=== PATIENT | female | born 1950 | race African-American/Black ===

== ENCOUNTER 2016-12-17 09:46 | Inpatient (IN) | payer OTHER ==
[2016-12-17 09:53] VITALS: BMI 44.9
--- NOTE | 2016-12-17 09:57 | PDOC ---
History of Present Illness - General Chief Complaint: Cold Symptoms Stated Complaint: COUGH Time Seen by Provider: 12/17/16 09:56 - History of Present Illness Initial Comments: 64y hx of DM (non-insulin dependent) and Hypothyroidism presenting with multiple complaints but most prominently a dry cough for the past 1-2 months. She has had a dry cough for the past 1-2 months and she has seen her primary care physician but she claims his treatments haven't been helpful. She also admits to more consistent lower extremity edema with some orthopnea and increased PARTIDA. Admits to occasional nausea and non-bloody, non bilious vomiting that are not related to medication ingestion or cough. Denies fevers, chills, chest pain, palpitations, sick contacts, or other sick symptoms. 12/17/16 10:03 Past History - Past Medical History Allergies/Adverse Reactions: Allergies Allergy/AdvReac Type Severity Reaction Status Date / Time No Known Allergies Allergy Verified 12/17/16 09:53 Home Medications: Ambulatory Orders Levothyroxine [Synthroid -] 100 mcg PO DAILY #30 tablet 12/23/14 Sitagliptin Phos/Metformin HCl [Janumet 50-500 mg Tablet] 1 each PO DAILY #30 tablet 12/23/14 Diabetes: Yes Thyroid Disease: Yes - Surgical History Abdominal Surgery: Yes (D&C) - Psycho/Social/Smoking Cessation Hx Anxiety: No Suicidal Ideation: No Smoking History: Former smoker Have you smoked in the past 12 months: No Information on smoking cessation initiated: No Hx Alcohol Use: No Drug/Substance Use Hx: No Substance Use Type: None Hx Substance Use Treatment: No Review of Systems - Review of Systems Constitutional: No: Chills, Diaphoresis, Fever, Loss of Appetite HEENTM: No: Blurred Vision, Recent change in vision Respiratory: Yes: Cough, Orthopnea, Shortness of Breath, SOB with Exertion. No : Wheezing, Productive cough, Hemoptysis Cardiac (ROS): Yes: Edema. No: Chest Pain, Irregular Heart Rate, Lightheadedness ABD/GI: Yes: Nausea, Vomiting. No: Abdominal Distended, Diarrhea : No: Burning, Dysuria, Discharge Musculoskeletal: Yes: Joint Pain. No: Back Pain Integumentary: No: Bruising Neurological: No: Headache, Numbness *Physical Exam - Vital Signs Last Vital Signs Temp Pulse Resp BP Pulse Ox 98.8 F 87 20 130/91 98 12/17/16 09:47 12/17/16 09:47 12/17/16 09:47 12/17/16 09:47 12/17/16 09:47 - Physical Exam General Appearance: Yes: Nourished, Appropriately Dressed, Obese. No: Apparent Distress HEENT: positive: EOMI, VALENTINE, Normal ENT Inspection, Pharynx Normal Neck: positive: Trachea midline, Other (THyroidectomy scar well healed). negative: Tender, Normal Thyroid Respiratory/Chest: positive: Crackles. negative: Chest Tender, Lungs Clear ( Mild crackles in bilateral lower lung bases.), Respiratory Distress, Accessory Muscle Use Cardiovascular: positive: Regular Rhythm, Regular Rate, Edema (Bilateral lower extremity 1+ pitting edema), JVD, Murmur, Systolic Murmur Gastrointestinal/Abdominal: positive: Normal Bowel Sounds, Flat, Soft. negative : Tender, Organomegaly, Pulsatile Mass Extremity: positive: Normal Range of Motion. negative: Normal Inspection ( stiffness of knees bilaterally) Neurologic: positive: Fully Oriented, Alert, Normal Mood/Affect ED Treatment Course - LABORATORY CBC & Chemistry Diagram: 12/17/16 09:40 12/17/16 10:56 Medical Decision Making - Medical Decision Making 66 year old with hypothyroidism and non-insulin dependent diabetes presenting with SOB, PARTIDA, orthopnea, and bilateral lower extremity edema with a heart murmur. This is most concerning for new CHF with risk factors included previous history of HTN and obesity. The CHF is most likely due to a heart valve abnormality (likely / AR) given cardio-auscultation findings. Less likely infectious in etiology given dry cough and chronicity plus lack of fever. Will follow up CXR, labs, and cardiac enzymes. 12/17/16 11:20 12/17/16 11:37 CBC significant for HgB of 5.5 with other lines WNL. Will transfuse 1 pack RBCs and admit for microcytic (most likely mechanical hemolysis from valvular abnormality although no schistocytes on the differential) anemic workup. 12/17/16 11:38 12/17/16 13:38 *DC/Admit/Observation/Transfer Diagnosis at time of Disposition: Microcytic anemia - Discharge Dispostion Condition at time of disposition: Improved Admit: Yes Decision to Admit order Date/Time: 12/17/16 13:39 - Attestations Physician Attestion: 12/17/16 13:41 I, Dr. Keesha Lozano, attest that this document has been prepared under my direction and personally reviewed by me in its entirety. I further attest, that it accurately reflects all work, treatment, procedures and medical decision -making performed by me.
[2016-12-17 11:09] LABS: BASOPHIL 2.3 % (0-2.0); EOSINOPHIL 1.7 % (0-4.5); MCHC 26.5 g/dl (32.0-36.0); MEAN CELL VOLUME 56.4 fl (80-96); MEAN PLT VOLUME 8.5 fl (7.5-11.1); NEUTROPHILS 58.8 % (42.8-82.8); PLATELET COUNT 405 K/MM3 (134-434); RDW 24.2 % (11.6-15.6)
[2016-12-17 11:11] LABS: MCH 14.9 pg (25.7-33.7)
--- NOTE | 2016-12-17 11:25 | PDOC ---
Attending Attestation - Resident Resident Name: BlakeKeesha - ED Attending Attestation I have performed the following: I have examined & evaluated the patient, The case was reviewed & discussed with the resident, I agree w/resident's findings & plan, Exceptions are as noted - HPI HPI: 12/17/16 11:17 66-year-old female presents with persistent and worsening cough/sob over 1 month. no cp/f/c, + orthopnea. Baseline minimal exertion 2/2 morbid obesity and knee problems, but states dyspnea on minimal exertion. - Physicial Exam PE: 12/17/16 11:19 VS as noted tachypneic but alert, speaking 6-7 words slight bibasilar crackles, otherwise clear without wheeze or focally decreased BS abd soft no pitting edema - Medical Decision Making 12/17/16 11:20 Patient seen and evaluated with the resident. I agree with the overall evaluation, assessment, and management with the following summary of visit: 66-year-old female with history of hypothyroidism and diabetes presents with one month of progressive shortness of breath and orthopnea. Presentation seems most consistent with volume overload or CHF, question secondary to ACS versus valvular disease versus thyroid disease versus other metabolic abnormality. Check labs including troponin EKG, chest x-ray Reassess, likely admission for cardiac workup 12/17/16 11:25 CBC notes marked anemia. Will need PRBC and admission.
[2016-12-17 11:28] LABS: ANION GAP 7 (8-16); CALCIUM 9.9 mg/dL (8.5-10.1); CO2 29 mmol/L (21-32); CREATININE 0.6 mg/dL (0.55-1.02); GLUCOSE,RANDOM 85 mg/dL (74-106)
[2016-12-17 11:30] LABS: TROPONIN I < 0.02 ng/ml (0.00-0.05)
[2016-12-17 12:03] LABS: FREE T4 0.94 ng/dl (0.76-1.46); THYROID STIMULATING HORMONE 6.35 uIU/ml (0.358-3.74)
--- NOTE | 2016-12-17 12:35 | EKG ---
Test Reason : Blood Pressure : / mmHG Vent. Rate : 086 BPM Atrial Rate : 086 BPM P-R Int : 162 ms QRS Dur : 082 ms QT Int : 366 ms P-R-T Axes : 000 164 151 degrees QTc Int : 437 ms SINUS RHYTHM NOTE: LEAD REVERSAL.IN LIMB LEADS REPEAT TRACING. Confirmed by SHE TODD MD ([id number]) on 12/17/2016 12:34:57 PM Referred By: Confirmed By:SHE TODD MD
[2016-12-17 13:54] LABS: ANISOCYTOSIS 4+; HYPOCHROMIA 4+; MICROCYTOSIS 4+; POLYCHROMASIA 1+
[2016-12-17 13:55] LABS: TARGET CELLS 2+; TEAR DROP CELLS 2+
[2016-12-18] MEDS: LEVOTHYROXINE NA 100 MCG TABLET (FP) PO SCH (06:33)
[2016-12-18] MEDS: sitaGLIPtin PHOSPHATE 50 MG TABLET PO SCH (06:33)
[2016-12-18 09:25] LABS: BASOPHIL 0.5 % (0-2.0); EOSINOPHIL 2.4 % (0-4.5); MCHC 27.5 g/dl (32.0-36.0); MEAN PLT VOLUME 8.4 fl (7.5-11.1); NEUTROPHILS 65.5 % (42.8-82.8); PLATELET COUNT 354 K/MM3 (134-434); RDW 28.4 % (11.6-15.6); WHITE BLOOD COUNT 10.9 K/mm3 (4.0-10.0)
[2016-12-18 09:32] LABS: MCH 16.8 pg (25.7-33.7)
[2016-12-18] MEDS ORDERED: ACETAMINOPHEN 325 MG TABLET (FP) PO PRN (11:17)
--- NOTE | 2016-12-18 11:59 | HP ---
Admitting History and Physical - Admission History of Present Illness: 64y hx of DM (non-insulin dependent) and Hypothyroidism presenting with multiple complaints but most prominently a dry cough for the past 1-2 months. She has had a dry cough for the past 1-2 months. She also admits to more consistent lower extremity edema with some orthopnea and increased PARTIDA. Admits to occasional nausea and non-bloody, non bilious vomiting. Pt continues with sob on minimal exertion no cp - Past Medical History Cardiovascular: Yes: Hyperlipdemia Pulmonary: Yes: COPD Endocrine: Yes: Diabetes Mellitus, Hypothyroidism - Smoking History Smoking history: Former smoker Have you smoked in the past 12 months: No - Alcohol/Substance Use Hx Alcohol Use: No Home Medications - Allergies Allergies/Adverse Reactions: Allergies Allergy/AdvReac Type Severity Reaction Status Date / Time No Known Allergies Allergy Verified 12/17/16 09:53 - Home Medications Home Medications: Ambulatory Orders Levothyroxine [Synthroid -] 100 mcg PO DAILY #30 tablet 12/23/14 Sitagliptin Phos/Metformin HCl [Janumet 50-500 mg Tablet] 1 each PO DAILY #30 tablet 12/23/14 Review of Systems - Review of Systems Cardiovascular: reports: Shortness of Breath Respiratory: reports: SOB, SOB on Exertion Gastrointestinal: reports: Bloating, Nausea, Vomiting Genitourinary: reports: No Symptoms Physical Examination Vital Signs: Vital Signs Temperature 98.9 F 12/18/16 06:00 Pulse Rate 77 12/18/16 06:00 Respiratory Rate 20 12/18/16 06:00 Blood Pressure 129/63 12/18/16 06:00 O2 Sat by Pulse Oximetry (%) 96 12/18/16 00:13 Neck: Yes: Supple Cardiovascular: Yes: Murmur, S1, S2 Respiratory: Yes: Diminished, On Nasal O2 Gastrointestinal: Yes: Normal Bowel Sounds, Soft Labs: CBC, BMP 12/18/16 09:00 Imaging - Results X-ray: Report Reviewed Problem List - Problems (1) Anemia Assessment/Plan: R/O GI LOSS TRANSFUSE MONITOR LABS PPI GI CONSULT Code(s): D64.9 - ANEMIA, UNSPECIFIED (2) GI (gastrointestinal bleed) Assessment/Plan: R/O GI LOSS TRANSFUSE W/U ORDERED MONITOR LABS PPI GI CONSULT Code(s): K92.2 - GASTROINTESTINAL HEMORRHAGE, UNSPECIFIED (3) Dyspnea Assessment/Plan: MAYBE DUE TO ANEMIA ECHO CARDIO Code(s): R06.00 - DYSPNEA, UNSPECIFIED (4) Diabetes Assessment/Plan: [facility] END[facility] Code(s): E11.9 - TYPE 2 DIABETES MELLITUS WITHOUT COMPLICATIONS
[2016-12-18 12:14] LABS: ALBUMIN 2.9 g/dl (3.4-5.0); ANION GAP 6 (8-16); CO2 31 mmol/L (21-32); GLUCOSE,RANDOM 112 mg/dL (74-106); SGPT/ALT 18 U/L (12-78)
[2016-12-18 12:19] LABS: ALK PHOS 70 U/L (45-117); BILIRUBIN,TOTAL 0.6 mg/dL (0.2-1.0); CREATININE 0.5 mg/dL (0.55-1.02); SGOT/AST 21 U/L (15-37); TOT PROT 6.4 g/dl (6.4-8.2); TROPONIN I < 0.02 ng/ml (0.00-0.05)
[2016-12-18] MEDS: ALBUTEROL SO4 2.5/IPRATROPIUM 0.5 INH SOL 3 ML VIAL.NEB. NEB SCH ×2 (13:15→18:03)
--- NOTE | 2016-12-18 14:12 | PN ---
Progress Note (short form) - Note Progress Note: PULMONARY CONSULTATION DICTATED 12/18/16 IMP DYSPNEA LIKELY SECONDARY TO SEVERE ANEMIA,? CARDIAC COUGH ? OBSTRUCTIVE AIRWAY DISEASE,? GERD LIKELY OSAS MORBID OBESITY HYPOTHYROIDISM PLAN TRANSFUSE MONITOR H+H INHALED BRONCHODILATORS PRN ECHO CHEST CT PFTS OUTPATIENT GI EVALUATION SLEEP STUDIES OUTPATIENT INPATIENT SLEEP SCREEN DR EM Problem List - Problems (1) Anemia Code(s): D64.9 - ANEMIA, UNSPECIFIED (2) Diabetes Code(s): E11.9 - TYPE 2 DIABETES MELLITUS WITHOUT COMPLICATIONS (3) Dyspnea Code(s): R06.00 - DYSPNEA, UNSPECIFIED (4) GI (gastrointestinal bleed) Code(s): K92.2 - GASTROINTESTINAL HEMORRHAGE, UNSPECIFIED (5) Cough Code(s): R05 - COUGH
--- NOTE | 2016-12-18 14:17 | CON.CARD ---
Consult Consult Specialty:: Cardiology Referred by:: Dr Shah Reason for Consultation:: SOB - History of Present Illness Chief Complaint: soboe History of Present Illness: 64y hx of NIDDM, surgical hypothyroidism, morbid obesity, colon polyps admitted with worsening PARTIDA and cough over the past few weeks without chest pain, orthopnea, pnd or edema. No palpitations dizziness or syncope. Found with severe anemia. - History Source History Provided By: Patient, Medical Record - Past Medical History Cardio/Vascular: Yes: Hyperlipdemia Pulmonary: Yes: COPD Endocrine: Yes: Diabetes Mellitus, Hypothyroidism - Alcohol/Substance Use Hx Alcohol Use: No - Smoking History Smoking history: Former smoker Have you smoked in the past 12 months: No Home Medications - Allergies Allergies/Adverse Reactions: Allergies Allergy/AdvReac Type Severity Reaction Status Date / Time No Known Allergies Allergy Verified 12/17/16 09:53 - Home Medications Home Medications: Ambulatory Orders Levothyroxine [Synthroid -] 100 mcg PO DAILY #30 tablet 12/23/14 Sitagliptin Phos/Metformin HCl [Janumet 50-500 mg Tablet] 1 each PO DAILY #30 tablet 12/23/14 Review of Systems - Review of Systems Constitutional: reports: Lethargy, Weakness Eyes: reports: No Symptoms HENT: reports: No Symptoms Neck: reports: No Symptoms Cardiovascular: reports: Shortness of Breath Respiratory: reports: Cough Musculoskeletal: reports: No Symptoms Integumentary: reports: No Symptoms Neurological: reports: No Symptoms - Risk Factors Known Risk Factors: Yes: Diabetes Mellitus Vital Signs: Vital Signs Temperature 98.9 F 12/18/16 06:00 Pulse Rate 88 12/18/16 13:10 Respiratory Rate 20 12/18/16 06:00 Blood Pressure 129/63 12/18/16 06:00 O2 Sat by Pulse Oximetry (%) 96 12/18/16 13:10 Constitutional: Yes: No Distress, Calm Eyes: Yes: Conjunctiva Clear, EOM Intact HENT: Yes: Atraumatic, Normocephalic Neck: Yes: Supple, Trachea Midline Respiratory: Yes: CTA Bilaterally Gastrointestinal: Yes: Normal Bowel Sounds, Abdomen, Obese Cardiovascular: Yes: Regular Rate and Rhythm JVD: No Carotid Bruit: No PMI: Non-Displaced Heart Sounds: Yes: S1, S2 Edema: No Peripheral Pulses WNL: Yes - Other Data Labs, Other Data: CBC, BMP 12/18/16 09:00 12/18/16 11:30 Troponin, BNP 12/18/16 12/18/16 11:30 11:30 Troponin I < 0.02 Cancelled B-Natriuretic Peptide 55.44 Troponin, BNP 12/18/16 12/18/16 11:30 11:30 Troponin I < 0.02 Cancelled B-Natriuretic Peptide 55.44 limb lead reversal, no acute st changes. Echo: Pending Imaging - Results Chest X-ray: Report Reviewed (henry tds cannot ro lll infilt.) EKG: Report Reviewed Assessment/Plan The symptoms are most likely due to her severe anemia. --transfuse as needed, GI evaluation. --No evidence of active/symptomatic CAD or CHF --Echo pending --would defer ischemia work up until she is a stable outpatient.
[2016-12-18] MEDS ORDERED: INSULIN (NOVOLOG) ASPART 100 UNITS/ML 10ML VIAL SQ SCH (16:30)
--- NOTE | 2016-12-18 17:00 | CONS ---
DATE OF CONSULTATION: 12/18/2016 PULMONARY CONSULTATION REFERRING PHYSICIAN: Justin Laboy M.D. HISTORY OF PRESENT ILLNESS: The patient is a 66-year-old black female, past medical history of hypothyroidism, morbid obesity, non-insulin dependent diabetes mellitus, history of tobacco use about half pack to three-quarters pack per day for many years, quit 14 years ago. Admitted to [facility] with complaint of increasing shortness of breath, dyspnea on exertion, nonproductive cough. Patient states the past month or two she was diagnosed with progressive increasing shortness of breath and dyspnea on exertion. She also complained of increasing orthopnea. She states she walks moderate to short distances and gets dyspnea. She also states she has had a cough which is nonproductive. Denies any chest pain or palpitations. Unsure whether or not she has wheezes. She presented to the emergency room above. In the emergency room, she is felt to have possible volume overload. She is also noted to be markedly anemic with hemoglobin of 5 g, which was transfused. She denies any GI bleed, she denies any hematemesis . She does complain of some abdominal discomfort. She denies any weight loss or night sweats, denies any hemoptysis. Denies any history of pneumonia, COPD or asthma in the past. Denies any history of cardiac disease. PAST MEDICAL HISTORY: Again includes non-insulin dependent diabetes mellitus, morbid obesity. No thyroid problems as per patient. diabetes mellitus. REVIEW OF SYSTEMS: Positive orthopnea. Positive dyspnea. No chest pain. No palpitations. Positive cough, no wheezing, no hemoptysis. Mild abdominal discomfort, nausea. No lower extremity edema. CURRENT MEDICATIONS: Include Tylenol, DuoNeb, Januvia, Novolog, pantoprazole, and Synthroid. PHYSICAL EXAMINATION: General: The patient is a morbidly obese black female, well-developed, well-nourished, awake, alert, appears in no acute respiratory distress. She is sitting up in bed. She is currently afebrile. Heart rate is 88, blood pressure is 129/63, respiratory rate is 20, and O2 saturation is 96% on 2 L. HEENT: Head is normocephalic, atraumatic. Neck: Supple. Heart: Regular. S1, S2. Chest: Diminished breath sounds bilaterally. Bibasilar crackles. Abdomen: Soft. Bowel sounds positive. Extremities: No cyanosis, edema. LABORATORY: WBC is 12.0, hemoglobin 5.5, hematocrit 20.7, and platelet count of 405,000. Repeat after transfusion 10.9. WBC: hemoglobin 6.7, hematocrit 24.4, platelet count of . Electrolytes: BUN is 8, creatinine is 0.5. BNP is 55. TSH is 6.88. Chest x-ray: poor inspiratory effort but no acute infiltration or effusions. IMPRESSION: 1. Dyspnea, etiology to be determined. Likely multiple factors. One, possible secondary to mild cardiac, possibly secondary to severe anemia, three less likely obstructive airway disease. 2 . Cough, etiology undetermined, rule out possible secondary to mild obstructive airway disease, or possible secondary to gastroesophageal reflux disease, hyperactive airway syndrome with nasal drip, possible congestive heart failure. 3. Likely obstructive sleep apnea syndrome. PLAN: Monitor H&H. Transfuse inhaled bronchodilators p.r.n., schedule for obtain echocardiogram, will schedule for PFTs as outpatient, and so patient also consider sleep studies as outpatient. GAMAL EM M.D. SABINE/[id number]
--- NOTE | 2016-12-18 18:29 | CON.GI ---
Consult Consult Specialty:: gastroenterology Referred by:: Dr Shah - History of Present Illness History of Present Illness: 66y/ female hx of NIDDM, surgical hypothyroidism, morbid obesity, colon polyps admitted with worsening PARTIDA and cough over the past few weeks without chest pain , orthopnea, pnd or edema. No palpitations dizziness or syncope.On routine labs he was noted to have severe anemia. She has 1 year history of rectal bleeding which she claims to be secondary to bleeding hemorrhoids. She denies abdominal pain, and change in bowel habits. - Past Medical History Cardio/Vascular: Yes: Hyperlipdemia Pulmonary: Yes: COPD Endocrine: Yes: Diabetes Mellitus, Hypothyroidism - Alcohol/Substance Use Hx Alcohol Use: No - Smoking History Smoking history: Former smoker Have you smoked in the past 12 months: No Home Medications - Allergies Allergies/Adverse Reactions: Allergies Allergy/AdvReac Type Severity Reaction Status Date / Time No Known Allergies Allergy Verified 12/17/16 09:53 - Home Medications Home Medications: Ambulatory Orders Levothyroxine [Synthroid -] 100 mcg PO DAILY #30 tablet 12/23/14 Sitagliptin Phos/Metformin HCl [Janumet 50-500 mg Tablet] 1 each PO DAILY #30 tablet 12/23/14 Review of Systems - Review of Systems Constitutional: denies: Fever Eyes: denies: Blind Spots HENT: denies: Difficult Swallowing Neck: denies: Decreased ROM, Tenderness Respiratory: denies: Cough Gastrointestinal: reports: Rectal Bleeding. denies: Abdominal Pain, Constipation Physical Exam-GI Vital Signs: Vital Signs Temperature 98.9 F 12/18/16 14:00 Pulse Rate 86 12/18/16 14:00 Respiratory Rate 20 12/18/16 14:00 Blood Pressure 114/48 12/18/16 14:00 O2 Sat by Pulse Oximetry (%) 96 12/18/16 13:10 Constitutional: Yes: Well Nourished Eyes: Yes: Conjunctiva Clear HENT: Yes: Atraumatic Neck: Yes: Supple Cardiovascular: Yes: Regular Rate and Rhythm Respiratory: Yes: CTA Bilaterally ...Palpate: Yes: Soft. No: Firm/Rigid, Guarding, Hepatomegaly, Mass, Pulsatile Mass, Splenomegaly, Tenderness Labs: CBC, BMP 12/18/16 09:00 12/18/16 11:30 Problem List - Problems (1) Anemia Code(s): D64.9 - ANEMIA, UNSPECIFIED (2) Rectal bleeding Assessment/Plan: R> for colonoscopy once medicall ycleared Transfuse to hemoglobin greater than 8 Code(s): K62.5 - HEMORRHAGE OF ANUS AND RECTUM
[2016-12-18] MEDS ORDERED: SODIUM CHLORIDE 100 ML IVPB ONE (20:21)
[2016-12-18] MEDS ORDERED: PANTOPRAZOLE SODIUM 40 MG VIAL ONE (20:21)
[2016-12-18] MEDS ORDERED: FUROSEMIDE 40 MG/4 ML INJECTABLE VIAL IVPUSH ONE (20:30)
[2016-12-18 21:17] LABS: URINE APPEARANCE CLEAR; URINE BILIRUBIN NEGATIVE (NEGATIVE); URINE BLOOD NEGATIVE (NEGATIVE); URINE COLOR STRAW; URINE GLUCOSE (UA) NEGATIVE (NEGATIVE); URINE KETONE NEGATIVE (NEGATIVE); URINE LEUK ESTERASE NEGATIVE (NEGATIVE); URINE NITRITE NEGATIVE (NEGATIVE); URINE PROTEIN NEGATIVE (NEGATIVE); URINE UROBILINOGEN NEGATIVE mg/dL (0.2-1.0)
[2016-12-18] MEDS: INSULIN SLIDING SCALE (NOVOLOG) 1 VIAL SQ SCH (21:52)
[2016-12-18] MEDS ORDERED: ALPRAZolam 0.25 MG TABLET PO ONE (22:00)
--- NOTE | 2016-12-19 00:22 | CONSULT ---
Consult Consult Specialty:: endocrine Reason for Consultation:: hypothyroidism - History of Present Illness Chief Complaint: weakness History of Present Illness: 64y hx of DM (non-insulin dependent) and Hypothyroidism presenting with multiple complaints but most prominently a dry cough for the past 1-2 months. She has had a dry cough for the past 1-2 months. She also admits to more consistent lower extremity edema with some orthopnea and increased PARTIDA. Admits to occasional nausea,weakness and difficulty catching her breath,with slight walking - History Source History Provided By: Patient - Past Medical History Cardio/Vascular: Yes: Hyperlipdemia Pulmonary: Yes: COPD Endocrine: Yes: Diabetes Mellitus, Hypothyroidism - Alcohol/Substance Use Hx Alcohol Use: No - Smoking History Smoking history: Former smoker Have you smoked in the past 12 months: No Home Medications - Allergies Allergies/Adverse Reactions: Allergies Allergy/AdvReac Type Severity Reaction Status Date / Time No Known Allergies Allergy Verified 12/17/16 09:53 - Home Medications Home Medications: Ambulatory Orders Levothyroxine [Synthroid -] 100 mcg PO DAILY #30 tablet 12/23/14 Sitagliptin Phos/Metformin HCl [Janumet 50-500 mg Tablet] 1 each PO DAILY #30 tablet 12/23/14 Review of Systems - Review of Systems Constitutional: reports: Loss of Appetite, Weakness Eyes: reports: No Symptoms HENT: reports: No Symptoms Neck: reports: No Symptoms Cardiovascular: reports: Shortness of Breath Respiratory: reports: Cough, Exercise Intolerance, SOB, SOB on Exertion Gastrointestinal: reports: Bloating, Constipation Genitourinary: reports: No Symptoms Breasts: reports: No Symptoms Reported Musculoskeletal: reports: Back Pain, Extremity Pain, Joint Swelling, Muscle Pain , Muscle Cramps Integumentary: reports: No Symptoms Neurological: reports: Unsteady Gait, Weakness Endocrine: reports: Intolerance to Cold Psychiatric: reports: Anxiety Physical Exam Vital Signs: Vital Signs Temperature 98.9 F 12/18/16 21:47 Pulse Rate 88 12/18/16 21:47 Respiratory Rate 20 12/18/16 21:47 Blood Pressure 137/84 12/18/16 21:47 O2 Sat by Pulse Oximetry (%) 97 12/18/16 21:00 Constitutional: Yes: Anxious Eyes: Yes: EOM Intact HENT: Yes: Normocephalic Neck: Yes: Thyromegaly Cardiovascular: Yes: Regular Rate and Rhythm Respiratory: Yes: CTA Bilaterally Gastrointestinal: Yes: Normal Bowel Sounds ...Rectal Exam: Yes: Deferred Renal/: Yes: WNL Breast(s): Yes: WNL Musculoskeletal: Yes: Muscle Weakness Extremities: Yes: WNL Edema: Yes Edema: LLE: Trace, RLE: Trace Peripheral Pulses WNL: Yes Labs: CBC, BMP 12/18/16 09:00 12/18/16 11:30 Problem List - Problems (1) Anemia Code(s): D64.9 - ANEMIA, UNSPECIFIED (2) Cough Code(s): R05 - COUGH (3) Diabetes Code(s): E11.9 - TYPE 2 DIABETES MELLITUS WITHOUT COMPLICATIONS (4) Dyspnea Code(s): R06.00 - DYSPNEA, UNSPECIFIED (5) Rectal bleeding Code(s): K62.5 - HEMORRHAGE OF ANUS AND RECTUM Assessment/Plan Current Active Problems Anemia (Acute) Cough (Acute) Diabetes (Acute) Dyspnea (Acute) GI (gastrointestinal bleed) (Acute) Microcytic anemia (Acute) Rectal bleeding (Acute) Abnormal Lab Results 12/17/16 12/17/16 12/18/16 11:34 12:08 09:00 WBC 10.9 H Hgb 6.7 L* D Hct 24.4 L D MCV 61.0 L MCH 16.8 L MCHC 27.5 L RDW 28.4 H Anion Gap Creatinine Random Glucose Ferritin Albumin TSH Crossmatch See Detail See Detail 12/18/16 12/18/16 12/18/16 11:30 12:25 12:30 WBC Hgb Hct MCV MCH MCHC RDW Anion Gap 6 L Creatinine 0.5 L Random Glucose 112 H D Ferritin 6.5 L Albumin 2.9 L TSH 6.88 H D Crossmatch Laboratory Results - last 24 hr 12/17/16 12/17/16 12/18/16 11:34 12:08 05:35 WBC RBC Hgb Hct MCV MCH MCHC RDW Plt Count MPV Neutrophils % Lymphocytes % Monocytes % Eosinophils % Basophils % Sodium Potassium Chloride Carbon Dioxide Anion Gap BUN Creatinine Creat Clearance w eGFR POC Glucometer Random Glucose Hemoglobin A1c % Cancelled Calcium Ferritin Total Bilirubin AST ALT Alkaline Phosphatase Creatine Kinase Troponin I B-Natriuretic Peptide Total Protein Albumin TSH Urine Color Urine Appearance Urine pH Ur Specific [place] Urine Protein Urine Glucose (UA) Urine Ketones Urine Blood Urine Nitrite Urine Bilirubin Urine Urobilinogen Ur Leukocyte Esterase Blood Type AB NEGATIVE AB NEGATIVE Antibody Screen Negative Crossmatch See Detail See Detail 12/18/16 12/18/16 12/18/16 09:00 11:30 11:30 WBC 10.9 H RBC 3.99 Hgb 6.7 L* D Hct 24.4 L D MCV 61.0 L MCH 16.8 L MCHC 27.5 L RDW 28.4 H Plt Count 354 MPV 8.4 Neutrophils % 65.5 Lymphocytes % 25.0 Monocytes % 6.6 Eosinophils % 2.4 Basophils % 0.5 Sodium 143 Potassium 4.1 Chloride 106 Carbon Dioxide 31 Anion Gap 6 L BUN 8 D Creatinine 0.5 L Creat Clearance w eGFR > 60 POC Glucometer Random Glucose 112 H D Hemoglobin A1c % Calcium 9.0 Ferritin Total Bilirubin 0.6 D AST 21 D ALT 18 Alkaline Phosphatase 70 Creatine Kinase 82 Cancelled Troponin I < 0.02 Cancelled B-Natriuretic Peptide 55.44 Total Protein 6.4 Albumin 2.9 L TSH Urine Color Urine Appearance Urine pH Ur Specific [place] Urine Protein Urine Glucose (UA) Urine Ketones Urine Blood Urine Nitrite Urine Bilirubin Urine Urobilinogen Ur Leukocyte Esterase Blood Type Antibody Screen Crossmatch 12/18/16 12/18/16 12/18/16 12:15 12:25 12:30 WBC RBC Hgb Hct MCV MCH MCHC RDW Plt Count MPV Neutrophils % Lymphocytes % Monocytes % Eosinophils % Basophils % Sodium Potassium Chloride Carbon Dioxide Anion Gap BUN Creatinine Creat Clearance w eGFR POC Glucometer Random Glucose Hemoglobin A1c % 5.3 Calcium Ferritin 6.5 L Total Bilirubin AST ALT Alkaline Phosphatase Creatine Kinase Troponin I B-Natriuretic Peptide Total Protein Albumin TSH 6.88 H D Urine Color Urine Appearance Urine pH Ur Specific [place] Urine Protein Urine Glucose (UA) Urine Ketones Urine Blood Urine Nitrite Urine Bilirubin Urine Urobilinogen Ur Leukocyte Esterase Blood Type Antibody Screen Crossmatch 12/18/16 12/18/16 12/18/16 16:13 20:00 21:46 WBC RBC Hgb Hct MCV MCH MCHC RDW Plt Count MPV Neutrophils % Lymphocytes % Monocytes % Eosinophils % Basophils % Sodium Potassium Chloride Carbon Dioxide Anion Gap BUN Creatinine Creat Clearance w eGFR POC Glucometer 107 137 Random Glucose Hemoglobin A1c % Calcium Ferritin Total Bilirubin AST ALT Alkaline Phosphatase Creatine Kinase Troponin I B-Natriuretic Peptide Total Protein Albumin TSH Urine Color Straw Urine Appearance Clear Urine pH 6.0 Ur Specific [place] 1.015 Urine Protein Negative Urine Glucose (UA) Negative Urine Ketones Negative Urine Blood Negative Urine Nitrite Negative Urine Bilirubin Negative Urine Urobilinogen Negative Ur Leukocyte Esterase Negative Blood Type Antibody Screen Crossmatch Laboratory Tests 12/18/16 12/18/16 12/18/16 11:30 12:25 16:13 POC Glucometer 107 Random Glucose 112 H D TSH 6.88 H D 12/18/16 21:46 POC Glucometer 137 Random Glucose TSH plan: bgm acmeal hs novolog scale with coverage synthroid 100mcg daily ck [id number]
[2016-12-19] MEDS: ALBUTEROL SO4 2.5/IPRATROPIUM 0.5 INH SOL 3 ML VIAL.NEB. NEB SCH ×4 (00:26→18:52)
[2016-12-19] MEDS: PANTOPRAZOLE SODIUM 40 MG in SODIUM CHLORIDE 100 ML IVPB SCH ×3 (00:30→21:57)
[2016-12-19 06:06] LABS: SERUM IRON 16 ug/dL (27-139); TOTAL IRON BINDING CAPACITY 424 ug/dL (250-450); UIBC 408 ug/dL (118-369)
[2016-12-19] MEDS: LEVOTHYROXINE NA 100 MCG TABLET (FP) PO SCH (06:23)
[2016-12-19] MEDS: sitaGLIPtin PHOSPHATE 50 MG TABLET PO SCH (06:23)
[2016-12-19] MEDS: INSULIN SLIDING SCALE (NOVOLOG) 1 VIAL SQ SCH ×4 (06:23→21:56)
[2016-12-19 07:32] LABS: BASOPHIL 0.3 % (0-2.0); EOSINOPHIL 3.2 % (0-4.5); MCHC 28.8 g/dl (32.0-36.0); MEAN CELL VOLUME 64.1 fl (80-96); MEAN PLT VOLUME 8.4 fl (7.5-11.1); NEUTROPHILS 67.4 % (42.8-82.8); PLATELET COUNT 353 K/MM3 (134-434); RDW 31.7 % (11.6-15.6); WHITE BLOOD COUNT 11.2 K/mm3 (4.0-10.0)
[2016-12-19 07:35] LABS: MCH 18.5 pg (25.7-33.7)
[2016-12-19 07:52] LABS: ALBUMIN 3.1 g/dl (3.4-5.0); ALK PHOS 77 U/L (45-117); ANION GAP 8 (8-16); BILIRUBIN,TOTAL 0.8 mg/dL (0.2-1.0); CALCIUM 9.2 mg/dL (8.5-10.1); CO2 34 mmol/L (21-32); CREATININE 0.6 mg/dL (0.55-1.02); GLUCOSE,RANDOM 118 mg/dL (74-106); SGOT/AST 23 U/L (15-37); SGPT/ALT 21 U/L (12-78); TOT PROT 6.8 g/dl (6.4-8.2)
--- NOTE | 2016-12-19 08:40 | PN ---
Progress Note, Physician History of Present Illness: SOME IMPROVEMENT - Current Medication List Current Medications: Active Medications Acetaminophen (Tylenol -) 650 mg PO Q4H PRN PRN Reason: FEVER OR PAIN Albuterol/Ipratropium (Duoneb -) 1 amp NEB QIDR [facility] Last Admin: 12/19/16 07:21 Dose: 1 amp Pantoprazole Sodium 40 mg/ (Sodium Chloride) 100 mls @ 200 mls/hr IVPB BID [facility] Last Admin: 12/19/16 00:30 Dose: 200 mls/hr Insulin Aspart (Novolog Vial Sliding Scale -) 1 vial SQ ACHS [facility] PRN Reason: Protocol Last Admin: 12/19/16 06:23 Dose: Not Given Levothyroxine Sodium (Synthroid -) 100 mcg PO DAILY@07 [facility] Last Admin: 12/19/16 06:23 Dose: 100 mcg Sitagliptin Phosphate (Januvia -) 50 mg PO DAILY@0700 [facility] Last Admin: 12/19/16 06:23 Dose: 50 mg - Objective Vital Signs: Vital Signs Temperature 98.7 F 12/19/16 05:56 Pulse Rate 88 12/19/16 05:56 Respiratory Rate 20 12/19/16 05:56 Blood Pressure 125/68 12/19/16 05:56 O2 Sat by Pulse Oximetry (%) 97 12/18/16 21:00 Cardiovascular: Yes: Regular Rate and Rhythm Respiratory: Yes: Regular, CTA Bilaterally Gastrointestinal: Yes: Normal Bowel Sounds, Soft. No: Tenderness Labs: CBC, BMP 12/19/16 06:00 12/19/16 06:00 Problem List - Problems (1) Anemia Assessment/Plan: - GI LOSS---AWAIT W/U TRANSFUSE MONITOR LABS PPI GI CONSULT Code(s): D64.9 - ANEMIA, UNSPECIFIED (2) GI (gastrointestinal bleed) Assessment/Plan: GI LOSS---W/U PENDING TRANSFUSE W/U ORDERED MONITOR LABS PPI GI CONSULT Code(s): K92.2 - GASTROINTESTINAL HEMORRHAGE, UNSPECIFIED (3) Dyspnea Assessment/Plan: MAYBE DUE TO ANEMIA ECHO CARDIO Code(s): R06.00 - DYSPNEA, UNSPECIFIED (4) Diabetes Assessment/Plan: BGM ENDO Code(s): E11.9 - TYPE 2 DIABETES MELLITUS WITHOUT COMPLICATIONS
[2016-12-19] MEDS ORDERED: PANTOPRAZOLE SODIUM 40 MG VIAL ONE ×2 (09:49→19:59)
[2016-12-19] MEDS ORDERED: SODIUM CHLORIDE 100 ML IVPB ONE ×2 (09:50→19:59)
--- NOTE | 2016-12-19 10:09 | PN ---
Progress Note (short form) - Note Progress Note: Awake and alert. Reports that her breathing is slightly better. Some dry cough and throat clearing. No hemoptysis. CT pending. Intake & Output 12/16/16 12/17/16 12/18/16 12/19/16 23:59 23:59 23:59 23:59 Intake Total 200 940 650 Output Total 2000 1200 Balance 200 -1060 -550 Weight 230 lb 219 lb 8 oz Last Vital Signs Temp Pulse Resp BP Pulse Ox 98.7 F 88 20 125/68 97 12/19/16 05:56 12/19/16 05:56 12/19/16 05:56 12/19/16 05:56 12/18/16 21:00 Active Medications Generic Name Dose Route Start Last Admin Trade Name Freq PRN Reason Stop Dose Admin Acetaminophen 650 mg 12/18/16 11:17 Tylenol - PO Q4H PRN FEVER OR PAIN Albuterol/Ipratropium 1 amp 12/18/16 12:00 12/19/16 07:21 Duoneb - NEB 1 amp QIDR YOSELYN Administration Pantoprazole Sodium 40 mg/ 100 mls @ 200 mls/hr 12/18/16 22:00 12/19/16 09:52 Sodium Chloride IVPB 200 mls/hr BID YOSELYN Administration Insulin Aspart 1 vial 12/18/16 22:00 12/19/16 06:23 Novolog Vial Sliding Scale - SQ Not Given ACHS [facility] Protocol Levothyroxine Sodium 100 mcg 12/18/16 07:00 12/19/16 06:23 Synthroid - PO 100 mcg DAILY@0700 YOSELYN Administration Sitagliptin Phosphate 50 mg 12/18/16 07:00 12/19/16 06:23 Januvia - PO 50 mg DAILY@0700 YOSELYN Administration General: Awake and alert, NAD Cardiovascular: Yes: Regular Rate and Rhythm Respiratory: Yes: Diminished at the bases, Clear Gastrointestinal: Yes: Normal Bowel Sounds, Soft. No: Tenderness Neuro: Non-focal Labs: Laboratory Results - last 24 hr 12/17/16 12/17/16 12/18/16 11:34 12:08 05:35 WBC RBC Hgb Hct MCV MCH MCHC RDW Plt Count MPV Neutrophils % Lymphocytes % Monocytes % Eosinophils % Basophils % Sodium Potassium Chloride Carbon Dioxide Anion Gap BUN Creatinine Creat Clearance w eGFR POC Glucometer Random Glucose Hemoglobin A1c % Cancelled Calcium Iron TIBC Iron Saturation Ferritin Total Bilirubin AST ALT Alkaline Phosphatase Creatine Kinase Troponin I B-Natriuretic Peptide Total Protein Albumin TSH Urine Color Urine Appearance Urine pH Ur Specific [place] Urine Protein Urine Glucose (UA) Urine Ketones Urine Blood Urine Nitrite Urine Bilirubin Urine Urobilinogen Ur Leukocyte Esterase Blood Type AB NEGATIVE AB NEGATIVE Antibody Screen Negative Crossmatch See Detail See Detail 12/18/16 12/18/16 12/18/16 11:30 11:30 12:15 WBC RBC Hgb Hct MCV MCH MCHC RDW Plt Count MPV Neutrophils % Lymphocytes % Monocytes % Eosinophils % Basophils % Sodium 143 Potassium 4.1 Chloride 106 Carbon Dioxide 31 Anion Gap 6 L BUN 8 D Creatinine 0.5 L Creat Clearance w eGFR > 60 POC Glucometer Random Glucose 112 H D Hemoglobin A1c % 5.3 Calcium 9.0 Iron TIBC Iron Saturation Ferritin Total Bilirubin 0.6 D AST 21 D ALT 18 Alkaline Phosphatase 70 Creatine Kinase 82 Cancelled Troponin I < 0.02 Cancelled B-Natriuretic Peptide 55.44 Total Protein 6.4 Albumin 2.9 L TSH Urine Color Urine Appearance Urine pH Ur Specific [place] Urine Protein Urine Glucose (UA) Urine Ketones Urine Blood Urine Nitrite Urine Bilirubin Urine Urobilinogen Ur Leukocyte Esterase Blood Type Antibody Screen Crossmatch 12/18/16 12/18/16 12/18/16 12:25 12:25 12:30 WBC RBC Hgb Hct MCV MCH MCHC RDW Plt Count MPV Neutrophils % Lymphocytes % Monocytes % Eosinophils % Basophils % Sodium Potassium Chloride Carbon Dioxide Anion Gap BUN Creatinine Creat Clearance w eGFR POC Glucometer Random Glucose Hemoglobin A1c % Calcium Iron 16 L TIBC 424 Iron Saturation 4 L Ferritin 6.5 L Total Bilirubin AST ALT Alkaline Phosphatase Creatine Kinase Troponin I B-Natriuretic Peptide Total Protein Albumin TSH 6.88 H D Urine Color Urine Appearance Urine pH Ur Specific [place] Urine Protein Urine Glucose (UA) Urine Ketones Urine Blood Urine Nitrite Urine Bilirubin Urine Urobilinogen Ur Leukocyte Esterase Blood Type Antibody Screen Crossmatch 12/18/16 12/18/16 12/18/16 16:13 20:00 21:46 WBC RBC Hgb Hct MCV MCH MCHC RDW Plt Count MPV Neutrophils % Lymphocytes % Monocytes % Eosinophils % Basophils % Sodium Potassium Chloride Carbon Dioxide Anion Gap BUN Creatinine Creat Clearance w eGFR POC Glucometer 107 137 Random Glucose Hemoglobin A1c % Calcium Iron TIBC Iron Saturation Ferritin Total Bilirubin AST ALT Alkaline Phosphatase Creatine Kinase Troponin I B-Natriuretic Peptide Total Protein Albumin TSH Urine Color Straw Urine Appearance Clear Urine pH 6.0 Ur Specific [place] 1.015 Urine Protein Negative Urine Glucose (UA) Negative Urine Ketones Negative Urine Blood Negative Urine Nitrite Negative Urine Bilirubin Negative Urine Urobilinogen Negative Ur Leukocyte Esterase Negative Blood Type Antibody Screen Crossmatch 12/19/16 12/19/16 06:00 06:00 WBC 11.2 H RBC 4.52 Hgb 8.3 L D Hct 29.0 L D MCV 64.1 L MCH 18.5 L MCHC 28.8 L RDW 31.7 H Plt Count 353 MPV 8.4 Neutrophils % 67.4 Lymphocytes % 21.4 Monocytes % 7.7 Eosinophils % 3.2 Basophils % 0.3 Sodium 142 Potassium 3.8 Chloride 100 Carbon Dioxide 34 H Anion Gap 8 BUN 10 D Creatinine 0.6 Creat Clearance w eGFR > 60 POC Glucometer Random Glucose 118 H Hemoglobin A1c % Calcium 9.2 Iron TIBC Iron Saturation Ferritin Total Bilirubin 0.8 D AST 23 ALT 21 Alkaline Phosphatase 77 Creatine Kinase Troponin I B-Natriuretic Peptide Total Protein 6.8 Albumin 3.1 L TSH Urine Color Urine Appearance Urine pH Ur Specific [place] Urine Protein Urine Glucose (UA) Urine Ketones Urine Blood Urine Nitrite Urine Bilirubin Urine Urobilinogen Ur Leukocyte Esterase Blood Type Antibody Screen Crossmatch Problem List - Problems (1) Anemia Assessment/Plan: Code(s): D64.9 - ANEMIA, UNSPECIFIED (2) GI (gastrointestinal bleed) Assessment/Plan: Code(s): K92.2 - GASTROINTESTINAL HEMORRHAGE, UNSPECIFIED (3) Dyspnea Assessment/Plan: Code(s): R06.00 - DYSPNEA, UNSPECIFIED (4) Diabetes Assessment/Plan: Code(s): E11.9 - TYPE 2 DIABETES MELLITUS WITHOUT COMPLICATIONS DYSPNEA LIKELY SECONDARY TO SEVERE ANEMIA,? CARDIAC COUGH ? OBSTRUCTIVE AIRWAY DISEASE,? GERD LIKELY OSAS MORBID OBESITY HYPOTHYROIDISM PLAN: CT Chest ordered O2 as needed BD TX PRN PFTs outpatient Need Sleep workup after discharge ECHO GI workup ongoing Dr Sheets
--- NOTE | 2016-12-19 11:57 | EKG ---
Test Reason : Blood Pressure : / mmHG Vent. Rate : 079 BPM Atrial Rate : 079 BPM P-R Int : 150 ms QRS Dur : 090 ms QT Int : 382 ms P-R-T Axes : 042 010 035 degrees QTc Int : 438 ms NORMAL SINUS RHYTHM WITH SINUS ARRHYTHMIA NORMAL ECG WHEN COMPARED WITH ECG OF 17-DEC-2016 10:44, LEFT POSTERIOR FASCICULAR BLOCK IS NO LONGER PRESENT T WAVE INVERSION NO LONGER EVIDENT IN LATERAL LEADS Confirmed by ALEJANDRO MCKEON, TREVOR ([id number]) on 12/19/2016 11:56:37 AM Referred By: Pavel HERNANDEZ Confirmed By:TREVOR ALLEN MD
--- NOTE | 2016-12-19 15:33 | PN ---
Progress Note, Physician Chief Complaint: no new complaints History of Present Illness: 64y hx of NIDDM, surgical hypothyroidism, morbid obesity, colon polyps admitted with worsening PARTIDA and cough over the past few weeks without chest pain, orthopnea, pnd or edema. No palpitations dizziness or syncope. Found with severe anemia. Seen by GI and pulmonary. Awaiting colonoscopy. Echo 12/19/16 normal EF. - Current Medication List Current Medications: Active Medications Acetaminophen (Tylenol -) 650 mg PO Q4H PRN PRN Reason: FEVER OR PAIN Albuterol/Ipratropium (Duoneb -) 1 amp NEB QIDR [facility] Last Admin: 12/19/16 11:11 Dose: 1 amp Pantoprazole Sodium 40 mg/ (Sodium Chloride) 100 mls @ 200 mls/hr IVPB BID [facility] Last Admin: 12/19/16 09:52 Dose: 200 mls/hr Insulin Aspart (Novolog Vial Sliding Scale -) 1 vial SQ ACHS [facility] PRN Reason: Protocol Last Admin: 12/19/16 11:56 Dose: Not Given Levothyroxine Sodium (Synthroid -) 100 mcg PO DAILY@0700 [facility] Last Admin: 12/19/16 06:23 Dose: 100 mcg Sitagliptin Phosphate (Januvia -) 50 mg PO DAILY@0700 [facility] Last Admin: 12/19/16 06:23 Dose: 50 mg - Objective Vital Signs: Vital Signs Temperature 98.8 F 12/19/16 14:12 Pulse Rate 85 12/19/16 14:12 Respiratory Rate 22 12/19/16 14:12 Blood Pressure 104/61 12/19/16 14:12 O2 Sat by Pulse Oximetry (%) 95 12/19/16 11:11 Constitutional: Yes: No Distress Eyes: Yes: Conjunctiva Clear, EOM Intact HENT: Yes: Atraumatic, Normocephalic Neck: Yes: Supple, Trachea Midline Cardiovascular: Yes: Regular Rate and Rhythm Respiratory: Yes: CTA Bilaterally Gastrointestinal: Yes: Normal Bowel Sounds, Soft, Abdomen, Obese Edema: No Peripheral Pulses WNL: Yes Labs: CBC, BMP 12/19/16 06:00 12/19/16 06:00 Assessment/Plan The symptoms are most likely due to her severe anemia. --transfuse as needed, GI evaluation. --No evidence of active/symptomatic CAD or CHF --Echo is normal. --would defer ischemia work up until she is a stable outpatient. --There are no cardiac contraindications to GI workup. Cardiac status is stable.
[2016-12-19] MEDS ORDERED: POLYETHYLENE GLYCOL 3350 255 GM BTL PO ONE (17:03)
[2016-12-19] MEDS ORDERED: ALPRAZolam 0.25 MG TABLET PO ONE (21:00)
[2016-12-20] MEDS: ALBUTEROL SO4 2.5/IPRATROPIUM 0.5 INH SOL 3 ML VIAL.NEB. NEB SCH ×3 (00:03→17:24)
[2016-12-20] MEDS ORDERED: BISACODYL 5 MG TABLET.DR (FP) PO ONE (04:04)
[2016-12-20] MEDS: INSULIN SLIDING SCALE (NOVOLOG) 1 VIAL SQ SCH ×4 (06:11→21:59)
[2016-12-20] MEDS: sitaGLIPtin PHOSPHATE 50 MG TABLET PO SCH (06:30)
[2016-12-20] MEDS: LEVOTHYROXINE NA 100 MCG TABLET (FP) PO SCH (06:30)
[2016-12-20 07:23] LABS: BASOPHIL 0.4 % (0-2.0); EOSINOPHIL 4.6 % (0-4.5); MCHC 29.2 g/dl (32.0-36.0); MEAN CELL VOLUME 65.5 fl (80-96); MEAN PLT VOLUME 8.5 fl (7.5-11.1); NEUTROPHILS 66.4 % (42.8-82.8); PLATELET COUNT 338 K/MM3 (134-434); RDW 31.6 % (11.6-15.6); WHITE BLOOD COUNT 12.6 K/mm3 (4.0-10.0)
[2016-12-20 07:26] LABS: MCH 19.1 pg (25.7-33.7)
--- NOTE | 2016-12-20 07:51 | PN ---
Progress Note, Physician History of Present Illness: REFUSED COLOOSCOPY D/W PT--STILL REFUSES - Current Medication List Current Medications: Active Medications Acetaminophen (Tylenol -) 650 mg PO Q4H PRN PRN Reason: FEVER OR PAIN Albuterol/Ipratropium (Duoneb -) 1 amp NEB QIDR [facility] Last Admin: 12/20/16 00:03 Dose: Not Given Pantoprazole Sodium 40 mg/ (Sodium Chloride) 100 mls @ 200 mls/hr IVPB BID [facility] Last Admin: 12/19/16 21:57 Dose: 200 mls/hr Insulin Aspart (Novolog Vial Sliding Scale -) 1 vial SQ ACHS [facility] PRN Reason: Protocol Last Admin: 12/20/16 06:11 Dose: Not Given Levothyroxine Sodium (Synthroid -) 100 mcg PO DAILY@0700 [facility] Last Admin: 12/20/16 06:30 Dose: 100 mcg Sitagliptin Phosphate (Januvia -) 50 mg PO DAILY@0700 [facility] Last Admin: 12/20/16 06:30 Dose: 50 mg Sodium Phosphate (Fleet Adult Rectal Enema -) 133 ml SC ONCE ONE Stop: 12/20/16 13:01 - Objective Vital Signs: Vital Signs Temperature 98.7 F 12/20/16 05:00 Pulse Rate 80 12/20/16 05:00 Respiratory Rate 20 12/20/16 05:00 Blood Pressure 121/64 12/20/16 05:00 O2 Sat by Pulse Oximetry (%) 98 12/19/16 20:40 Cardiovascular: Yes: Regular Rate and Rhythm Respiratory: Yes: Diminished, SOB on Exertion Gastrointestinal: Yes: Normal Bowel Sounds, Soft Labs: CBC, BMP 12/20/16 06:00 12/19/16 06:00 Problem List - Problems (1) Anemia Assessment/Plan: - GI LOSS---AWAIT W/U TRANSFUSE MONITOR LABS PPI GI CONSULT--REFUSES COLON HEM CONSULT Code(s): D64.9 - ANEMIA, UNSPECIFIED (2) GI (gastrointestinal bleed) Assessment/Plan: GI LOSS---W/U PENDING--REFUSES COLON TRANSFUSE W/U ORDERED MONITOR LABS PPI GI CONSULT Code(s): K92.2 - GASTROINTESTINAL HEMORRHAGE, UNSPECIFIED (3) Dyspnea Assessment/Plan: MAYBE DUE TO ANEMIA ECHO CARDIO Code(s): R06.00 - DYSPNEA, UNSPECIFIED (4) Diabetes Assessment/Plan: [facility] ENDO Code(s): E11.9 - TYPE 2 DIABETES MELLITUS WITHOUT COMPLICATIONS
[2016-12-20] MEDS ORDERED: SODIUM CHLORIDE 100 ML IVPB ONE ×2 (09:46→20:52)
[2016-12-20] MEDS ORDERED: PANTOPRAZOLE SODIUM 40 MG VIAL ONE ×2 (09:46→20:51)
[2016-12-20] MEDS: PANTOPRAZOLE SODIUM 40 MG in SODIUM CHLORIDE 100 ML IVPB SCH ×2 (09:50→22:02)
--- NOTE | 2016-12-20 12:41 | PN ---
Progress Note (short form) - Note Progress Note: PULMONARY SUBJECTIVE IMPROVEMENT POST PRBC'S VSS/AFEBRILE ANICTERIC DISTANT BUT CLEAR S1S2 BS+ OBESE LESS EDEMA B/L LOWER EXT LABS/MEDS/NOTES/IMAGING/MICRO/ECHO REVIEWED s (1) Anemia Assessment/Plan: Code(s): D64.9 - ANEMIA, UNSPECIFIED (2) GI (gastrointestinal bleed) Assessment/Plan: Code(s): K92.2 - GASTROINTESTINAL HEMORRHAGE, UNSPECIFIED (3) Dyspnea Assessment/Plan: Code(s): R06.00 - DYSPNEA, UNSPECIFIED (4) Diabetes Assessment/Plan: Code(s): E11.9 - TYPE 2 DIABETES MELLITUS WITHOUT COMPLICATIONS DYSPNEA LIKELY SECONDARY TO SEVERE ANEMIA,? CARDIAC COUGH ? OBSTRUCTIVE AIRWAY DISEASE,? GERD LIKELY OSAS MORBID OBESITY HYPOTHYROIDISM PLAN: O2 as needed BD TX PRN PFTs outpatient Need Sleep workup after discharge GI workup ongoing awaiting official read on CT chest cea ordered Deven BADILLO MD
[2016-12-20] MEDS ORDERED: SODIUM PHOSPHATE/NA BIPHOS 133 ML ENEMA PR ONE (13:00)
--- NOTE | 2016-12-20 13:33 | CONSULT ---
Consult Consult Specialty:: hematology/oncology Referred by:: Reason for Consultation:: anemia - History of Present Illness History of Present Illness: Ms. Salazar is a 66 year old AA female hx of NIDDM, surgical hypothyroidism, morbid obesity, colon polyps admitted with cough and is being followed by hematology. On routine labs he was noted to have severe anemia. She does has a history of rectal bleeding which she claims to be secondary to bleeding hemorrhoids. She denies abdominal pain, and change in bowel habits.She mentioned that her living situation is "messed" up.She does not want to do the colonoscopy. - History Source History Provided By: Patient Limitations to Obtaining History: Other (poor historian) - Past Medical History Cardio/Vascular: Yes: Hyperlipdemia Pulmonary: Yes: COPD Endocrine: Yes: Diabetes Mellitus, Hypothyroidism - Alcohol/Substance Use Hx Alcohol Use: No - Smoking History Smoking history: Former smoker Have you smoked in the past 12 months: No Home Medications - Allergies Allergies/Adverse Reactions: Allergies Allergy/AdvReac Type Severity Reaction Status Date / Time No Known Allergies Allergy Verified 12/17/16 09:53 - Home Medications Home Medications: Ambulatory Orders Levothyroxine [Synthroid -] 100 mcg PO DAILY #30 tablet 12/23/14 Sitagliptin Phos/Metformin HCl [Janumet 50-500 mg Tablet] 1 each PO DAILY #30 tablet 12/23/14 Family Disease History - Family Disease History Family History: Denies Review of Systems - Review of Systems Constitutional: denies: Fever, Lethargy, Loss of Appetite, Unintentional Wgt. Loss Gastrointestinal: reports: Rectal Bleeding Breasts: reports: No Symptoms Reported Physical Exam Vital Signs: Vital Signs Temperature 98.4 F 12/20/16 09:00 Pulse Rate 87 12/20/16 09:00 Respiratory Rate 20 12/20/16 09:00 Blood Pressure 123/61 12/20/16 09:00 O2 Sat by Pulse Oximetry (%) 95 12/20/16 09:00 Constitutional: Yes: Obese Eyes: Yes: Conjunctiva Clear HENT: Yes: Atraumatic, Normocephalic Neck: Yes: Supple Cardiovascular: Yes: Regular Rate and Rhythm Respiratory: Yes: Cough, Poor Air Entry Gastrointestinal: Yes: Abdomen, Obese Labs: CBC, BMP 12/20/16 06:00 07/27/17 06:00 Imaging - Results Chest X-ray: Report Reviewed Cat Scan: Report Reviewed Problem List - Problems (1) Anemia Code(s): D64.9 - ANEMIA, UNSPECIFIED Qualifiers: Iron deficiency anemia type: other iron deficiency (2) GI (gastrointestinal bleed) Code(s): K92.2 - GASTROINTESTINAL HEMORRHAGE, UNSPECIFIED (3) Cough Code(s): R05 - COUGH (4) Diabetes Code(s): E11.9 - TYPE 2 DIABETES MELLITUS WITHOUT COMPLICATIONS (5) Obesity Code(s): E66.9 - OBESITY, UNSPECIFIED Qualifiers: Body mass index: BMI 40.0-44.9 (6) Leukocytosis Code(s): D72.829 - ELEVATED WHITE BLOOD CELL COUNT, UNSPECIFIED Assessment/Plan Severe microcytic anemia: -s.p PRBC transfusion -ordered anemia w/u -pending stool occult pending -GI consult noted -refusing colonoscopy -will order a CT a/p with contrast to r/o any mass (pelvis/colon/rectal?),if positive for any suspicious findings may persuade her for further w/u. She agree for a CT scan -for now, will follow the screening labs and CT scan. Leukocytosis: -present in 11/2014 -Likely obesity related than a clonal disorder Misc: -seems like a difficult ?living situation -Psych consult might help?
[2016-12-20] MEDS ORDERED: ALPRAZolam 0.25 MG TABLET PO PRN (16:46)
[2016-12-20] MEDS ORDERED: PANTOPRAZOLE 40 MG TABLET (FP) PO ONE (22:30)
[2016-12-20] MEDS ORDERED: ALPRAZolam 0.25 MG TABLET PO ONE (22:30)
[2016-12-21] MEDS: ALBUTEROL SO4 2.5/IPRATROPIUM 0.5 INH SOL 3 ML VIAL.NEB. NEB SCH ×4 (00:10→18:20)
[2016-12-21] MEDS: INSULIN SLIDING SCALE (NOVOLOG) 1 VIAL SQ SCH ×4 (06:14→22:00)
[2016-12-21] MEDS: sitaGLIPtin PHOSPHATE 50 MG TABLET PO SCH (06:15)
[2016-12-21] MEDS: LEVOTHYROXINE NA 100 MCG TABLET (FP) PO SCH (06:15)
--- NOTE | 2016-12-21 10:38 | PN ---
Progress Note, Physician - Current Medication List Current Medications: Active Medications Acetaminophen (Tylenol -) 650 mg PO Q4H PRN PRN Reason: FEVER OR PAIN Albuterol/Ipratropium (Duoneb -) 1 amp NEB QIDR [facility] Last Admin: 12/21/16 07:23 Dose: Not Given Alprazolam (Xanax -) 0.5 mg PO Q8H PRN Last Admin: 12/20/16 22:03 Dose: 0.5 mg Insulin Aspart (Novolog Vial Sliding Scale -) 1 vial SQ [facility] PRN Reason: Protocol Last Admin: 12/21/16 06:14 Dose: Not Given Levothyroxine Sodium (Synthroid -) 100 mcg PO DAILY@0700 [facility] Last Admin: 12/21/16 06:15 Dose: 100 mcg Sitagliptin Phosphate (Januvia -) 50 mg PO DAILY@0700 [facility] Last Admin: 12/21/16 06:15 Dose: 50 mg - Objective Vital Signs: Vital Signs Temperature 98.1 F 12/21/16 05:48 Pulse Rate 86 12/21/16 05:48 Respiratory Rate 20 12/21/16 05:48 Blood Pressure 148/60 12/21/16 05:48 O2 Sat by Pulse Oximetry (%) 95 12/20/16 21:00 Labs: CBC, BMP 12/20/16 06:00 12/19/16 06:00
--- NOTE | 2016-12-21 14:33 | PN ---
Progress Note, Physician Chief Complaint: THIS IS MY FIRST ENCOUNTER WITH THIS PATIENT EVENTS AND NOTES REVIEWED PATIENT AWAKE STATES SHE FEELS BETTER NAD - Current Medication List Current Medications: Active Medications Acetaminophen (Tylenol -) 650 mg PO Q4H PRN PRN Reason: FEVER OR PAIN Albuterol/Ipratropium (Duoneb -) 1 amp NEB QIDR [facility] Last Admin: 12/21/16 11:19 Dose: 1 amp Alprazolam (Xanax -) 0.5 mg PO Q8H PRN Last Admin: 12/20/16 22:03 Dose: 0.5 mg Insulin Aspart (Novolog Vial Sliding Scale -) 1 vial SQ ACHS [facility] PRN Reason: Protocol Last Admin: 12/21/16 12:26 Dose: Not Given Levothyroxine Sodium (Synthroid -) 100 mcg PO DAILY@0700 [facility] Last Admin: 12/21/16 06:15 Dose: 100 mcg Sitagliptin Phosphate (Januvia -) 50 mg PO DAILY@0700 [facility] Last Admin: 12/21/16 06:15 Dose: 50 mg - Objective Vital Signs: Vital Signs Temperature 99.1 F 12/21/16 14:26 Pulse Rate 99 H 12/21/16 14:26 Respiratory Rate 20 12/21/16 14:26 Blood Pressure 146/77 12/21/16 14:26 O2 Sat by Pulse Oximetry (%) 95 12/20/16 21:00 Constitutional: Yes: No Distress Eyes: Yes: WNL HENT: Yes: WNL Neck: Yes: WNL Cardiovascular: Yes: WNL Respiratory: Yes: WNL Gastrointestinal: Yes: WNL Genitourinary: Yes: WNL Musculoskeletal: Yes: WNL Extremities: Yes: WNL Peripheral Pulses WNL: Yes Integumentary: Yes: WNL Wound/Incision: Yes: Clean/Dry Neurological: Yes: WNL ...Motor Strength: WNL Psychiatric: Yes: Other Labs: CBC, BMP 12/20/16 06:00 12/19/16 06:00 Problem List - Problems (1) Anemia Code(s): D64.9 - ANEMIA, UNSPECIFIED Qualifiers: Iron deficiency anemia type: other iron deficiency (2) Diabetes Code(s): E11.9 - TYPE 2 DIABETES MELLITUS WITHOUT COMPLICATIONS (3) GI (gastrointestinal bleed) Code(s): K92.2 - GASTROINTESTINAL HEMORRHAGE, UNSPECIFIED (4) Microcytic anemia Code(s): D50.9 - IRON DEFICIENCY ANEMIA, UNSPECIFIED (5) Obesity Code(s): E66.9 - OBESITY, UNSPECIFIED Qualifiers: Body mass index: BMI 40.0-44.9 Assessment/Plan TRANSFUSE PRBC NEEDED LABS REVIEWED ONCOLOGY/GI WORKUP PATIENT REFUSING COLONOSCOPY MONITOR LEVELS
[2016-12-22] MEDS: ALBUTEROL SO4 2.5/IPRATROPIUM 0.5 INH SOL 3 ML VIAL.NEB. NEB SCH ×2 (00:06→07:30)
--- NOTE | 2016-12-22 00:12 | PN ---
Progress Note, Physician Chief Complaint: denies dyspnea or chest pain/eating well History of Present Illness: 64y hx of DM (non-insulin dependent) and Hypothyroidism presenting with multiple complaints but most prominently a dry cough for the past 1-2 months. She has had a dry cough for the past 1-2 months. She also admits to more consistent lower extremity edema with some orthopnea and increased PARTIDA. Admits to occasional nausea,weakness and difficulty catching her breath,with slight walking - Current Medication List Current Medications: Active Medications Acetaminophen (Tylenol -) 650 mg PO Q4H PRN PRN Reason: FEVER OR PAIN Albuterol/Ipratropium (Duoneb -) 1 amp NEB QIDR [facility] Last Admin: 12/22/16 00:06 Dose: Not Given Alprazolam (Xanax -) 0.5 mg PO Q8H PRN Last Admin: 12/20/16 22:03 Dose: 0.5 mg Insulin Aspart (Novolog Vial Sliding Scale -) 1 vial SQ ACHS [facility] PRN Reason: Protocol Last Admin: 12/21/16 17:39 Dose: Not Given Levothyroxine Sodium (Synthroid -) 100 mcg PO DAILY@0700 [facility] Last Admin: 12/21/16 06:15 Dose: 100 mcg Sitagliptin Phosphate (Januvia -) 50 mg PO DAILY@0700 [facility] Last Admin: 12/21/16 06:15 Dose: 50 mg - Objective Vital Signs: Vital Signs Temperature 99.3 F 12/21/16 17:30 Pulse Rate 87 12/21/16 17:30 Respiratory Rate 18 12/21/16 17:30 Blood Pressure 132/64 12/21/16 17:30 O2 Sat by Pulse Oximetry (%) 95 12/20/16 21:00 Constitutional: Yes: Calm Eyes: Yes: EOM Intact HENT: Yes: Normocephalic Neck: Yes: Trachea Midline Cardiovascular: Yes: Regular Rate and Rhythm Respiratory: Yes: CTA Bilaterally Gastrointestinal: Yes: Normal Bowel Sounds ...Rectal Exam: Yes: Deferred Genitourinary: Yes: WNL Breast(s): Yes: WNL Musculoskeletal: Yes: WNL Extremities: Yes: WNL Edema: No Peripheral Pulses WNL: Yes Integumentary: Yes: WNL Neurological: Yes: Alert, Oriented Labs: CBC, BMP 12/20/16 06:00 12/19/16 06:00 Problem List - Problems (1) Anemia Code(s): D64.9 - ANEMIA, UNSPECIFIED Qualifiers: Iron deficiency anemia type: other iron deficiency (2) Cough Code(s): R05 - COUGH (3) Diabetes Code(s): E11.9 - TYPE 2 DIABETES MELLITUS WITHOUT COMPLICATIONS (4) Dyspnea Code(s): R06.00 - DYSPNEA, UNSPECIFIED (5) Rectal bleeding Code(s): K62.5 - HEMORRHAGE OF ANUS AND RECTUM Assessment/Plan Current Active Problems Anemia (Acute) Cough (Acute) Diabetes (Acute) Dyspnea (Acute) GI (gastrointestinal bleed) (Acute) Microcytic anemia (Acute) Obesity (Acute) Rectal bleeding (Acute) Abnormal Lab Results 12/17/16 12/17/16 11:34 12:08 Crossmatch See Detail See Detail Laboratory Results - last 24 hr 12/17/16 12/17/16 12/20/16 11:34 12:08 08:30 POC Glucometer Carcinoembryonic Ag 1.0 Blood Type AB NEGATIVE AB NEGATIVE Antibody Screen Negative Crossmatch See Detail See Detail 12/21/16 06:13 POC Glucometer 150 Carcinoembryonic Ag Blood Type Antibody Screen Crossmatch Laboratory Tests 12/20/16 12/20/16 12/20/16 06:00 06:11 12:32 WBC 12.6 H RBC 4.71 Hgb 9.0 L Hct 30.8 L MCV 65.5 L MCH 19.1 L MCHC 29.2 L RDW 31.6 H POC Glucometer 123 98 12/20/16 12/20/16 12/21/16 17:14 21:56 06:13 WBC RBC Hgb Hct MCV MCH MCHC RDW POC Glucometer 109 141 150 plan: continue bgm qid awaiting ct abdomen januvia 50mg daily synthroid 100mcg daily
--- NOTE | 2016-12-22 09:31 | DS ---
Physical Examination Vital Signs: Vital Signs Temperature 99.3 F 12/21/16 17:30 Pulse Rate 87 12/21/16 17:30 Respiratory Rate 18 12/21/16 21:00 Blood Pressure 132/64 12/21/16 17:30 O2 Sat by Pulse Oximetry (%) 95 12/20/16 21:00 Findings/Remarks: PATIENT REFUSING LABS/COLONOSCOPY OR ANY WORKUP Constitutional: Yes: No Distress Eyes: Yes: WNL HENT: Yes: WNL Neck: Yes: WNL Cardiovascular: Yes: WNL Respiratory: Yes: WNL Gastrointestinal: Yes: WNL Musculoskeletal: Yes: WNL Extremities: Yes: WNL Edema: No Peripheral Pulses WNL: Yes Integumentary: Yes: WNL Wound/Incision: Yes: Clean/Dry Neurological: Yes: WNL ...Motor Strength: WNL Psychiatric: Yes: Agitated Labs: CBC, BMP 12/20/16 06:00 12/19/16 06:00 Discharge Summary Reason For Visit: MICROCYTIC ANEMIA Current Active Problems Anemia (Acute) Cough (Acute) Diabetes (Acute) Dyspnea (Acute) GI (gastrointestinal bleed) (Acute) Microcytic anemia (Acute) Obesity (Acute) Rectal bleeding (Acute) Procedures: Principal: LABS Other Procedures: CT SCANS/XRAYS Hospital Course: PATIENT FOUND TO BE ANEMIC REQUIRING WORKUP AND TRANSFUSION, PATIENT HAS DECLINED COLONOSCOPY AND LABS OULD LIKE TO CONTINUE WORKUP OUTPATIENT. I HAVE MADE HER AN APPOINTMENT TO SEE HER PMD TOMORROW MORNING AND TO CONTACT ME IF SHE HAS ANY QUESTIONS AT [phone], I ALSO EXPLAINED IF SHE FEELS ANY DISTRESS/PAIN/SX TO CALL 911 AND RETURN TO HOSPITAL. Condition: Fair - Instructions Diet, Activity, Other Instructions: SEE YOUR DOCTOR TOMORROW MORNING AT 930AM TOLERATED SOFT DIABETIC Referrals: Justin Laboy MD [Primary Care Provider] - Disposition: VNS/HOME HEALTH CARE - Home Medications Comprehensive Discharge Medication List: Ambulatory Orders Levothyroxine [Synthroid -] 100 mcg PO DAILY #30 tablet 12/23/14 Sitagliptin Phos/Metformin HCl [Janumet 50-500 mg Tablet] 1 each PO DAILY #30 tablet 12/23/14
[2016-12-22] MEDS: LEVOTHYROXINE NA 100 MCG TABLET (FP) PO SCH (09:58)
--- NOTE | 2016-12-22 10:52 | PN ---
Progress Note (short form) - Note Progress Note: PULMONARY VSS/ ANICTERIC DISTANT BUT CLEAR S1S2 BS+ OBESE LESS EDEMA B/L LOWER EXT LABS/MEDS/NOTES/IMAGING/MICRO/ECHO REVIEWED CT CHEST REVIEWED (1) Anemia Assessment/Plan: Code(s): D64.9 - ANEMIA, UNSPECIFIED (2) GI (gastrointestinal bleed) Assessment/Plan: Code(s): K92.2 - GASTROINTESTINAL HEMORRHAGE, UNSPECIFIED (3) Dyspnea Assessment/Plan: Code(s): R06.00 - DYSPNEA, UNSPECIFIED (4) Diabetes Assessment/Plan: Code(s): E11.9 - TYPE 2 DIABETES MELLITUS WITHOUT COMPLICATIONS DYSPNEA LIKELY SECONDARY TO SEVERE ANEMIA NOW RESOLVED COUGH ? OBSTRUCTIVE AIRWAY DISEASE,? GERD LIKELY OSAS MORBID OBESITY HYPOTHYROIDISM PLAN: O2 as needed BD TX PRN PFTs outpatient Need Sleep workup after discharge Deven BADILLO MD
[2016-12-22] MEDS: INSULIN SLIDING SCALE (NOVOLOG) 1 VIAL SQ SCH (12:59)
[2016-12-22] MEDS: sitaGLIPtin PHOSPHATE 50 MG TABLET PO SCH (13:02)
[2016-12-22 13:57] VITALS: BP 134/88; PULSE 85; TEMP 98.4
== END 2016-12-22 15:50 | disposition home health service (06) | DRG 812 ==
LOC: JER 09:46 → JERBED 13:03 → J7W 16:18
PROVIDERS: ADMIT Family Medicine; ATTEND Family Medicine
PROC: 30233N1 Transfusion of Nonautologous Red Blood Cells into Peripheral Vein, Percutaneous Approach (ICD-10-PCS; principal; 2016-12-19)
DX: D50.9 Iron deficiency anemia, unspecified (principal); Z68.41 Body mass index [BMI] 40.0-44.9, adult; K92.2 Gastrointestinal hemorrhage, unspecified; E11.9 Type 2 diabetes mellitus without complications; E03.9 Hypothyroidism, unspecified; Z79.84 Long term (current) use of oral hypoglycemic drugs; Z87.891 Personal history of nicotine dependence; E66.01 Morbid (severe) obesity due to excess calories; G47.33 Obstructive sleep apnea (adult) (pediatric); R05 Cough; D72.829 Elevated white blood cell count, unspecified; K21.9 Gastro-esophageal reflux disease without esophagitis
CPT/HCPCS: 36415; 36430; 71010-TC; 71250-TC; 80048; 80053; 81003; 82272; 82378; 82550; 82728; 83036; 83540; 83550; 83880; 84439; 84443; 84484; 85025; 86850; 86900; 86901; 86922; 93005; 93010; 93306-TC; 94640; 97116-GP; 97161-GP; 99284-25; P9038; P9058

== ENCOUNTER 2017-05-15 12:18 | Emergency (ER) | payer OTHER ==
[2017-05-15 12:44] VITALS: BP 131/69; PULSE 92; TEMP 97.8; BMI 43.0
--- NOTE | 2017-05-15 13:13 | PDOC ---
History of Present Illness - General Chief Complaint: Urinary Problem Stated Complaint: URINARY PROBLEM Time Seen by Provider: 05/15/17 12:54 History Source: Patient Exam Limitations: No Limitations - History of Present Illness Initial Comments: 05/15/17 13:10 c/o frequent urination for 2 weeks. Denies burning sensation, denies abd pain, back pain fever or vomiting. Pt states history of UTI in the past. Past History - Past Medical History Allergies/Adverse Reactions: Allergies Allergy/AdvReac Type Severity Reaction Status Date / Time No Known Allergies Allergy Verified 05/15/17 12:40 Home Medications: Ambulatory Orders Levothyroxine [Synthroid -] 100 mcg PO DAILY #30 tablet 12/23/14 Sitagliptin Phos/Metformin HCl [Janumet 50-500 mg Tablet] 1 each PO DAILY #30 tablet 12/23/14 Acetaminophen [Tylenol .Regular Strength -] 650 mg PO Q4H PRN #0 tablet Levothyroxine [Synthroid -] 100 mcg PO DAILY@0700 tablet 12/22/16 Cephalexin [Keflex] 500 mg PO BID #14 capsule 05/15/17 CVA: No COPD: No DVT: No Diabetes: Yes Thyroid Disease: Yes - Surgical History Abdominal Surgery: Yes (D&C) - Immunization History Immunization Up to Date: Yes - Suicide/Smoking/Psychosocial Hx Smoking History: Never smoked Have you smoked in the past 12 months: No Information on smoking cessation initiated: No Hx Alcohol Use: No Drug/Substance Use Hx: No Substance Use Type: None Hx Substance Use Treatment: No Review of Systems - Review of Systems Able to Perform ROS?: Yes Is the patient limited Yi proficient: No Constitutional: No: Symptoms Reported HEENTM: No: Symptoms Reported Respiratory: No: Symptoms reported Cardiac (ROS): No: Symptoms Reported ABD/GI: No: Symptoms Reported : Yes: Symptoms Reported *Physical Exam - Vital Signs Last Vital Signs Temp Pulse Resp BP Pulse Ox 97.8 F 92 H 16 131/69 97 05/15/17 12:40 05/15/17 12:40 05/15/17 12:40 05/15/17 12:40 05/15/17 12:40 - Physical Exam General Appearance: Yes: Nourished, Appropriately Dressed HEENT: positive: EOMI, VALENTINE, Normal ENT Inspection, TMs Normal, Pharynx Normal Neck: positive: Supple. negative: Tender Respiratory/Chest: positive: Lungs Clear, Normal Breath Sounds. negative: Chest Tender Cardiovascular: positive: Regular Rhythm, Regular Rate Gastrointestinal/Abdominal: positive: Normal Bowel Sounds, Soft Musculoskeletal: positive: Normal Inspection Extremity: positive: Normal Capillary Refill, Normal Inspection, Normal Range of Motion Integumentary: positive: Normal Color, Dry, Warm Neurologic: positive: general internist and physician leader II-XII NML intact, Fully Oriented, Alert, Normal Mood/ Affect Medical Decision Making - Medical Decision Making 05/15/17 13:11 cc: frequent urination denies fever no abd pain or back pain will check UA pt refused blood draw to check kidney functions case discussed with the [employer] CAPTAIN in 's office who is covering for Pt's PMD. she will see pt tomorrow at 115pm to follow up and go over the urine test. pt agrees with the plan of care, the address ad phone number has been given. pt understands to follow up with the provider tomorrow. pt understands that the hematuria in her urine may be infectious or it may be a symptoms of other etiologies. 05/15/17 19:55 05/15/17 20:01 *DC/Admit/Observation/Transfer Diagnosis at time of Disposition: Increased urinary frequency Hematuria Qualifiers: Hematuria type: unspecified type Qualified Code(s): R31.9 - Hematuria, unspecified - Discharge Dispostion Disposition: HOME Condition at time of disposition: Good - Prescriptions Prescriptions: Cephalexin [Keflex] 500 mg PO BID #14 capsule - Referrals Referrals: Justin Laboy MD [Primary Care Provider] - - Patient Instructions Additional Instructions: please follow with your primary care doctor tomorrow or next week for follow up you have blood in the urine this can be infection , however it must be followed up because it can be a symptom of other disease take the antibiotics as directed for 7 days [address] [facility] [address] at 1:15pm you have an appointment with the nurse practitioner covering for your doctor. 's office to see the nurse practitioner - Post Discharge Activity
[2017-05-15 14:08] LABS: URINE APPEARANCE SLCLOUDY; URINE BILIRUBIN NEGATIVE (NEGATIVE); URINE BLOOD 1+ (NEGATIVE); URINE COLOR YELLOW; URINE GLUCOSE (UA) NEGATIVE (NEGATIVE); URINE KETONE NEGATIVE (NEGATIVE); URINE LEUK ESTERASE NEGATIVE (NEGATIVE); URINE NITRITE NEGATIVE (NEGATIVE); URINE PROTEIN NEGATIVE (NEGATIVE); URINE UROBILINOGEN NEGATIVE mg/dL (0.2-1.0)
[2017-05-15 14:53] LABS: URINE BACTERIA RARE /hpf (NONE SEEN); URINE MUCUS FEW; URINE WBC 7 /hpf (3-5)
[2017-05-15 18:39] LABS: URINE LEUK ESTERASE Negative (NEGATIVE)
== END 2017-05-15 15:03 | disposition home or self-care (01) ==
LOC: JERFT 12:18
DX: R35.0 Frequency of micturition (principal)
CPT/HCPCS: 81003; 81015; 99281-25

== ENCOUNTER 2019-07-22 16:35 | Inpatient (IN) | payer OTHER ==
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
[2019-07-22 18:06] LABS: BASO % 0.6 % (0-2.0); EOS % 2.2 % (0-4.5); HEMATOCRIT 39.8 % (32.4-45.2); HEMOGLOBIN 12.3 GM/dL (10.7-15.3); LYMPH % 19.9 % (8-40); MCH 22.6 pg (25.7-33.7); MCHC 30.9 g/dl (32.0-36.0); MEAN PLT VOLUME 8.8 fl (7.5-11.1); MONO % 9.6 % (3.8-10.2); NEUT % 67.7 % (42.8-82.8); PLATELET COUNT 266 K/MM3 (134-434); RBC 5.45 M/mm3 (3.60-5.2); RDW 22.5 % (11.6-15.6); WHITE BLOOD COUNT 12.1 K/mm3 (4.0-10.0)
[2019-07-22 18:16] LABS: INR 1.08 (0.83-1.09); PROTHROMBIN TIME (PATIENT) 12.7 SEC (9.7-13.0)
[2019-07-22 18:22] LABS: ALBUMIN 3.4 g/dl (3.4-5.0); ALK PHOS 75 U/L (45-117); ANION GAP 4 MMOL/L (8-16); BILIRUBIN,TOTAL 0.2 mg/dL (0.2-1); CALCIUM 9.5 mg/dL (8.5-10.1); CHLORIDE 106 mmol/L (98-107); CO2 30 mmol/L (21-32); CREATININE 0.8 mg/dL (0.55-1.3); GLUCOSE,RANDOM 91 mg/dL (74-106); MAGNESIUM 2.4 mg/dL (1.8-2.4); PHOSPHOROUS 3.5 mg/dL (2.5-4.9); POTASSIUM 3.6 mmol/L (3.5-5.1); SGOT/AST 15 U/L (15-37); SGPT/ALT 18 U/L (13-61); SODIUM 140 mmol/L (136-145); TOT PROT 7.1 g/dl (6.4-8.2)
[2019-07-22 18:29] LABS: EPI CELLS 23.7 /HPF (0-5/HPF); HYALINE CASTS 4 /lpf (0-8); PH,URINE 5.5 (5.0-8.0); URINE APPEARANCE CLOUDY; URINE BACTERIA 298.2 /hpf (NEGATIVE); URINE BILIRUBIN NEGATIVE (NEGATIVE); URINE COLOR YELLOW; URINE GLUCOSE (UA) NEGATIVE (NEGATIVE); URINE KETONE NEGATIVE (NEGATIVE); URINE LEUK ESTERASE NEGATIVE (NEGATIVE); URINE NITRITE NEGATIVE (NEGATIVE); URINE PROTEIN NEGATIVE (NEGATIVE); URINE UROBILINOGEN 0.2 mg/dL (0.2-1.0); URINE WBC 6 /hpf (0-5)
[2019-07-22 19:58] LABS: URINE RBC 6.1 /hpf (0-4)
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
[2019-07-22 20:54] LABS: ANISOCYTOSIS 2+; PLATELET ESTIMATE ADEQUATE
[2019-07-23] MEDS ORDERED: ACETAMINOPHEN 1000 MG/100 ML VIAL (NON FORMULARY) IVPB ONE (02:23)
[2019-07-23] MEDS ORDERED: ACETAMINOPHEN INJECTION 100 ML IVPB ONE (02:38)
[2019-07-23 05:44] LABS: URINE APPEARANCE Clear; URINE BILIRUBIN Negative (NEGATIVE); URINE COLOR Yellow; URINE GLUCOSE (UA) Negative (NEGATIVE); URINE KETONE Negative (NEGATIVE); URINE LEUK ESTERASE Negative (NEGATIVE); URINE NITRITE Negative (NEGATIVE); URINE PROTEIN Negative (NEGATIVE); URINE UROBILINOGEN 0.2 mg/dL (0.2-1.0)
[2019-07-23] MEDS ORDERED: LEVOTHYROXINE NA 25 MCG TABLET (FP) ONE (06:32)
[2019-07-23] MEDS: INSULIN SLIDING SCALE (NOVOLOG) 1 VIAL SQ SCH ×2 (06:32→17:44)
[2019-07-23] MEDS: LEVOTHYROXINE NA 100 MCG TABLET (FP) PO SCH (06:36)
[2019-07-23 06:40] LABS: HEMATOCRIT 38.3 % (32.4-45.2); MCH 22.7 pg (25.7-33.7); MCHC 31.2 g/dl (32.0-36.0); MEAN CELL VOLUME 72.8 fl (80-96); MEAN PLT VOLUME 8.5 fl (7.5-11.1); PLATELET COUNT 256 K/MM3 (134-434); RBC 5.27 M/mm3 (3.60-5.2); RDW 23.2 % (11.6-15.6); WHITE BLOOD COUNT 11.6 K/mm3 (4.0-10.0)
[2019-07-23 06:45] LABS: BLOOD UREA NITROGEN 16.5 mg/dL (7-18); CALCIUM 9.4 mg/dL (8.5-10.1); CREATININE 0.7 mg/dL (0.55-1.3); POTASSIUM 4.5 mmol/L (3.5-5.1)
--- NOTE | 2019-07-23 08:56 | PN ---
Progress Note, Physician History of Present Illness: 69 year old female with past medical history of NIDDM (on meds) and hypothyroidism who presented with stuttered speech (unclear of duration as patient is a poor historian) and blurry vision for 2 months. - Current Medication List Current Medications: Active Medications Enoxaparin Sodium (Lovenox -) 40 mg SQ DAILY YOSELYN Insulin Aspart (Novolog Vial Sliding Scale -) 1 vial SQ BIDAC [facility]; Protocol Last Admin: 07/23/19 06:32 Dose: Not Given Levothyroxine Sodium (Synthroid -) 100 mcg PO DAILY@0700 [facility] Last Admin: 07/23/19 06:36 Dose: 100 mcg - Objective Vital Signs: Vital Signs Temperature 97.9 F 07/23/19 08:52 Pulse Rate 72 07/23/19 08:52 Respiratory Rate 18 07/23/19 08:52 Blood Pressure 128/62 07/23/19 08:52 O2 Sat by Pulse Oximetry (%) 97 07/23/19 08:49 Cardiovascular: Yes: S1, S2 Respiratory: Yes: Regular, CTA Bilaterally Gastrointestinal: Yes: Normal Bowel Sounds, Soft Neurological: Yes: Alert, Oriented, Weakness. No: Confusion, Facial Droop Labs: CBC, BMP 07/23/19 05:45 07/23/19 05:45 INR, PTT INR 1.08 (0.83-1.09) 07/22/19 17:35 Problem List - Problems (1) Blurry vision Assessment/Plan: CT scan of head with no acute findings MRI head Neuro check q4hr Neurology- Dr. Shelton consulted Code(s): H53.8 - OTHER VISUAL DISTURBANCES (2) Diabetes Assessment/Plan: hgba1c 5.7 BGM before meals and at bedtime Novolog insulin as per sliding scale Code(s): E11.9 - TYPE 2 DIABETES MELLITUS WITHOUT COMPLICATIONS (3) Leukocytosis Assessment/Plan: afebrile, UA cloudy w/ epithelial cells, trace blood, ?contaminant, urine culture pending Repeat UA with straight cath ID consulted - Dr. Zamudio Code(s): D72.829 - ELEVATED WHITE BLOOD CELL COUNT, UNSPECIFIED
[2019-07-23] MEDS: ENOXAPARIN NA (PORCINE) 40 MG/0.4 ML DISP.SYRIN SQ SCH (10:40)
--- NOTE | 2019-07-23 12:46 | EKG ---
Test Reason : Blood Pressure : / mmHG Vent. Rate : 075 BPM Atrial Rate : 075 BPM P-R Int : 198 ms QRS Dur : 060 ms QT Int : 376 ms P-R-T Axes : 043 -14 044 degrees QTc Int : 419 ms NORMAL SINUS RHYTHM INFERIOR INFARCT (CITED ON OR BEFORE 22-JUL-2019) POSSIBLE ANTERIOR INFARCT (CITED ON OR BEFORE 22-JUL-2019) ABNORMAL ECG Confirmed by ARASH ARCOS MD ([id number]) on 07/23/2019 12:46:15 PM Referred By: Confirmed By:ARASH ARCOS MD
--- NOTE | 2019-07-23 12:47 | EKG ---
Test Reason : Blood Pressure : / mmHG Vent. Rate : 076 BPM Atrial Rate : 076 BPM P-R Int : 168 ms QRS Dur : 084 ms QT Int : 380 ms P-R-T Axes : 043 -29 031 degrees QTc Int : 427 ms NORMAL SINUS RHYTHM INFERIOR INFARCT , AGE UNDETERMINED CANNOT RULE OUT ANTERIOR INFARCT , AGE UNDETERMINED ABNORMAL ECG Confirmed by ARASH ARCOS MD ([id number]) on 07/23/2019 12:47:04 PM Referred By: Confirmed By:ARASH ARCOS MD
--- NOTE | 2019-07-23 13:40 | CONS ---
PHYSICAL MEDICINE REHABILITATION CONSULTATION DATE OF CONSULTATION: 07/23/2019 REFERRING PHYSICIAN: Omar Shah MD HISTORY OF PRESENT ILLNESS: The patient is a 69-year-old woman with past medical history of thyroid disorder as well as [id number] diabetes who developed blurry vision. She states she had thyroid surgery several years ago but developed blurry vision over the last 2 months. She may have suffered some head trauma recently. She did undergo an MRI of the brain, which showed a recent infarct in the right middle frontal gyrus subcortical matter with increased signal intensity. CT of her head showed no acute intracranial pathology. Chest x-ray showed no active chest pathology. On admitting blood work, her WBCs were elevated at 12.1, hemoglobin 12.3, platelet count 266. Sodium 140, potassium 3.6, chloride 106, CO2 was 30, BUN 16, creatinine 0.8. TSH normal 0.76. Albumin at 3.4. Troponin less than 0.02. Patient herself is not a very good historian. She is somewhat confused and is seen lying on a stretcher. PAST MEDICAL HISTORY: As above. Patient also notes chronic knee pain from underlying bilateral knee osteoarthritis. PAST SURGICAL HISTORY: As above. SOCIAL HISTORY: Uncertain. She denies any tobacco but states that she is semi-homeless at this point. Premorbidly, she had difficulty with her mobility ambulating with an assistive device due to underlying knee osteoarthritis. Review of current function unknown but she states she was able to drive herself to the emergency room. Again, it is uncertain if this is accurate. REVIEW OF SYSTEMS: She denies any current lightheadedness. She may have been lightheaded when she came in. No dizziness currently. She does get some blurry vision at times. No double vision. No nausea, vomiting, difficulty swallowing, difficulty chewing. No chest pain, shortness of breath, dyspnea on exertion, cough, or abdominal discomfort. No bowel or bladder incontinence or retention. She does state she has frequent urination. She has bilateral knee pain and possibly some paresthesias with tingling in the distal lower extremities. No other noted joint arthralgias. No weight loss or weight gain. No fever or chills. PHYSICAL EXAMINATION: General: An overweight woman seen lying on a stretcher. Again, she is not a great historian. Is somewhat confused, but she is awake, alert, and oriented x3. She knows the exact date and is oriented to place. HEENT: She is normocephalic and atraumatic. Her extraocular muscles appear intact. She has no obvious facial weakness. No oral ulcers. Neck: Supple. Extremities: Without any pitting edema or calf tenderness. Neuromuscular: She is awake, alert, oriented x3. Cranial nerves 2-12 appear grossly intact. Her speech is fluent. She has fairly good strength in her upper extremities, at least 4/5 proximal and 5/5 distal strength with normal sensation to pinprick and symmetric reflexes in the lower extremities. Patient has medial joint line tenderness and crepitus in both knees. No large joint effusion. Antigravity hip girdle and knee extensor strength. Better dorsiflexion, plantar flexion strength but slightly diminished sensation distally to pinprick and absent ankle jerk reflex. Toes are neither upgoing nor downgoing. OVERALL IMPRESSION: 1. Deficits in mobility, activities of daily living, multifactorial. 2. Possible subacute cerebrovascular accident involving her right, middle, frontal gyrus subcortical matter without any obvious deficit. 3. Bilateral knee osteoarthritis by history. 4. History of type 2 diabetes with probable underlying diabetic polyneuropathy. 5. Mild confusion. 6. History of thyroid surgery and hypothyroidism, currently euthyroid. 7. Increased body mass index. 8. Status post leukocytosis. 9. Borderline albumin. 10. Elevated risk for deep vein thrombosis due to immobility. PLAN AND SUGGESTION: 1. When stabilized, physical therapy to include mobilization, bed mobility, transfers, gait training, strengthening, reconditioning. 2. When appropriate and cleared medically, out of bed to chair. 3. Neurologic assessment. 4. Skin precautions. 5. Patient is on Lovenox. Would continue for DVT prophylaxis. 6. Disposition may depend on her ability to ambulate, possible home, if she has a home, with home care versus short-term rehabilitation in a intermediate facility. Thank you for this referral. KYLAH JUAREZ M.D. [id number]
[2019-07-23 13:50] VITALS: BMI 40.4
--- NOTE | 2019-07-23 14:36 | PN ---
Progress Note (short form) - Note Progress Note: ID consult dictated imp/reccd chronic dizziness, chronic blurry vision- last several months poor memory follwed by dr bravo no fevers or chills no weight loss MRI- ?small infarct leukocytosis no signs active infection, no need for further evaluation possible cva management per neurology please call back if needed Problem List - Problems (1) Leukocytosis Code(s): D72.829 - ELEVATED WHITE BLOOD CELL COUNT, UNSPECIFIED (2) Blurry vision Code(s): H53.8 - OTHER VISUAL DISTURBANCES (3) Dizziness Code(s): R42 - DIZZINESS AND GIDDINESS
--- NOTE | 2019-07-23 15:42 | CONS ---
INFECTIOUS DISEASE CONSULTATION DATE OF CONSULTATION: DATE OF DICTATION: 07/23/2019 REQUESTED BY: Omar Shah MD HISTORY OF PRESENT ILLNESS: This is a 69-year-old woman who was admitted from the community. It is unclear exactly where she is living. She apparently presents with chronic dizziness and blurry eyes, which she has had for the last several months. She is a poor historian. She reports she has a very poor memory. She denies any fevers or chills. She is followed by Dr. Laboy in the community. She has had no nausea, vomiting, no dysuria or cough. She is resting comfortably in bed. PAST MEDICAL HISTORY: Notable for diabetes and hypothyroidism. SURGICAL HISTORY: [facility] SOCIAL HISTORY: She is a former smoker. She stopped when the colón of cigarettes became too much. No alcohol or substance use. ALLERGIES: She has no known allergies. MEDICATIONS: She takes Synthroid and Januvia. REVIEW OF SYSTEMS: There has been no weight loss. She has had no nausea, vomiting or diarrhea. Her symptoms are primarily dizziness and blurry eyes. PHYSICAL EXAMINATION: General: She is lying in bed. She has a chronic stutter. Vital Signs: Her temperature is 98, pulse of 66, blood pressure 112/55, respiratory rate is 20. She weighs 93 kg. HEENT: She is normocephalic. Her eyes are anicteric. She has no thrush. Neck: Supple. Lungs: Clear to auscultation. Heart: Regular rate and rhythm. Abdomen: Soft. Nontender. Extremities: Without edema. LABORATORY DATA: White count on admission was 12, today it is 11.6, hemoglobin is 12, platelets are 256. Her INR is normal. Hemoglobin A1c is 5.7 with a glucose of 113 today. Normal LFTs. Normal TSH. Negative urinalysis with negative leukocytes. Chest x-ray is notable for no acute chest pathology, clear lungs. Brain MRI raises a question of a very small infarct. In summary, this is a 69-year-old woman admitted with chronic dizziness and blurry vision who has maybe had a recent small infarct. Awaiting evaluation by Neurology. She has no signs of infection, so would not treat her at this time with any antibiotics. Please call back if needed. SERA CROWE M.D. [id number]
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
[2019-07-23] MEDS: TOPIRAMATE 25 MG TABLET (FP) PO SCH (22:17)
[2019-07-24] MEDS: INSULIN SLIDING SCALE (NOVOLOG) 1 VIAL SQ SCH ×2 (06:25→16:55)
[2019-07-24] MEDS: LEVOTHYROXINE NA 100 MCG TABLET (FP) PO SCH (06:27)
[2019-07-24] MEDS ORDERED: PT OWN MED DRAWER 7, Y5N ONE ×2 (09:24→22:25)
[2019-07-24] MEDS: TOPIRAMATE 25 MG TABLET (FP) PO SCH ×2 (09:33→22:27)
[2019-07-24] MEDS: ENOXAPARIN NA (PORCINE) 40 MG/0.4 ML DISP.SYRIN SQ SCH (11:04)
--- NOTE | 2019-07-24 12:23 | PN ---
Progress Note, Physician Chief Complaint: AWAKE ALERT INBED EVENTS REVIEWED - Current Medication List Current Medications: Active Medications Enoxaparin Sodium (Lovenox -) 40 mg SQ DAILY [facility] [place] Last Admin: 07/24/19 11:04 Dose: 40 mg Insulin Aspart ([facility]ial Sliding Scale -[facility]; Protocol Last Admin: 07/24/19 06:25 Dose: Not Given Levothyroxine Sodium (Synthroid -) 100 mcg PO DAILY@0700 [facility] Last Admin: 07/24/19 06:27 Dose: 100 mcg Topiramate (Topamax -) 25 mg PO BID [facility] [place] Last Admin: 07/24/19 09:33 Dose: 25 mg - Objective Vital Signs: Vital Signs Temperature 98.3 F 07/24/19 10:00 Pulse Rate 74 07/24/19 10:00 Respiratory Rate 07/24/19 10:00 Blood Pressure 124/72 07/24/19 10:00 O2 Sat by Pulse Oximetry (%) 100 07/23/19 13:30 Constitutional: Yes: Mild Distress Cardiovascular: Yes: Regular Rate and Rhythm Respiratory: Yes: WNL Gastrointestinal: Yes: Soft, Abdomen, Obese Genitourinary: Yes: WNL Musculoskeletal: Yes: Muscle Weakness Edema: Yes Wound/Incision: Yes: Clean/Dry Neurological: Yes: Other ...Motor Strength: WNL Psychiatric: Yes: WNL Labs: CBC, BMP 07/23/19 05:45 07/23/19 05:45 INR, PTT INR 1.08 (0.83-1.09) 07/22/19 17:35 Problem List - Problems (1) Blurry vision Code(s): H53.8 - OTHER VISUAL DISTURBANCES (2) Confusion Code(s): R41.0 - DISORIENTATION, UNSPECIFIED (3) Dizziness Code(s): R42 - DIZZINESS AND GIDDINESS (4) Other specified hypothyroidism Code(s): E03.8 - OTHER SPECIFIED HYPOTHYROIDISM (5) Pre-syncope Code(s): R55 - SYNCOPE AND COLLAPSE (6) Diabetes Code(s): E11.9 - TYPE 2 DIABETES MELLITUS WITHOUT COMPLICATIONS (7) Obesity Code(s): E66.9 - OBESITY, UNSPECIFIED Qualifiers: Body mass index: BMI 40.0-44.9 Assessment/Plan NEUROLOGY WORKUP IN PROGRESS TIA/SYNCOPE/VERTIGO PT EVAL SNF PLACEMENT KEEP LDL LESS THAN 70 ON STATIN BP AND DM CONTROL DIETARY CONSULT MENU FOR ADA/LOW FAT/LOW NA+ DIET LIFESTYLE CHANGES STRESSED
--- NOTE | 2019-07-24 13:33 | PN ---
Progress Note, Physician Chief Complaint: no complaint - Current Medication List Current Medications: Active Medications Enoxaparin Sodium (Lovenox -) 40 mg SQ DAILY [facility] Last Admin: 07/24/19 11:04 Dose: 40 mg Insulin Aspart ([facility] -) [facility]; Protocol Last Admin: 07/24/19 06:25 Dose: Not Given Levothyroxine Sodium (Synthroid -) 100 mcg PO DAILY@0700 [facility] Last Admin: 07/24/19 06:27 Dose: 100 mcg Topiramate (Topamax -) 25 mg PO BID [facility] Last Admin: 07/24/19 09:33 Dose: 25 mg - Objective Vital Signs: Vital Signs Temperature 98.3 F 07/24/19 10:00 Pulse Rate 74 07/24/19 10:00 Respiratory Rate 20 07/24/19 10:00 Blood Pressure 124/72 07/24/19 10:00 O2 Sat by Pulse Oximetry (%) 97 07/24/19 09:00 Constitutional: Yes: Calm Eyes: Yes: EOM Intact HENT: Yes: Normocephalic Neck: Yes: Trachea Midline Respiratory: Yes: CTA Bilaterally Gastrointestinal: Yes: Normal Bowel Sounds ...Rectal Exam: Yes: Deferred Genitourinary: Yes: WNL Musculoskeletal: Yes: WNL Extremities: Yes: WNL Neurological: Yes: Alert, Oriented Labs: CBC, BMP 07/23/19 05:45 07/23/19 05:45 INR, PTT INR 1.08 (0.83-1.09) 07/22/19 17:35 Problem List - Problems (1) Other specified hypothyroidism Code(s): E03.8 - OTHER SPECIFIED HYPOTHYROIDISM (2) Blurry vision Code(s): H53.8 - OTHER VISUAL DISTURBANCES (3) Confusion Code(s): R41.0 - DISORIENTATION, UNSPECIFIED (4) Dizziness Code(s): R42 - DIZZINESS AND GIDDINESS (5) Pre-syncope Code(s): R55 - SYNCOPE AND COLLAPSE (6) Anemia Code(s): D64.9 - ANEMIA, UNSPECIFIED Qualifiers: Iron deficiency anemia type: other iron deficiency (7) Diabetes Code(s): E11.9 - TYPE 2 DIABETES MELLITUS WITHOUT COMPLICATIONS Assessment/Plan Current Active Problems diabetes mellitus type 2 hypothyroidism Blurry vision (Acute) Confusion (Acute) Dizziness (Acute) Other specified hypothyroidism (Acute) Pre-syncope (Acute) Laboratory Results - last 24 hr 07/23/19 07/24/19 07/24/19 17:22 05:35 05:35 ESR 16 POC Glucometer 90 C-Reactive Protein 0.6 H Vitamin B12 457 TSH 1.68 plan: diet controlled yet ho dm insulin resistant using januvia at home restart januvia 50mg daily synthroid 100mcg daily
[2019-07-24] MEDS ORDERED: ACETAMINOPHEN 500 MG TABLET (FP) PO PRN (19:04)
[2019-07-25] MEDS: sitaGLIPtin PHOSPHATE 50 MG TABLET PO SCH ×3 (07:01→08:11)
[2019-07-25] MEDS: LEVOTHYROXINE NA 100 MCG TABLET (FP) PO SCH (07:01)
[2019-07-25] MEDS: INSULIN SLIDING SCALE (NOVOLOG) 1 VIAL SQ SCH ×2 (07:01→16:57)
[2019-07-25] MEDS ORDERED: PT OWN MED DRAWER 7, Y5N ONE ×2 (08:52→21:22)
[2019-07-25] MEDS: TOPIRAMATE 25 MG TABLET (FP) PO SCH ×2 (09:15→21:58)
[2019-07-25] MEDS: ENOXAPARIN NA (PORCINE) 40 MG/0.4 ML DISP.SYRIN SQ SCH (09:15)
--- NOTE | 2019-07-25 10:31 | PN ---
Progress Note, Physician Chief Complaint: AWAKE ALERT SOME DIFFICULTY WITH SPEECH HOWEVER THIS IS CHRONIC C/O BLURRED VISION NO DIZZINESS OR HEADACHE - Current Medication List Current Medications: Active Medications Acetaminophen (Tylenol -) 1,000 mg PO Q8H PRN PRN Reason: PAIN LEVEL 4 - 6 Last Admin: 07/24/19 22:27 Dose: 1,000 mg Enoxaparin Sodium (Lovenox -) 40 mg SQ DAILY [facility] Last Admin: 07/25/19 09:15 Dose: 40 mg Insulin Aspart ([facility]) [facility] Last Admin: 07/25/19 07:01 Dose: Not Given Levothyroxine Sodium (Synthroid -) 100 mcg PO DAILY@0700 [facility] Last Admin: 07/25/19 07:01 Dose: 100 mcg Sitagliptin Phosphate (Januvia -) 50 mg PO DAILY@0700 [facility] Last Admin: 07/25/19 08:11 Dose: 50 mg Topiramate (Topamax -) 25 mg PO BID [facility] Last Admin: 07/25/19 09:15 Dose: 25 mg - Objective Vital Signs: Vital Signs Temperature 98.3 F 07/25/19 09:07 Pulse Rate 82 07/25/19 09:07 Respiratory Rate 18 07/25/19 09:07 Blood Pressure 126/66 07/25/19 09:07 O2 Sat by Pulse Oximetry (%) 97 07/24/19 09:00 Constitutional: Yes: Mild Distress Cardiovascular: Yes: Regular Rate and Rhythm Respiratory: Yes: WNL Gastrointestinal: Yes: Soft, Abdomen, Obese Genitourinary: Yes: WNL Musculoskeletal: Yes: Muscle Weakness Edema: Yes Neurological: Yes: Pre-Existing Deficit Psychiatric: Yes: Other Labs: CBC, BMP 07/23/19 05:45 07/23/19 05:45 INR, PTT INR 1.08 (0.83-1.09) 07/22/19 17:35 Problem List - Problems (1) Blurry vision Code(s): H53.8 - OTHER VISUAL DISTURBANCES (2) Confusion Code(s): R41.0 - DISORIENTATION, UNSPECIFIED (3) Dizziness Code(s): R42 - DIZZINESS AND GIDDINESS (4) Other specified hypothyroidism Code(s): E03.8 - OTHER SPECIFIED HYPOTHYROIDISM (5) Pre-syncope Code(s): R55 - SYNCOPE AND COLLAPSE (6) Diabetes Code(s): E11.9 - TYPE 2 DIABETES MELLITUS WITHOUT COMPLICATIONS (7) Obesity Code(s): E66.9 - OBESITY, UNSPECIFIED Qualifiers: Body mass index: BMI 40.0-44.9 Assessment/Plan NEUROLOGY WORKUP IN PROGRESS TIA/SYNCOPE/VERTIGO PT EVAL SNF PLACEMENT KEEP LDL LESS THAN 70 ON STATIN BP AND DM CONTROL DIETARY CONSULT MENU FOR ADA/LOW FAT/LOW NA+ DIET LIFESTYLE CHANGES STRESSED WILL NEED OPTHOMOLOGY EVAL OUTPATIENT LIPID PANEL ORDERED FOR AM STATIN STARTED WITH BABY ASA NEURO F/U
[2019-07-25] MEDS ORDERED: ATORVASTATIN CA 40 MG TABLET (FP) PO SCH (22:00)
[2019-07-26] MEDS: INSULIN SLIDING SCALE (NOVOLOG) 1 VIAL SQ SCH (06:00)
[2019-07-26] MEDS: sitaGLIPtin PHOSPHATE 50 MG TABLET PO SCH (06:00)
[2019-07-26] MEDS: LEVOTHYROXINE NA 100 MCG TABLET (FP) PO SCH (06:01)
[2019-07-26 06:57] LABS: HEMATOCRIT 39.5 % (32.4-45.2); HEMOGLOBIN 12.2 GM/dL (10.7-15.3); MCH 22.3 pg (25.7-33.7); MCHC 30.9 g/dl (32.0-36.0); MEAN CELL VOLUME 72.1 fl (80-96); MEAN PLT VOLUME 8.5 fl (7.5-11.1); PLATELET COUNT 279 K/MM3 (134-434); RBC 5.48 M/mm3 (3.60-5.2); RDW 22.7 % (11.6-15.6); WHITE BLOOD COUNT 11.1 K/mm3 (4.0-10.0)
[2019-07-26 07:26] LABS: ALBUMIN 3.4 g/dl (3.4-5.0); BILIRUBIN,TOTAL 0.7 mg/dL (0.2-1); BLOOD UREA NITROGEN 17.8 mg/dL (7-18); CALCIUM 9.6 mg/dL (8.5-10.1); CREATININE 0.7 mg/dL (0.55-1.3); POTASSIUM 4.3 mmol/L (3.5-5.1); TOT PROT 7.3 g/dl (6.4-8.2)
--- NOTE | 2019-07-26 08:14 | DS ---
Physical Examination Vital Signs: Vital Signs Temperature 97.9 F 07/26/19 01:43 Pulse Rate 70 07/26/19 05:23 Respiratory Rate 20 07/26/19 05:23 Blood Pressure 103/46 L 07/26/19 05:23 O2 Sat by Pulse Oximetry (%) 94 L 07/25/19 21:00 Constitutional: Yes: Mild Distress Cardiovascular: Yes: Regular Rate and Rhythm Respiratory: Yes: WNL Gastrointestinal: Yes: Soft, Abdomen, Obese Renal/: Yes: WNL Musculoskeletal: Yes: Muscle Weakness Edema: Yes Edema: LLE: Trace, RLE: Trace Wound/Incision: Yes: Clean/Dry Neurological: Yes: Confusion, Pre-Existing Deficit, Weakness ...Motor Strength: LLE, RLE Labs: CBC, BMP 07/26/19 06:35 07/26/19 06:35 Discharge Summary Problems reviewed: Yes Reason For Visit: DIZZINESS Current Active Problems Blurry vision (Acute) Confusion (Acute) Dizziness (Acute) Other specified hypothyroidism (Acute) Pre-syncope (Acute) Procedures: Principal: MRI/MRA Hospital Course: ADMITTED R/O CVA, PATIENT WENT THROUGH NEUROLOGY WORKUP NO ACUTE CVA, POSSIBLE TIA WITH SYNCOPE. WILL NEED SNF PLACEMENT FOR PT/REHAB. Plan of Treatment: TRANSFER TO SNF Condition: Improved - Instructions Diet, Activity, Other Instructions: SNF PLACEMENT FOLLOW UP WITH OPTHOMOLOGY CONSULT BLURRED VISION CHECK WEEKLY LABS NEUROLOGY CONSULT F/U DR MADERA Referrals: Justin Laboy MD [Primary Care Provider] - Disposition: LONG TERM FACILITY - Home Medications Comprehensive Discharge Medication List: Ambulatory Orders Levothyroxine [Synthroid -] 100 mcg PO DAILY@0700 tablet 12/22/16 Sitagliptin Phosphate [Januvia] 100 mg PO DAILY 07/22/19 Acetaminophen [Tylenol .Extra-Strength -] 1,000 mg PO Q8H PRN tablet 07/26/19 Aspirin [ASA -] 81 mg PO DAILY tab.chew 07/26/19 Atorvastatin Ca [Lipitor] 40 mg PO HS tablet 07/26/19 Enoxaparin [Lovenox -] 40 mg SQ DAILY disp.syrin 07/26/19 Insulin Sliding Scale [Novolog Vial Sliding Scale -] 1 vial SQ [facility]IDAC units 07/15 Sitagliptin Phosphate [Januvia -] 50 mg PO DAILY@0700 tablet 07/26/19 Topiramate [Topamax -] 25 mg PO BID tablet 07/26/19
[2019-07-26] MEDS ORDERED: PT OWN MED DRAWER 7, Y5N ONE (08:57)
[2019-07-26] MEDS: ENOXAPARIN NA (PORCINE) 40 MG/0.4 ML DISP.SYRIN SQ SCH (09:48)
[2019-07-26] MEDS ORDERED: ASPIRIN 81 MG CHEWABLE TABLETS PO SCH (10:00)
[2019-07-26 10:19] VITALS: BP 109/58; PULSE 68; TEMP 98.4
[2019-07-26] MEDS: TOPIRAMATE 25 MG TABLET (FP) PO SCH (11:11)
== END 2019-07-26 11:55 | DRG 69 ==
LOC: JER 16:35 → JERBED 17:55 → J4W 07-23 13:08
PROVIDERS: ADMIT Family Medicine; ATTEND Family Medicine
DX: G45.8 Other transient cerebral ischemic attacks and related syndromes (principal); Z68.41 Body mass index [BMI] 40.0-44.9, adult; E11.9 Type 2 diabetes mellitus without complications; E03.9 Hypothyroidism, unspecified; D64.9 Anemia, unspecified; D72.829 Elevated white blood cell count, unspecified; H53.8 Other visual disturbances; R47.81 Slurred speech; E78.5 Hyperlipidemia, unspecified; G43.809 Other migraine, not intractable, without status migrainosus; E66.01 Morbid (severe) obesity due to excess calories; R55 Syncope and collapse
CPT/HCPCS: 36415; 70450-TC; 70551-TC; 71045-TC-FY; 80048; 80053; 80061; 81003; 82550; 82607; 82962; 83036; 83721; 83735; 84100; 84443; 84484; 85025; 85027; 85610; 85651; 86140; 87086; 93005; 93010; 93880-TC; 97116-GP; 97162-GP; 99285-25; J0131

== ENCOUNTER 2020-01-21 15:56 | Inpatient (IN) | payer OTHER ==
[2020-01-21 17:27] LABS: BASO % 0.9 % (0-2.0); EOS % 3.9 % (0-4.5); MCHC 25.9 g/dl (32.0-36.0); MEAN PLT VOLUME 8.5 fl (7.5-11.1); MONO % 8.6 % (3.8-10.2); NEUT % 71.6 % (42.8-82.8); PLATELET COUNT 404 K/MM3 (134-434); RBC 2.77 M/mm3 (3.60-5.2); RDW 23.2 % (11.6-15.6); WHITE BLOOD COUNT 13.4 K/mm3 (4.0-10.0)
--- NOTE | 2020-01-21 17:29 | PDOC ---
History of Present Illness - General Chief Complaint: Abnormal Lab Results (Outside) Stated Complaint: ABNORMAL LABS Time Seen by Provider: 01/21/20 17:04 History Source: Patient, Skilled Nursing Records Exam Limitations: No Limitations - History of Present Illness Initial Comments: Pt is a 69 yo F, with PMH of hypothyroidism (s/p thyroidectomy), DM, anemia, obesity, vertigo, CVA (R frontal), sz, and prior [place], who is presenting via [facility] for hemoglobin of 4. Pt has presented for a similar work-up in the past, and was transfused, but denied colonoscopy at that time. Pt has hx of hemorrhoids and believes her bleeding is coming from straining during bowel movements. Pt endorses vertigo but states that is at her baseline. Pt denies any fevers/chills, headache, vision changes, syncope, chest pain, palpitations, SOB, nausea/vomiting, abdominal pain, urinary symptoms, diarrhea/constipation, or leg swelling. Allergies: NKDA [facility] on vaccinations, normal history. Social: Pt denies any cigarette, alcohol, or drug use. Pt denies any recent travel or sick contacts. Surgical: thyroidectomy Family: no relevant history. 01/21/20 17:33 01/21/20 19:02 01/21/20 19:13 Past History - Travel History Traveled outside of the country in the last 30 days: No Close contact w/someone who was outside of country & ill: No - Medical History Allergies/Adverse Reactions: Allergies Allergy/AdvReac Type Severity Reaction Status Date / Time No Known Allergies Allergy Verified 01/21/20 16:12 Home Medications: Ambulatory Orders Sitagliptin Phosphate [Januvia] 100 mg PO DAILY 07/22/19 Aspirin [ASA -] 81 mg PO DAILY tab.chew 07/26/19 Atorvastatin Ca [Lipitor] 40 mg PO HS tablet 07/26/19 Enoxaparin [Lovenox -] 40 mg SQ DAILY disp.syrin 07/26/19 Sitagliptin Phosphate [Januvia -] 50 mg PO DAILY@0700 tablet 07/26/19 Acetaminophen [Tylenol .Extra-Strength -] 650 mg PO Q8H PRN 01/21/20 Insulin Lispro [Admelog Solostar] 100 unit SQ QID PRN 01/21/20 Levothyroxine [Synthroid -] 50 mcg PO DAILY@0700 01/21/20 Meclizine HCl [Antivert -] 12.5 mg PO TID PRN 01/21/20 Topiramate [Topamax -] 25 mg PO BID 01/21/20 Anemia: Yes Cardiac Disorders: Yes ([place] (ACS), arrythmias) CVA: Yes COPD: No DVT: No Diabetes: Yes Seizures: Yes Thyroid Disease: Yes (throidectomy) - Surgical History Abdominal Surgery: Yes (D&C) - Immunization History Immunization Up to Date: Yes - Psycho-Social/Smoking History Smoking History: Unknown if ever smoked Have you smoked in the past 12 months: No Review of Systems - Review of Systems Able to Perform ROS?: Yes Is the patient limited Uzbek proficient: No Constitutional: Yes: Weight Stable. No: Chills, Diaphoresis, Fever, Loss of Appetite, Malaise, Weakness HEENTM: No: Blurred Vision, Recent change in vision, Nose Congestion, Tinnitus, Throat Pain, Difficulty Swallowing Respiratory: No: Cough, Orthopnea, Shortness of Breath Cardiac (ROS): No: Chest Pain, Edema, Irregular Heart Rate, Lightheadedness, Palpitations, Syncope, Chest Tightness ABD/GI: No: Constipated, Diarrhea, Nausea, Poor Appetite, Poor Fluid Intake, Vomiting : No: Burning, Dysuria, Frequency, Flank Pain, Hematuria, Pain, Urgency Musculoskeletal: No: Back Pain, Muscle Pain Integumentary: No: Rash Neurological: Yes: Dizziness (baseline vertigo). No: Headache, Numbness, Weakness Psychiatric: No: Sleep Pattern Change, Change in Appetite Endocrine: No: Increased Urine, Change in Weight Hematologic/Lymphatic: Yes: Anemia. No: Blood Clots, Easy Bleeding, Easy Bruising All Other Systems: Reviewed and Negative *Physical Exam - Vital Signs Last Vital Signs Temp Pulse Resp BP Pulse Ox 98.4 F 92 H 18 96/56 L 98 01/21/20 16:10 01/21/20 16:10 01/21/20 16:10 01/21/20 16:10 01/21/20 16:10 - Physical Exam borderline hypotensive and tachycardic, pt afebrile. Pt in NAD, obese body habitus. Pt alert and oriented x3. production editor generally intact, muscular strength and sensation intact. Vertigo induced with positional changes. No midline spinal tenderness, step-offs, or crepitus. Head normocephalic, atraumatic. Eyes PERRLA, EOMI. Oropharynx without erythema or exudates, no LAD b/l. No nasal congestion. Hearing intact. Clear heart sounds, S1/S2, no JVD, b/l pedal edema, or heart murmur. Clear lung sounds, no respiratory distress, wheezes, crackles, or accessory muscle use. No abdominal or CVA tenderness to palpation, no rebound, no guarding. Abdomen soft, non-distended, and with normoactive bowel sounds. Skin without jaundice or rash. 01/23/20 08:34 ED Treatment Course - LABORATORY CBC & Chemistry Diagram: 01/23/20 06:39 01/23/20 06:39 Medical Decision Making - Medical Decision Making Pt was seen at bedside, also will be seen by attending Dr. Fernandes. Pt presenting with low Hgb, likely 2/2 to chronic GIB. Pt asymptomatic, other than chronic vertigo. VS with borderline hypoTN and tachycardia, started IVF and ordered pRBCs Pt consented for transfusion Pt admitted to Dr. Peters's team with Dr. Michael (GI) consulted. 01/23/20 18:49 Discharge - Discharge Information Problems reviewed: Yes Clinical Impression/Diagnosis: GIB (gastrointestinal bleeding) Qualifiers: GI bleed type/associated pathology: unspecified gastrointestinal hemorrhage ty pe Qualified Code(s): K92.2 - Gastrointestinal hemorrhage, unspecified Anemia Qualifiers: Anemia type: iron deficiency Iron deficiency anemia type: other iron deficiency Qualified Code(s): D50.8 - Other iron deficiency anemias Condition: Guarded - Admission Yes - Follow up/Referral - Patient Discharge Instructions - Post Discharge Activity
[2020-01-21 17:35] LABS: HEMOGLOBIN 4.1 GM/dL (10.7-15.3)
[2020-01-21 17:39] LABS: INR 1.09 (0.83-1.09); PROTHROMBIN TIME (PATIENT) 12.9 SEC (9.7-13.0)
[2020-01-21 17:42] LABS: ACTIVATED PTT 25.6 SECONDS (25.2-36.5)
[2020-01-21 18:15] LABS: ALBUMIN 3.2 g/dl (3.4-5.0); ALK PHOS 80 U/L (45-117); ANION GAP 7 MMOL/L (8-16); BILIRUBIN,TOTAL 0.4 mg/dL (0.2-1); BLOOD UREA NITROGEN 12.9 mg/dL (7-18); CALCIUM 9.6 mg/dL (8.5-10.1); CHLORIDE 108 mmol/L (98-107); CO2 26 mmol/L (21-32); CREATININE 0.7 mg/dL (0.55-1.3); GLUCOSE,RANDOM 92 mg/dL (74-106); POTASSIUM 3.9 mmol/L (3.5-5.1); SGOT/AST 23 U/L (15-37); SGPT/ALT 12 U/L (13-61); SODIUM 141 mmol/L (136-145); TOT PROT 7.2 g/dl (6.4-8.2)
[2020-01-21 18:17] LABS: ANISOCYTOSIS 2+; MACROCYTOSIS 0; OVALOCYTE 1+; PLATELET ESTIMATE NORMAL; TARGET CELLS 2+
--- NOTE | 2020-01-21 21:40 | HP ---
Admitting History and Physical - Primary Care Physician PCP: Omar Shah - Admission Chief Complaint: Abnormal Lab Value History of Present Illness: This is a 69 y/o woman from [facility] with a PMHx of Iron Deficiency Anemia, Hemorrhoids, Cerebral Infarction, Epilepsy, Seizures, COPD, Diabetes Mellitus, HTN, HLD, Hypothyroidism, Dysphagia (from Cerebral Infarction), OA, Pneumonia, +COVID-19. Who presents to the ED sent in for Hgb 3.9 per outpatient lab report. Patient has TBI unable to provide HPI. 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 Cardiovascular: Yes: HTN, Hyperlipdemia Pulmonary: Yes: COPD, Pneumonia Gastrointestinal: Yes: Hemorrhoids Heme/Onc: Yes: Anemia Infectious Disease: Yes: Other (COVID 19) Endocrine: Yes: Diabetes Mellitus, Hypothyroidism - Smoking History Smoking history: Unknown if ever smoked Have you smoked in the past 12 months: No - Alcohol/Substance Use Hx Alcohol Use: No History of Substance Use: reports: None - Social History Usual Living Arrangement: Yes: Jail ADL: Support Services History of Recent Travel: No Home Medications - Allergies Allergies/Adverse Reactions: Allergies Allergy/AdvReac Type Severity Reaction Status Date / Time No Known Allergies Allergy Verified 01/21/20 16:12 - Home Medications Home Medications: Ambulatory Orders Sitagliptin Phosphate [Januvia] 100 mg PO DAILY 07/22/19 Aspirin [ASA -] 81 mg PO DAILY tab.chew 07/26/19 Atorvastatin Ca [Lipitor] 40 mg PO HS tablet 07/26/19 Enoxaparin [Lovenox -] 40 mg SQ DAILY disp.syrin 07/26/19 Sitagliptin Phosphate [Januvia -] 50 mg PO DAILY@0700 tablet 07/26/19 Acetaminophen [Tylenol .Extra-Strength -] 650 mg PO Q8H PRN 01/21/20 Insulin Lispro [Admelog Solostar] 100 unit SQ QID PRN 01/21/20 Levothyroxine [Synthroid -] 50 mcg PO DAILY@0700 01/21/20 Meclizine HCl [Antivert -] 12.5 mg PO TID PRN 01/21/20 Topiramate [Topamax -] 25 mg PO BID 01/21/20 Family Medical History Family History: Unable to Obtain Review of Systems - Review of Systems Constitutional: reports: No Symptoms Eyes: reports: No Symptoms HENT: reports: No Symptoms Neck: reports: No Symptoms Cardiovascular: reports: No Symptoms Respiratory: reports: No Symptoms Gastrointestinal: reports: No Symptoms Genitourinary: reports: No Symptoms Breasts: reports: No Symptoms Reported Musculoskeletal: reports: No Symptoms Integumentary: reports: No Symptoms Neurological: reports: No Symptoms Endocrine: reports: No Symptoms Hematology/Lymphatic: reports: No Symptoms Psychiatric: reports: No Symptoms Physical Examination Vital Signs: Vital Signs Temperature 98 F 01/21/20 17:56 Pulse Rate 86 01/21/20 17:56 Respiratory Rate 16 01/21/20 17:56 Blood Pressure 100/54 L 01/21/20 17:56 O2 Sat by Pulse Oximetry (%) 100 01/21/20 17:56 Constitutional: Yes: No Distress, Anxious, Obese Eyes: Yes: WNL, Conjunctiva Clear, EOM Intact, PERRL HENT: Yes: WNL, Atraumatic, Normocephalic Neck: Yes: WNL, Supple, Trachea Midline Cardiovascular: Yes: WNL, Regular Rate and Rhythm, S1, S2 Respiratory: Yes: Regular, CTA Bilaterally Gastrointestinal: Yes: Soft, Abdomen, Obese, Hypoactive Bowel Sounds ...Rectal Exam: Yes: Guaiac Positive Renal/: Yes: Incontinence, Urethral Discharge Musculoskeletal: Yes: WNL Extremities: Yes: WNL Edema: No Peripheral Pulses WNL: Yes Neurological: Yes: Alert, Confusion ...Motor Strength: WNL Psychiatric: Yes: Alert Labs: CBC, BMP 01/21/20 17:00 01/21/20 17:00 Laboratory Results - last 24 hr 01/21/20 01/21/20 01/21/20 17:00 17:00 17:00 WBC 13.4 H RBC 2.77 L Hgb 4.1 L* Hct 16.0 L D MCV 58.0 L MCH 15.0 L D MCHC 25.9 L RDW 23.2 H Plt Count 404 MPV 8.5 Absolute Neuts (auto) 9.6 H Neutrophils % 71.6 Lymphocytes % 15.0 D Monocytes % 8.6 Eosinophils % 3.9 Basophils % 0.9 Nucleated RBC % 0 Hypochromia 3+ Platelet Estimate Normal Polychromasia 2+ Poikilocytosis 2+ Anisocytosis 2+ Microcytosis 2+ Macrocytosis 0 Target Cells 2+ Ovalocytes 1+ Stomatocytes 1+ PT with INR 12.90 INR 1.09 PTT (Actin FS) 25.6 Sodium 141 Potassium 3.9 Chloride 108 H Carbon Dioxide 26 Anion Gap 7 L BUN 12.9 Creatinine 0.7 Est GFR (CKD-EPI)AfAm 101.74 Est GFR (CKD-EPI)NonAf 87.78 Random Glucose 92 Calcium 9.6 Total Bilirubin 0.4 AST 23 ALT 12 L Alkaline Phosphatase 80 Troponin I < 0.02 Total Protein 7.2 Albumin 3.2 L Stool Occult Blood Blood Type Antibody Screen Crossmatch 01/21/20 01/21/20 01/21/20 17:00 17:13 17:13 WBC RBC Hgb Hct MCV MCH MCHC RDW Plt Count MPV Absolute Neuts (auto) Neutrophils % Lymphocytes % Monocytes % Eosinophils % Basophils % Nucleated RBC % Hypochromia Platelet Estimate Polychromasia Poikilocytosis Anisocytosis Microcytosis Macrocytosis Target Cells Ovalocytes Stomatocytes PT with INR INR PTT (Actin FS) Sodium Potassium Chloride Carbon Dioxide Anion Gap BUN Creatinine Est GFR (CKD-EPI)AfAm Est GFR (CKD-EPI)NonAf Random Glucose Calcium Total Bilirubin AST ALT Alkaline Phosphatase Troponin I Total Protein Albumin Stool Occult Blood Positive Blood Type Cancelled AB NEGATIVE Antibody Screen Cancelled Negative Crossmatch See Detail Intake & Output 01/18/20 01/19/20 01/20/20 01/21/20 23:59 23:59 23:59 23:59 Weight 82.327 kg Current Medications Generic Name Dose Route Start Last Admin Trade Name Freq PRN Reason Stop Dose Admin Atorvastatin Calcium 40 mg 01/21/20 22:00 Lipitor - PO HS YOSELYN Levothyroxine Sodium 50 mcg 01/22/20 07:00 Synthroid - PO DAILY@0700 YOSELYN Topiramate 50 mg 01/21/20 22:00 Topamax - PO BID YOSELYN Imaging - Results Chest X-ray: Image Reviewed EKG: Image Reviewed Problem List - Problems (1) Anemia Assessment/Plan: Hx SRIDEVI Outpatient Hgb 3.9, here today 4.1 PRBCs x2 ordered in ED Monitor CBC closely FE, TIBC, Ferritin added to recent labs Consider Hematology consult Continue cardiac monitoring O2 Code(s): D64.9 - ANEMIA, UNSPECIFIED Qualifiers: Iron deficiency anemia type: other iron deficiency (2) GI (gastrointestinal bleed) Assessment/Plan: Stool Occult + Hgb 4.1 Hx Hemorrhoids Appreciate GI consult NPO Gentle IVF PPI Monitor CBC, CMP Cardiac monitoring Code(s): K92.2 - GASTROINTESTINAL HEMORRHAGE, UNSPECIFIED (3) HTN (hypertension) Assessment/Plan: stable Monitor BP Hold home meds secondary to Anemia, ?GI Bleed, soft BP Monitor renal function Code(s): I10 - ESSENTIAL (PRIMARY) HYPERTENSION (4) HLD (hyperlipidemia) Assessment/Plan: stable Continue Lipitor Monitor LFTs Code(s): E78.5 - HYPERLIPIDEMIA, UNSPECIFIED (5) Hypothyroidism Assessment/Plan: stable Continue Levothyroxine Code(s): E03.9 - HYPOTHYROIDISM, UNSPECIFIED (6) Diabetes Assessment/Plan: stable BGMs ISS when diet resume Hold Januvia secondary to NPO Monitor CMP Code(s): E11.9 - TYPE 2 DIABETES MELLITUS WITHOUT COMPLICATIONS (7) Encounter for screening laboratory testing for COVID-19 virus Assessment/Plan: Low Risk COVID PCR-pending Isolation Precautions Code(s): Z11.59 - ENCOUNTER FOR SCREENING FOR OTHER VIRAL DISEASES Assessment/Plan This is a 69 y/o woman from [facility] with a PMHx of Iron Deficiency Anemia, Hemorrhoids, Cerebral Infarction, Epilepsy, Seizures, COPD, Diabetes Mellitus, HTN, HLD, Hypothyroidism, Dysphagia (from Cerebral Infarction), OA, Pneumonia, +COVID-19. Admitted to Telemetry for Anemia, GI Bleed for further evaluation of their emergent condition. Plan: See Problem List FEN D51/2NS@42ml/hr post transfusions Replete lytes prn NPO DVT ppx OOB SCDs Hold AC secondary to Anemia, GI Bleed Visit type - Medication Review Med list reviewed for High Risk Meds patients 65 and older: Yes - Emergency Visit Emergency Visit: Yes ED Registration Date: 01/21/20 Care time: The patient presented to the Emergency Department on the above date and was hospitalized for further evaluation of their emergent condition. - New Patient This patient is new to me today: Yes Date on this admission: 01/21/20 - Critical Care Critical Care patient: No
--- NOTE | 2020-01-21 23:26 | PDOC ---
Documentation entered by Samina Barone SCRIBE, acting as scribe for Robby Fernandes DO. Robby Fernandes DO: This documentation has been prepared by the Abisai cueto Brenda, SCRIBE, under my direction and personally reviewed by me in its entirety. I confirm that the documentation accurately reflects all work, treatment, procedures, and medical decision making performed by me. Attending Attestation - Resident Resident Name: BonnieBeatrice - ED Attending Attestation I have performed the following: I have examined & evaluated the patient, The case was reviewed & discussed with the resident, I agree w/resident's findings & plan, Exceptions are as noted - HPI HPI: 01/21/20 17:19 The patient is a 69 year old female with a significant past medical history of CVA (R frontal gyrus), thyroidectomy, DM2, HLD, seizures, anemia, MO, ACS, DM, OA bilateral knees who presents to the ED for evaluation of hemoglobin of 4.1 from nursing facility. Patient complains fo feeling lightheaded for the past few weeks. She is not on anticoagulants. She has had prior GI bleed but denies any abdominal pain, nausea, vomiting or fever. She does admit to bright red blood per rectum. History was somewhat limited, patient is a poor historian. Allergies: NKA PCP:Pavel Shah - Physicial Exam PE: 01/21/20 17:49 Abdomen is soft, non-distended, non-tender, in no apparent distress. - Critical Care Time Total Critical Care Time: 35 Critical Care Statement: The care of this patient involved high complexity decision making to prevent further life threatening deterioration of the patient's condition and/or to evaluate & treat vital organ system(s) failure or risk of failure. - Medical Decision Making 01/21/20 17:49 Assessment and plan: 69 year old female with symptomatic anemia. BP is borderline low. Plan for transfusion, stool guaiac and reassess, admission. Reassess BP after IV fluids and transfusion. VSS, Admitted in stable condition, given Prbcs 01/30/20 17:24 Discharge - Discharge Information Problems reviewed: Yes Clinical Impression/Diagnosis: GIB (gastrointestinal bleeding) Qualifiers: GI bleed type/associated pathology: unspecified gastrointestinal hemorrhage type Qualified Code(s): K92.2 - Gastrointestinal hemorrhage, unspecified Anemia Qualifiers: Anemia type: iron deficiency Iron deficiency anemia type: other iron deficiency Qualified Code(s): D50.8 - Other iron deficiency anemias Condition: Improved Disposition: [facility] - Follow up/Referral - Patient Discharge Instructions - Post Discharge Activity
[2020-01-21] MEDS ORDERED: ATORVASTATIN CA 40 MG TABLET (FP) ONE (23:33)
[2020-01-21] MEDS ORDERED: TOPIRAMATE 25 MG TABLET ONE (23:33)
[2020-01-21] MEDS: TOPIRAMATE 25 MG TABLET PO SCH (23:39)
[2020-01-21] MEDS: ATORVASTATIN CA 40 MG TABLET (FP) PO SCH (23:39)
[2020-01-22 03:15] LABS: BASO % 0.6 % (0-2.0); EOS % 2.7 % (0-4.5); HEMATOCRIT 22.7 % (32.4-45.2); LYMPH % 18.2 % (8-40); MCH 20.4 pg (25.7-33.7); MEAN CELL VOLUME 68.1 fl (80-96); MEAN PLT VOLUME 8.7 fl (7.5-11.1); MONO % 9.1 % (3.8-10.2); NEUT % 69.4 % (42.8-82.8); PLATELET COUNT 332 K/MM3 (134-434); RBC 3.34 M/mm3 (3.60-5.2); RDW 31.4 % (11.6-15.6); WHITE BLOOD COUNT 11.6 K/mm3 (4.0-10.0)
[2020-01-22 03:18] VITALS: BMI 35.2
[2020-01-22 03:20] LABS: HEMOGLOBIN 6.8 GM/dL (10.7-15.3)
[2020-01-22] MEDS: LEVOTHYROXINE NA 50 MCG TABLET (FP) PO SCH (06:34)
[2020-01-22 07:21] LABS: BASO % 0.4 % (0-2.0); EOS % 2.7 % (0-4.5); HEMATOCRIT 23.5 % (32.4-45.2); MCHC 29.8 g/dl (32.0-36.0); MEAN CELL VOLUME 67.1 fl (80-96); MEAN PLT VOLUME 8.5 fl (7.5-11.1); MONO % 7.8 % (3.8-10.2); NEUT % 71.1 % (42.8-82.8); PLATELET COUNT 342 K/MM3 (134-434); RDW 30.4 % (11.6-15.6); WHITE BLOOD COUNT 13.2 K/mm3 (4.0-10.0)
[2020-01-22 08:06] LABS: BILIRUBIN,TOTAL 1.3 mg/dL (0.2-1); BLOOD UREA NITROGEN 7.7 mg/dL (7-18); CALCIUM 9.1 mg/dL (8.5-10.1); CREATININE 0.6 mg/dL (0.55-1.3); POTASSIUM 3.8 mmol/L (3.5-5.1); TOT PROT 6.5 g/dl (6.4-8.2)
[2020-01-22] MEDS: FUROSEMIDE 40 MG/4 ML INJECTABLE VIAL IVPUSH SCH (09:20)
[2020-01-22] MEDS: TOPIRAMATE 25 MG TABLET PO SCH ×2 (09:20→23:21)
--- NOTE | 2020-01-22 10:20 | EKG ---
Test Reason : Blood Pressure : / mmHG Vent. Rate : 089 BPM Atrial Rate : 089 BPM P-R Int : 138 ms QRS Dur : 090 ms QT Int : 370 ms P-R-T Axes : 021 -09 027 degrees QTc Int : 450 ms POOR DATA QUALITY, INTERPRETATION MAY BE ADVERSELY AFFECTED NORMAL SINUS RHYTHM CANNOT RULE OUT ANTERIOR INFARCT (CITED ON OR BEFORE 22-JUL-2019) ABNORMAL ECG WHEN COMPARED WITH ECG OF 16-AUG-2019 23:18, NO SIGNIFICANT CHANGE WAS FOUND Confirmed by ARASH ARCOS MD ([id number]) on 01/22/2020 10:19:22 AM Referred By: Confirmed By:ARASH ARCOS MD
--- NOTE | 2020-01-22 13:15 | PN ---
Progress Note, Physician Chief Complaint: This is a 69 y/o woman from [facility] with a PMHx of Iron Deficiency Anemia, Hemorrhoids, Cerebral Infarction, Epilepsy, Seizures, COPD, Diabetes Mellitus, HTN, HLD, Hypothyroidism, Dysphagia (from Cerebral Infarction), OA, Pneumonia, +COVID-19. Who presents to the ED sent in for Hgb 3.9 per outpatient lab report. Patient has TBI unable to provide HPI. History Source: Transfer Record PATIENT IS IN BED RECEIVING TRANSFUSION PRBC - Current Medication List Current Medications: Active Medications Atorvastatin Calcium (Lipitor -) 40 mg PO HS [facility] Last Admin: 01/21/20 23:39 Dose: 40 mg Documented by: Furosemide (Lasix Injection -) 20 mg IVPUSH DAILY [facility] Last Admin: 01/22/20 09:20 Dose: 20 mg Documented by: Dextrose/Sodium Chloride (D5-Ns -) 1,000 mls @ 75 mls/hr IV ASDIR [facility] Levothyroxine Sodium (Synthroid -) 50 mcg PO DAILY@0700 [facility] Last Admin: 01/22/20 06:34 Dose: 50 mcg Documented by: Topiramate (Topamax -) 50 mg PO BID [facility] Last Admin: 01/22/20 09:20 Dose: 50 mg Documented by: - Objective Vital Signs: Vital Signs Temperature 98.9 F 01/22/20 02:30 Pulse Rate 72 01/22/20 05:00 Respiratory Rate 20 01/22/20 05:00 Blood Pressure 109/60 01/22/20 05:00 O2 Sat by Pulse Oximetry (%) 94 L 01/22/20 02:30 Constitutional: Yes: Mild Distress Cardiovascular: Yes: Pulse Irregular Respiratory: Yes: Diminished Genitourinary: Yes: Incontinence Musculoskeletal: Yes: Muscle Weakness Edema: Yes Neurological: Yes: Pre-Existing Deficit Psychiatric: Yes: Other Labs: CBC, BMP 01/22/20 06:41 01/22/20 06:41 INR, PTT INR 1.09 (0.83-1.09) 01/21/20 17:00 Problem List - Problems (1) Encounter for screening laboratory testing for COVID-19 virus Code(s): Z11.59 - ENCOUNTER FOR SCREENING FOR OTHER VIRAL DISEASES (2) HLD (hyperlipidemia) Code(s): E78.5 - HYPERLIPIDEMIA, UNSPECIFIED (3) HTN (hypertension) Code(s): I10 - ESSENTIAL (PRIMARY) HYPERTENSION (4) Hypothyroidism Code(s): E03.9 - HYPOTHYROIDISM, UNSPECIFIED (5) Anemia Code(s): D64.9 - ANEMIA, UNSPECIFIED Qualifiers: Iron deficiency anemia type: other iron deficiency (6) Confusion Code(s): R41.0 - DISORIENTATION, UNSPECIFIED (7) Diabetes Code(s): E11.9 - TYPE 2 DIABETES MELLITUS WITHOUT COMPLICATIONS (8) Dizziness Code(s): R42 - DIZZINESS AND GIDDINESS (9) GI (gastrointestinal bleed) Code(s): K92.2 - GASTROINTESTINAL HEMORRHAGE, UNSPECIFIED Assessment/Plan TRANSFUSE PRBC CHECK CBC TODAY 3PM, THEN NEXT TRANSFUSION WILL BE BASED ON THAT RESULT. GI EVAL IV FLUIDS PPI IV NPO MONITOR BGM FULL CODE
[2020-01-22 16:22] LABS: HEMATOCRIT 27.5 % (32.4-45.2); HEMOGLOBIN 8.6 GM/dL (10.7-15.3); MCHC 31.2 g/dl (32.0-36.0); MEAN CELL VOLUME 70.3 fl (80-96); MEAN PLT VOLUME 8.7 fl (7.5-11.1); PLATELET COUNT 355 K/MM3 (134-434); RBC 3.91 M/mm3 (3.60-5.2); RDW 31.1 % (11.6-15.6); WHITE BLOOD COUNT 12.8 K/mm3 (4.0-10.0)
[2020-01-22] MEDS: DEXTROSE 5%-NORMAL SALINE 1,000 ML IV SCH (19:11)
[2020-01-22] MEDS ORDERED: PT OWN MED DRAWER 7, Y5N ONE ×2 (20:56→22:23)
--- NOTE | 2020-01-22 22:02 | CON.GI ---
Consult Consult Specialty:: GI - History of Present Illness History of Present Illness: This is a 69 y/o woman from [facility] with a PMHx of Iron Deficiency Anemia, Hemorrhoids, Cerebral Infarction, Epilepsy, Seizures, COPD, Diabetes Mellitus, HTN, HLD, Hypothyroidism, Dysphagia (from Cerebral Infarction), OA, Pneumonia, +COVID-19. Who presents to the ED sent in for Hgb 3.9 per outpatient lab repor She claims to have rectal bleeding secondary to hemorrhoids. 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 Cardio/Vascular: Yes: HTN, Hyperlipdemia Pulmonary: Yes: COPD, Pneumonia Gastrointestinal: Yes: Hemorrhoids Infectious Disease: Yes: Other (COVID 19) Endocrine: Yes: Diabetes Mellitus, Hypothyroidism - Alcohol/Substance Use Hx Alcohol Use: No History of Substance Use: reports: None - Smoking History Smoking history: Unknown if ever smoked Have you smoked in the past 12 months: No - Social History ADL: Support Services History of Recent Travel: No Home Medications - Allergies Allergies/Adverse Reactions: Allergies Allergy/AdvReac Type Severity Reaction Status Date / Time No Known Allergies Allergy Verified 01/21/20 16:12 - Home Medications Home Medications: Ambulatory Orders Sitagliptin Phosphate [Januvia] 100 mg PO DAILY 07/22/19 Aspirin [ASA -] 81 mg PO DAILY tab.chew 07/26/19 Atorvastatin Ca [Lipitor] 40 mg PO HS tablet 07/26/19 Enoxaparin [Lovenox -] 40 mg SQ DAILY disp.syrin 07/26/19 Sitagliptin Phosphate [Januvia -] 50 mg PO DAILY@0700 tablet 07/26/19 Acetaminophen [Tylenol .Extra-Strength -] 650 mg PO Q8H PRN 01/21/20 Insulin Lispro [Admelog Solostar] 100 unit SQ QID PRN 01/21/20 Levothyroxine [Synthroid -] 50 mcg PO DAILY@0700 01/21/20 Meclizine HCl [Antivert -] 12.5 mg PO TID PRN 01/21/20 Topiramate [Topamax -] 25 mg PO BID 01/21/20 Physical Exam-GI Vital Signs: Vital Signs Temperature 98.9 F 01/22/20 09:00 Pulse Rate 74 01/22/20 09:00 Respiratory Rate 20 01/22/20 09:00 Blood Pressure 110/74 01/22/20 09:00 O2 Sat by Pulse Oximetry (%) 95 01/22/20 09:00 Constitutional: Yes: Obese Eyes: Yes: Conjunctiva Clear HENT: Yes: Atraumatic, Tonsillar Exudate Cardiovascular: Yes: Regular Rate and Rhythm Respiratory: Yes: CTA Bilaterally ...Palpate: Yes: Soft. No: Firm/Rigid, Guarding, Hepatomegaly, Mass, Pulsatile Mass, Splenomegaly, Tenderness ...Rectal Exam: Yes: Sphincter Tone Normal. No: Hemorrhoids/Internal, Mass Labs: CBC, BMP 01/22/20 16:00 01/22/20 06:41 INR, PTT INR 1.09 (0.83-1.09) 01/21/20 17:00 Problem List - Problems (1) Anemia Assessment/Plan: r/o GI bleeding, she is on Aspirin as an outpatient R> will need EGD and colonoscopy Pantoprazole 40mg daily Code(s): D64.9 - ANEMIA, UNSPECIFIED Qualifiers: Iron deficiency anemia type: other iron deficiency
[2020-01-22] MEDS: ATORVASTATIN CA 40 MG TABLET (FP) PO SCH (23:21)
[2020-01-23] MEDS: LEVOTHYROXINE NA 50 MCG TABLET (FP) PO SCH (06:01)
[2020-01-23 08:14] LABS: HEMOGLOBIN 9.2 GM/dL (10.7-15.3); MCHC 30.7 g/dl (32.0-36.0); MEAN CELL VOLUME 71.6 fl (80-96); MEAN PLT VOLUME 9.1 fl (7.5-11.1); PLATELET COUNT 370 K/MM3 (134-434); RBC 4.19 M/mm3 (3.60-5.2); RDW 30.8 % (11.6-15.6); WHITE BLOOD COUNT 12.9 K/mm3 (4.0-10.0)
[2020-01-23 08:45] LABS: ALBUMIN 3.2 g/dl (3.4-5.0); BLOOD UREA NITROGEN 5.7 mg/dL (7-18); CALCIUM 9.6 mg/dL (8.5-10.1); CREATININE 0.5 mg/dL (0.55-1.3); POTASSIUM 3.7 mmol/L (3.5-5.1); TOT PROT 7.2 g/dl (6.4-8.2)
--- NOTE | 2020-01-23 08:50 | PN ---
Progress Note, Physician Chief Complaint: AWAKE ALERT NAD - Current Medication List Current Medications: Active Medications Atorvastatin Calcium (Lipitor -) 40 mg PO HS [facility] Last Admin: 01/22/20 23:21 Dose: 40 mg Documented by: Furosemide (Lasix Injection -) 20 mg IVPUSH DAILY [facility] Last Admin: 01/22/20 09:20 Dose: 20 mg Documented by: Dextrose/Sodium Chloride (D5-Ns -) 1,000 mls @ 75 mls/hr IV ASDIR [facility] Last Admin: 01/22/20 19:11 Dose: 75 mls/hr Documented by: Levothyroxine Sodium (Synthroid -) 50 mcg PO DAILY@0700 [facility] Last Admin: 01/23/20 06:01 Dose: 50 mcg Documented by: Topiramate (Topamax -) 50 mg PO BID [facility] Last Admin: 01/22/20 23:21 Dose: 50 mg Documented by: - Objective Vital Signs: Vital Signs Temperature 98.5 F 01/23/20 00:59 Pulse Rate 83 01/23/20 05:00 Respiratory Rate 20 01/23/20 05:00 Blood Pressure 131/78 01/23/20 05:00 O2 Sat by Pulse Oximetry (%) 100 01/22/20 21:00 Constitutional: Yes: Mild Distress Cardiovascular: Yes: Regular Rate and Rhythm Respiratory: Yes: On Nasal O2 Gastrointestinal: Yes: Soft Genitourinary: Yes: Incontinence Musculoskeletal: Yes: Muscle Weakness Edema: No Integumentary: Yes: Other Wound/Incision: Yes: Clean/Dry Neurological: Yes: Pre-Existing Deficit ...Motor Strength: WNL Psychiatric: Yes: Other Labs: CBC, BMP 01/23/20 06:39 01/23/20 06:39 INR, PTT INR 1.09 (0.83-1.09) 01/21/20 17:00 Problem List - Problems (1) Encounter for screening laboratory testing for COVID-19 virus Code(s): Z11.59 - ENCOUNTER FOR SCREENING FOR OTHER VIRAL DISEASES (2) HLD (hyperlipidemia) Code(s): E78.5 - HYPERLIPIDEMIA, UNSPECIFIED (3) HTN (hypertension) Code(s): I10 - ESSENTIAL (PRIMARY) HYPERTENSION (4) Hypothyroidism Code(s): E03.9 - HYPOTHYROIDISM, UNSPECIFIED (5) Anemia Code(s): D64.9 - ANEMIA, UNSPECIFIED Qualifiers: Iron deficiency anemia type: other iron deficiency (6) Confusion Code(s): R41.0 - DISORIENTATION, UNSPECIFIED (7) Diabetes Code(s): E11.9 - TYPE 2 DIABETES MELLITUS WITHOUT COMPLICATIONS (8) Dizziness Code(s): R42 - DIZZINESS AND GIDDINESS (9) GI (gastrointestinal bleed) Code(s): K92.2 - GASTROINTESTINAL HEMORRHAGE, UNSPECIFIED Assessment/Plan TRANSFUSE PRBC CHECK CBC THEN NEXT TRANSFUSION WILL BE BASED ON THAT RESULT. GI EVAL IV FLUIDS PPI IV NPO MONITOR BGM FULL CODE
[2020-01-23] MEDS: FUROSEMIDE 40 MG/4 ML INJECTABLE VIAL IVPUSH SCH (09:18)
[2020-01-23] MEDS: TOPIRAMATE 25 MG TABLET PO SCH ×2 (09:19→22:23)
[2020-01-23 11:26] LABS: EPI CELLS 21 /uL (0-25.1); HYALINE CASTS 0 /uL (0-3.1); URINE APPEARANCE CLEAR; URINE BACTERIA >9,000 /uL (0-1359); URINE BILIRUBIN NEGATIVE (NEGATIVE); URINE COLOR YELLOW; URINE GLUCOSE (UA) NEGATIVE (NEGATIVE); URINE KETONE NEGATIVE (NEGATIVE); URINE LEUK ESTERASE 3+ (NEGATIVE); URINE NITRITE NEGATIVE (NEGATIVE); URINE PROTEIN NEGATIVE (NEGATIVE); URINE RBC 10 /uL (0-23.9); URINE UROBILINOGEN 0.2 mg/dL (0.2-1.0); URINE WBC 30 /uL (0-25.8)
[2020-01-23] MEDS ORDERED: POLYETHYLENE GLYCOL 3350 255 GM BTL PO ONE (13:00)
[2020-01-23] MEDS: DEXTROSE 5%-NORMAL SALINE 1,000 ML IV SCH (13:33)
[2020-01-23] MEDS: SODIUM PHOSPHATE/NA BIPHOS 133 ML ENEMA RC SCH (15:08)
[2020-01-23] MEDS ORDERED: BISACODYL 5 MG TABLET.DR (FP) PO ONE (16:00)
[2020-01-23] MEDS ORDERED: PT OWN MED DRAWER 7, Y5N ONE (21:10)
[2020-01-23] MEDS: ATORVASTATIN CA 40 MG TABLET (FP) PO SCH (22:23)
[2020-01-24] MEDS: LEVOTHYROXINE NA 50 MCG TABLET (FP) PO SCH (06:22)
[2020-01-24 07:40] LABS: HEMOGLOBIN 9.7 GM/dL (10.7-15.3); MCH 21.8 pg (25.7-33.7); MCHC 30.3 g/dl (32.0-36.0); MEAN CELL VOLUME 71.9 fl (80-96); MEAN PLT VOLUME 8.4 fl (7.5-11.1); PLATELET COUNT 389 K/MM3 (134-434); RBC 4.45 M/mm3 (3.60-5.2); RDW 32.6 % (11.6-15.6); WHITE BLOOD COUNT 14.2 K/mm3 (4.0-10.0)
[2020-01-24 08:08] LABS: ALBUMIN 3.2 g/dl (3.4-5.0); BILIRUBIN,TOTAL 0.8 mg/dL (0.2-1); CALCIUM 9.7 mg/dL (8.5-10.1); CREATININE 0.6 mg/dL (0.55-1.3); POTASSIUM 3.5 mmol/L (3.5-5.1); TOT PROT 7.2 g/dl (6.4-8.2)
--- NOTE | 2020-01-24 08:09 | PN ---
Progress Note, Physician - Current Medication List Current Medications: Active Medications Atorvastatin Calcium (Lipitor -) 40 mg PO HS [facility] Last Admin: 01/23/20 22:23 Dose: 40 mg Documented by: Furosemide (Lasix Injection -) 20 mg IVPUSH DAILY [facility] Last Admin: 01/23/20 09:18 Dose: 20 mg Documented by: Dextrose/Sodium Chloride (D5-Ns -) 1,000 mls @ 75 mls/hr IV ASDIR [facility] Last Admin: 01/23/20 13:33 Dose: 75 mls/hr Documented by: Levothyroxine Sodium (Synthroid -) 50 mcg PO DAILY@0700 [facility] Last Admin: 01/24/20 06:22 Dose: Not Given Documented by: Topiramate (Topamax -) 50 mg PO BID [facility] Last Admin: 01/23/20 22:23 Dose: 50 mg Documented by: - Objective Vital Signs: Vital Signs Temperature 98.4 F 01/24/20 02:00 Pulse Rate 81 01/24/20 06:00 Respiratory Rate 20 01/24/20 06:00 Blood Pressure 112/64 01/24/20 06:00 O2 Sat by Pulse Oximetry (%) 96 01/24/20 02:00 Cardiovascular: Yes: Regular Rate and Rhythm Respiratory: Yes: Regular, CTA Bilaterally Gastrointestinal: Yes: Normal Bowel Sounds, Soft. No: Tenderness Edema: No Labs: CBC, BMP 01/24/20 05:40 INR, PTT INR 1.09 (0.83-1.09) 01/21/20 17:00 Problem List - Problems (1) Anemia Assessment/Plan: Hgb 4.1---9.2 PRBCs x2 ordered in ED Monitor CBC closely Appreciate GI consult will need egd and colon PPI Monitor CBC Code(s): D64.9 - ANEMIA, UNSPECIFIED Qualifiers: Anemia type: iron deficiency Iron deficiency anemia type: other iron deficiency Qualified Code(s): D50.8 - Other iron deficiency anemias (2) GI (gastrointestinal bleed) Assessment/Plan: as above Code(s): K92.2 - GASTROINTESTINAL HEMORRHAGE, UNSPECIFIED Qualifiers: GI bleed type/associated pathology: unspecified gastrointestinal hemorrhage type Qualified Code(s): K92.2 - Gastrointestinal hemorrhage, unspecified (3) HTN (hypertension) Assessment/Plan: stable Monitor BP Vital Signs Period Temp Pulse Resp BP Sys/Daniels Pulse Ox Last 24 Hr 98.1 F-98.4 F 71-81 20-20 112-132/61-66 95-96 Code(s): I10 - ESSENTIAL (PRIMARY) HYPERTENSION (4) Diabetes Assessment/Plan: stable BGMs ISS Hold secondary to NPO Code(s): E11.9 - TYPE 2 DIABETES MELLITUS WITHOUT COMPLICATIONS
[2020-01-24] MEDS: FUROSEMIDE 40 MG/4 ML INJECTABLE VIAL IVPUSH SCH (10:58)
[2020-01-24] MEDS: TOPIRAMATE 25 MG TABLET PO SCH ×2 (10:58→21:11)
--- NOTE | 2020-01-24 13:38 | PN ---
Progress Note (short form) - Note Progress Note: EGD/Colon complete. Report left in the procedural section of the physical chart and will be scanned into [employer]
[2020-01-24] MEDS: DEXTROSE 5%-NORMAL SALINE 1,000 ML IV SCH (16:35)
[2020-01-24] MEDS: PANTOPRAZOLE 20 MG TABLET PO SCH (16:35)
[2020-01-24] MEDS ORDERED: PT OWN MED DRAWER 7, Y5N ONE (20:53)
[2020-01-24] MEDS: ATORVASTATIN CA 40 MG TABLET (FP) PO SCH (21:11)
[2020-01-24] MEDS ORDERED: ACETAMINOPHEN 325 MG TABLET (FP) PO PRN (21:51)
[2020-01-25] MEDS: LEVOTHYROXINE NA 50 MCG TABLET (FP) PO SCH (06:42)
--- NOTE | 2020-01-25 08:28 | PN ---
Progress Note, Physician - Current Medication List Current Medications: Active Medications Acetaminophen (Tylenol -) 650 mg PO Q6H PRN PRN Reason: PAIN LEVEL 4 - 6 Last Admin: 01/24/20 23:06 Dose: 650 mg Documented by: Atorvastatin Calcium (Lipitor -) 40 mg PO HS [facility] Last Admin: 01/24/20 21:11 Dose: 40 mg Documented by: Furosemide (Lasix -) 20 mg PO DAILY [facility] Levothyroxine Sodium (Synthroid -) 50 mcg PO DAILY@0700 [facility] Last Admin: 01/25/20 06:42 Dose: 50 mcg Documented by: Pantoprazole Sodium (Protonix -) 20 mg PO DAILY [facility] Last Admin: 01/24/20 16:35 Dose: 20 mg Documented by: Topiramate (Topamax -) 50 mg PO BID [facility] Last Admin: 01/24/20 21:11 Dose: 50 mg Documented by: - Objective Vital Signs: Vital Signs Temperature 98.8 F 01/25/20 05:37 Pulse Rate 66 01/25/20 05:37 Respiratory Rate 18 01/25/20 05:37 Blood Pressure 108/62 01/25/20 05:37 O2 Sat by Pulse Oximetry (%) 98 01/25/20 05:37 Cardiovascular: Yes: Regular Rate and Rhythm Respiratory: Yes: Regular, CTA Bilaterally Gastrointestinal: Yes: Normal Bowel Sounds, Soft. No: Tenderness Labs: CBC, BMP 01/24/20 05:40 01/24/20 05:40 INR, PTT INR 1.09 (0.83-1.09) 01/21/20 17:00 Problem List - Problems (1) Anemia Assessment/Plan: Hgb 4.1---9.2-9.7 PRBCs x2 ordered in ED Monitor CBC closely Appreciate GI consult EGD AND COLON NOTED--POLYPS IN STOMACH PPI Monitor CBC HEM CONSULT Code(s): D64.9 - ANEMIA, UNSPECIFIED Qualifiers: Anemia type: iron deficiency Iron deficiency anemia type: other iron deficiency Qualified Code(s): D50.8 - Other iron deficiency anemias (2) GI (gastrointestinal bleed) Assessment/Plan: as above Code(s): K92.2 - GASTROINTESTINAL HEMORRHAGE, UNSPECIFIED Qualifiers: GI bleed type/associated pathology: unspecified gastrointestinal hemorrhage type Qualified Code(s): K92.2 - Gastrointestinal hemorrhage, unspecified (3) HTN (hypertension) Assessment/Plan: stable Monitor BP Vital Signs Period Temp Pulse Resp BP Sys/Daniels Pulse Ox Last 24 Hr 98.1 F-98.4 F 71-81 20-20 112-132/61-66 95-96 Code(s): I10 - ESSENTIAL (PRIMARY) HYPERTENSION (4) Diabetes Assessment/Plan: stable BGMs ISS Hold secondary to NPO Code(s): E11.9 - TYPE 2 DIABETES MELLITUS WITHOUT COMPLICATIONS Assessment/Plan PT
[2020-01-25] MEDS ORDERED: PT OWN MED DRAWER 7, Y5N ONE ×2 (09:40→21:55)
[2020-01-25] MEDS: FUROSEMIDE 20 MG TABLET (FP) PO SCH (09:48)
[2020-01-25] MEDS: PANTOPRAZOLE 20 MG TABLET PO SCH (09:48)
[2020-01-25] MEDS: TOPIRAMATE 25 MG TABLET PO SCH ×2 (09:48→21:58)
--- NOTE | 2020-01-25 14:54 | CONSULT ---
Consultation: REQUESTING PROVIDER:Dr. Shah CONSULT REQUEST: We have been asked to medically evaluate this patient for leukocytosis. HISTORY OF PRESENT ILLNESS: Patient is a 69 year old female with past medical history of SRIDEVI, hemorrhoids, cerebral infarction, epilepsy, seizures, COPD, DM, HTN, HLD, hypothyroidism, Dysphagia, OA, presented to the ED from [facility] after she was noted to be anemic. Patient reported BRBPR, and underwent EGD/colonoscopy. We were consulted for further evaluation of leukocytosis. Of note, patient has had persistent leukocytosis since 2015 as per her medical records (baseline WBC 10- 14). On those previous admissions, patient was treated for pneumonia, but still had elevated white count even after completing treatment. Patient denies any previous work-up, she is unaware of any disorders in her wbc. Patient denies any fevers, chills, headache, dizziness, chest pain, SOB, abdominal pain, diarrhea, urinary symptoms. PMHx: SRIDEVI, hemorrhoids, cerebral infarction, epilepsy, seizures, COPD, DM, HTN, HLD, hypothyroidism, Dysphagia, OA PSHx: thyroidectomy Allergies: NKDA FHx:no family hx of blood disorders or cancer SHx: denies smoking, drinking, illicit drug use REVIEW OF SYSTEMS: CONSTITUTIONAL: Absent: fever, chills, diaphoresis, generalized weakness, malaise, loss of appetite, weight change HEENT: Absent: rhinorrhea, nasal congestion, throat pain, throat swelling, difficulty swallowing, mouth swelling, ear pain, eye pain, visual changes CARDIOVASCULAR: Absent: chest pain, syncope, palpitations, irregular heart rate, lightheadedness, peripheral edema RESPIRATORY: Absent: cough, shortness of breath, dyspnea with exertion, orthopnea, wheezing, stridor, hemoptysis GASTROINTESTINAL: Absent: abdominal pain, abdominal distension, nausea, vomiting, diarrhea, constipation, melena, hematochezia GENITOURINARY: Absent: dysuria, frequency, urgency, hesitancy, hematuria, flank pain, genital pain MUSCULOSKELETAL: Absent: myalgia, arthralgia, joint swelling, back pain, neck pain SKIN: Absent: rash, itching, pallor HEMATOLOGIC/IMMUNOLOGIC: Absent: easy bleeding, easy bruising, lymphadenopathy, frequent infections ENDOCRINE: Absent: unexplained weight gain, unexplained weight loss, heat intolerance, cold intolerance NEUROLOGIC: Absent: headache, focal weakness or paresthesias, dizziness, unsteady gait, seizure, mental status changes, bladder or bowel incontinence PSYCHIATRIC: Absent: anxiety, depression, suicidal or homicidal ideation, hallucinations. PHYSICAL EXAMINATION Vital Signs - 24 hr 01/24/20 01/24/20 01/24/20 14:34 18:02 20:01 Temperature 98.8 F 98.9 F 98.2 F Pulse Rate 89 92 H 82 Respiratory 20 20 18 Rate Blood Pressure 121/73 131/60 116/48 L O2 Sat by Pulse 96 95 Oximetry (%) 01/24/20 01/25/20 01/25/20 21:00 02:00 05:37 Temperature 98.3 F 98.8 F Pulse Rate 69 66 Respiratory 20 18 Rate Blood Pressure 103/56 L 108/62 O2 Sat by Pulse 95 98 Oximetry (%) 01/25/20 01/25/20 09:00 10:00 Temperature 98 F Pulse Rate 67 Respiratory 18 Rate Blood Pressure 104/57 L O2 Sat by Pulse 97 97 Oximetry (%) GENERAL: Awake, alert, and fully oriented, in no acute distress. EYES:PERRLA, EOMI, sclera anicteric, conjunctiva clear. EARS, NOSE, THROAT: Moist mucous membranes. NECK: Normal range of motion, supple LUNGS: decreased breath sounds on bilateral bases HEART: Regular rate and rhythm, normal S1 and S2 ABDOMEN: Soft, nontender, not distended, normoactive bowel sounds LOWER EXTREMITIES: 2+ pulses, warm, well-perfused. No calf tenderness. No peripheral edema. NEUROLOGICAL: Cranial nerves II-XII grossly intact. Normal speech. PSYCHIATRIC: Cooperative. Good eye contact. Appropriate mood and affect. SKIN: Warm, dry, normal turgor Laboratory Results - last 24 hr 01/21/20 01/25/20 17:13 07:40 TSH 1.81 Blood Type AB NEGATIVE Antibody Screen Negative Crossmatch See Detail Active Medications Generic Name Dose Route Start Last Admin Trade Name Freq PRN Reason Stop Dose Admin Acetaminophen 650 mg 01/24/20 21:51 01/24/20 23:06 Tylenol - PO 650 mg Q6H PRN Administration PAIN LEVEL 4 - 6 Atorvastatin Calcium 40 mg 01/21/20 22:00 01/24/20 21:11 Lipitor - PO 40 mg HS YOSELYN Administration Furosemide 20 mg 01/25/20 10:00 01/25/20 09:48 Lasix - PO 20 mg DAILY YOSELYN Administration Levothyroxine Sodium 50 mcg 01/22/20 07:00 01/25/20 06:42 Synthroid - PO 50 mcg DAILY@0700 YOSELYN Administration Pantoprazole Sodium 20 mg 01/24/20 14:15 01/25/20 09:48 Protonix - PO 20 mg DAILY YOSELYN Administration Topiramate 50 mg 01/21/20 22:00 01/25/20 09:48 Topamax - PO 50 mg BID YOSELYN Administration ASSESSMENT/PLAN: Patient is a 69 year old female with past medical history of SRIDEVI, hemorrhoids, cerebral infarction, epilepsy, seizures, COPD, DM, HTN, HLD, hypothyroidism, D ysphagia, OA, presented to the ED from [facility] after she was noted to be anemic, reported BRBPR. We were consulted for further evaluation of leukocytosis. #Leukocytosis -unclear etiology at this time -may be reactive 2/2 gi bleed, ?stress, no active signs of infection, ?obesity -will rule out heme pathologies -- flow cytometry/FISH/cytogenetics ordered #Anemia -MCV 71, Hgb 7.9 -likely iron deficiency anemia -iron studies in 2017 revealed low iron, TSAT 4%, Ferritin of 6.5 -received 3u prbc during this admission -would benefit from IV iron or PO iron supplementation -monitor cbc and transfuse prn to keep Hgb >7 Dispo: We will continue to follow the patient. Thank you for this consultative opportunity. Visit type - Medication Review Med list reviewed for High Risk Meds patients 65 and older: Yes - Emergency Visit Emergency Visit: Yes ED Registration Date: 01/21/20 Care time: The patient presented to the Emergency Department on the above date and was hospitalized for further evaluation of their emergent condition. - New Patient This patient is new to me today: Yes Date on this admission: 01/25/20 - Critical Care Critical Care patient: No ATTENDING PHYSICIAN STATEMENT I saw and evaluated the patient. I reviewed the resident's note and discussed the case with the resident. I agree with the resident's findings and plan as documented. SUBJECTIVE: OBJECTIVE: ASSESSMENT AND PLAN:
--- NOTE | 2020-01-25 16:52 | PN ---
Teaching Attending Note Name of Resident: Aleyda Serrano ATTENDING PHYSICIAN STATEMENT I saw and evaluated the patient. I reviewed the resident's note and discussed the case with the resident. I agree with the resident's findings and plan as documented. ASSESSMENT AND PLAN: 69 year old lady with past medical history of SRIDEVI, hemorrhoids, cerebral infarction, epilepsy, seizures, COPD, DM, HTN, HLD, hypothyroidism, Dysphagia, OA, presented to the ED from [facility] after she was noted to be anemic, reported BRBPR. We were consulted for further evaluation of leukocytosis. Recommend: 1) Likely reactive leukocytosis (neutrophilia) with multiple stress factors. Nevertheless given prior elevated WBC counts will obtain Flow Cytometry of peripheral blood/FISH/Cytogenetics to r/o primary hematologic disorder. 2) Rest per Dr. Serrano note 3) Thank you for this consultation
[2020-01-25] MEDS: ATORVASTATIN CA 40 MG TABLET (FP) PO SCH (21:57)
[2020-01-26] MEDS: LEVOTHYROXINE NA 50 MCG TABLET (FP) PO SCH (06:07)
[2020-01-26 06:56] LABS: BASO % 0.9 % (0-2.0); EOS % 3.4 % (0-4.5); HEMATOCRIT 29.3 % (32.4-45.2); HEMOGLOBIN 8.9 GM/dL (10.7-15.3); MCH 21.9 pg (25.7-33.7); MCHC 30.3 g/dl (32.0-36.0); MEAN CELL VOLUME 72.5 fl (80-96); MEAN PLT VOLUME 8.5 fl (7.5-11.1); MONO % 6.5 % (3.8-10.2); NEUT % 64.2 % (42.8-82.8); PLATELET COUNT 344 K/MM3 (134-434); RBC 4.04 M/mm3 (3.60-5.2); RDW 33.1 % (11.6-15.6)
[2020-01-26 07:16] LABS: ALBUMIN 2.8 g/dl (3.4-5.0); BILIRUBIN,TOTAL 0.7 mg/dL (0.2-1); CALCIUM 9.2 mg/dL (8.5-10.1); CREATININE 0.5 mg/dL (0.55-1.3); POTASSIUM 3.3 mmol/L (3.5-5.1); TOT PROT 6.4 g/dl (6.4-8.2)
[2020-01-26] MEDS ORDERED: POTASSIUM CHLORIDE TABS 10 MEQ TABLET.ER (FP) PO ONE (07:39)
[2020-01-26] MEDS ORDERED: PT OWN MED DRAWER 7, Y5N ONE (09:14)
[2020-01-26] MEDS ORDERED: MECLIZINE HCL 12.5 MG TABLET PO PRN (09:23)
--- NOTE | 2020-01-26 09:24 | DS ---
Physical Examination Vital Signs: Vital Signs Temperature 97.9 F 01/26/20 05:40 Pulse Rate 74 01/26/20 05:40 Respiratory Rate 20 01/26/20 05:40 Blood Pressure 109/58 L 01/26/20 05:40 O2 Sat by Pulse Oximetry (%) 94 L 01/26/20 05:40 Cardiovascular: Yes: Regular Rate and Rhythm Respiratory: Yes: Regular, CTA Bilaterally Gastrointestinal: Yes: Normal Bowel Sounds, Soft Neurological: Yes: Alert, Oriented Labs: CBC, BMP 01/26/20 06:16 01/26/20 06:16 Discharge Summary Problems reviewed: Yes Reason For Visit: GASTROINTESTINAL HEMORRHAGE,MICROCYTIC ANEMIA Current Active Problems Anemia (Acute) Encounter for screening laboratory testing for COVID-19 virus (Acute) GI (gastrointestinal bleed) (Acute) HLD (hyperlipidemia) (Acute) HTN (hypertension) (Acute) Hypothyroidism (Acute) Hospital Course: Problems (1) Anemia Assessment/Plan: Hgb 4.1---9.2-9.7 PRBCs x2 ordered in ED Monitor CBC closely Appreciate GI consult EGD AND COLON NOTED--POLYPS IN STOMACH PPI Monitor CBC HEM CONSULT Code(s): D64.9 - ANEMIA, UNSPECIFIED Qualifiers: Anemia type: iron deficiency Iron deficiency anemia type: other iron deficiency Qualified Code(s): D50.8 - Other iron deficiency anemias (2) GI (gastrointestinal bleed) Assessment/Plan: as above Code(s): K92.2 - GASTROINTESTINAL HEMORRHAGE, UNSPECIFIED Qualifiers: GI bleed type/associated pathology: unspecified gastrointestinal hemorrhage type Qualified Code(s): K92.2 - Gastrointestinal hemorrhage, unspecified (3) HTN (hypertension) Assessment/Plan: stable Monitor BP Vital Signs Period Temp Pulse Resp BP Sys/Daniels Pulse Ox Last 24 Hr 98.1 F-98.4 F 71-81 20-20 112-132/61-66 95-96 Code(s): I10 - ESSENTIAL (PRIMARY) HYPERTENSION (4) Diabetes Assessment/Plan: stable BGMs ISS Hold Januvia secondary to NPO Code(s): E11.9 - TYPE 2 DIABETES MELLITUS WITHOUT COMPLICATIONS (5) Dizziness Assessment/Plan: maybe vertigo resume antivert if labs ok dc to [facility] Condition: Improved - Instructions Diet, Activity, Other Instructions: cbc and bmp on friday then every friday Referrals: Omar Shah MD [Primary Care Provider] - - Home Medications Comprehensive Discharge Medication List: Ambulatory Orders Atorvastatin Ca [Lipitor] 40 mg PO HS tablet 07/26/19 Acetaminophen [Tylenol .Extra-Strength -] 650 mg PO Q8H PRN 01/21/20 Levothyroxine [Synthroid -] 50 mcg PO DAILY@0700 01/21/20 Meclizine HCl [Antivert -] 12.5 mg PO TID PRN 01/21/20 Topiramate [Topamax -] 25 mg PO BID 01/21/20 Furosemide [Lasix -] 20 mg PO DAILY tablet 01/26/20 Pantoprazole Sodium [Protonix -] 20 mg PO DAILY tablet.ec 01/26/20 Potassium Chloride [K-Dur -] 10 meq PO DAILY tablet.er 01/26/20
[2020-01-26 10:53] LABS: ANISOCYTOSIS 3+; MACROCYTOSIS 0; PLATELET ESTIMATE NORMAL; TARGET CELLS 1+
[2020-01-26] MEDS: TOPIRAMATE 25 MG TABLET PO SCH ×2 (11:20→22:02)
[2020-01-26] MEDS: PANTOPRAZOLE 20 MG TABLET PO SCH (11:20)
[2020-01-26] MEDS: FUROSEMIDE 20 MG TABLET (FP) PO SCH (11:20)
--- NOTE | 2020-01-26 13:10 | EKG ---
Test Reason : Blood Pressure : / mmHG Vent. Rate : 065 BPM Atrial Rate : 065 BPM P-R Int : 172 ms QRS Dur : 098 ms QT Int : 404 ms P-R-T Axes : 045 -15 023 degrees QTc Int : 420 ms NORMAL SINUS RHYTHM INFERIOR INFARCT , AGE UNDETERMINED ABNORMAL ECG Confirmed by MD DENNIS, NAZ ([id number]) on 01/26/2020 1:10:02 PM Referred By: Pavel HERNANDEZ Confirmed By:NAZ COLLINS MD
--- NOTE | 2020-01-26 15:35 | PATH ---
Surgical Pathology Report Patient Name: PASQUALE ROSENBERG [facility]. Rec. #: [id number] /Age/Gender: 1950 (Age: 69) / F Account: [id number] Location: 4 TELEMETRY U Taken: 01/24/2020 Received: 01/25/2020 Reported: 01/26/2020 Physicians: Orlando Vides M.D. Specimen(s) Received A: PYLORIC FOLD B: GASTRIC POLYP Clinical History Iron deficiency anemia Postoperative diagnosis: Hemorrhoids, gastritis Final Diagnosis A. PYLORIC FOLD, BIOPSY: GASTRIC MUCOSA WITH CHRONIC GASTRITIS AND REACTIVE GASTROPATHY. IMMUNOSTAIN FOR H. PYLORI IS NEGATIVE. NEGATIVE FOR INTESTINAL METAPLASIA. B. GASTRIC POLYP, BIOPSY: FUNDIC GLAND POLYP. IMMUNOSTAIN FOR H. PYLORI IS NEGATIVE. NEGATIVE FOR INTESTINAL METAPLASIA. Electronically Signed Esthela Bojorquez M.D. Gross Description A. Received in formalin, labeled "biopsy pyloric fold" are 3 mazariegos, irregular portions of soft tissue averaging 0.2 cm. in greatest dimension. The specimens are submitted in toto in one cassette. B. Received in formalin, labeled "biopsy gastric polyp" are 2 mazariegos, irregular portions of soft tissue measuring 0.2 and 0.3 cm. in greatest dimension. The specimens are submitted in toto in one cassette. /01/25/2020 saudi01/25/2020
--- NOTE | 2020-01-26 15:42 | PATH ---
Surgical Pathology Report Patient Name: PASQUALE ROSENBERG [facility]. Rec. #: [id number] /Age/Gender: 1950 (Age: 69) / F Account: [id number] Location: 4 TELEMETRY U Taken: 01/25/2020 Received: 01/25/2020 Reported: 01/26/2020 Physicians: Omar Shah M.D. Specimen(s) Received PERIPHERAL BLOOD Clinical History Persistent leukocytosis Final Diagnosis COMPREHENSIVE FLOW CYTOMETRY performed and interpreted at [place], [place] ([id number]) INTERPRETATION: LOW-LEVEL LIGHT CHAIN-RESTRICTED B-CELL POPULATION. SEE COMMENT. Comment: The presence of a low-level light-chain restricted B-cell population may represent indolent monoclonal B-cell lymphocytosis or possibly minimal involvement by a systemic B-cell lymphoproliferative disorder. Correlate with clinical history and other laboratory testing for further evaluation. FISH and cytogenetics pending, findings will separately. See [facility] report for additional details. Report faxed and findings discussed with Dr. Goode, 01/26/20. Electronically Signed Evon Novak M.D. Addendum Reported: 01/28/2020 Addendum Diagnosis HEMATOLOGIC FISH report performed and interpreted at [place], [place] ([id number]) shows the following: INTERPRETATION: No CCND1/IGH t(11;14) translocation is detected. See Pathline report for additional details. Evon Novak M.D. Addendum Reported: 02/01/2020 Addendum Diagnosis CYTOGENETIC KARYOTYPE ANALYSIS performed and interpreted at [place], [place] ([id number]) TEST RESULTS: Tissue Culture Failure. DIAGNOSTIC INTERPRETATION: This unstimulated peripheral blood specimen did not produce any analyzable metaphase cells and, therefore, chromosome analysis is not possible. A bone marrow aspirate, when clinically appropriate, is recommended. See Pathline report for additional details. Evon Novak M.D. Gross Description Received are 4 green top tubes and 2 purple top tubes of peripheral blood which is sent to [facility]. DL/01/25/2020 saudi/01/25/2020
[2020-01-26 16:49] LABS: BASO % 0.6 % (0-2.0); EOS % 3.1 % (0-4.5); HEMATOCRIT 28.9 % (32.4-45.2); HEMOGLOBIN 8.6 GM/dL (10.7-15.3); LYMPH % 16.1 % (8-40); MCH 21.3 pg (25.7-33.7); MCHC 29.7 g/dl (32.0-36.0); MEAN CELL VOLUME 71.7 fl (80-96); MEAN PLT VOLUME 8.7 fl (7.5-11.1); NEUT % 72.2 % (42.8-82.8); PLATELET COUNT 359 K/MM3 (134-434); RBC 4.04 M/mm3 (3.60-5.2); RDW 33.4 % (11.6-15.6); WHITE BLOOD COUNT 13.9 K/mm3 (4.0-10.0)
[2020-01-26 17:14] LABS: PLATELET ESTIMATE ADEQUATE
[2020-01-26 17:15] LABS: ADD RBC MORPHOLOGY YES
[2020-01-26 17:22] LABS: ALBUMIN 2.9 g/dl (3.4-5.0); ALK PHOS 86 U/L (45-117); ANION GAP 7 MMOL/L (8-16); BILIRUBIN,TOTAL 0.4 mg/dL (0.2-1); BLOOD UREA NITROGEN 8.4 mg/dL (7-18); CALCIUM 9.4 mg/dL (8.5-10.1); CHLORIDE 109 mmol/L (98-107); CO2 27 mmol/L (21-32); CREATININE 0.5 mg/dL (0.55-1.3); GLUCOSE,RANDOM 92 mg/dL (74-106); POTASSIUM 3.5 mmol/L (3.5-5.1); SGOT/AST 8 U/L (15-37); SGPT/ALT 11 U/L (13-61); SODIUM 143 mmol/L (136-145); TOT PROT 6.7 g/dl (6.4-8.2)
[2020-01-26] MEDS: ATORVASTATIN CA 40 MG TABLET (FP) PO SCH (22:02)
--- NOTE | 2020-01-26 22:52 | PN.HO ---
Progress Note (short form) - Note Progress Note: PAtient seen and examined Denies any complaints AFVSS Cor: RSR, No murmurs, No gallops Lungs: Clear to P&A Abd: Soft, Normal bowel sounds, No organomegaly Ext:No significant edema Labs/MEds reviewed A/P 69 year old lady with past medical history of Iron deficiency anemia, hemorrhoids, cerebral infarction, epilepsy, seizures, COPD, DM, HTN, HLD, hypothyroidism, Dysphagia, OA, presented to the ED from [facility] after she was noted to be anemic, reported BRBPR. We were consulted for further evaluation of leukocytosis. Leukocytosis : preliminary flow suggestive of monoclonal B cell poplation Neutrophilia aswell --- will check SADAF 2 / bcr;abl f/u cytogenetics/FISH disucssed with [atient NEeds hematology follow up outpatient
[2020-01-27] MEDS: LEVOTHYROXINE NA 50 MCG TABLET (FP) PO SCH (06:03)
[2020-01-27 06:54] LABS: BASO % 0.4 % (0-2.0); EOS % 3.8 % (0-4.5); HEMATOCRIT 30.4 % (32.4-45.2); HEMOGLOBIN 8.9 GM/dL (10.7-15.3); LYMPH % 19.3 % (8-40); MCH 21.4 pg (25.7-33.7); MCHC 29.4 g/dl (32.0-36.0); MEAN CELL VOLUME 72.8 fl (80-96); MEAN PLT VOLUME 8.7 fl (7.5-11.1); MONO % 5.8 % (3.8-10.2); NEUT % 70.7 % (42.8-82.8); PLATELET COUNT 368 K/MM3 (134-434); RBC 4.17 M/mm3 (3.60-5.2); RDW 33.1 % (11.6-15.6); WHITE BLOOD COUNT 13.3 K/mm3 (4.0-10.0)
--- NOTE | 2020-01-27 08:05 | DS ---
Physical Examination Vital Signs: Vital Signs Temperature 98.1 F 01/27/20 05:34 Pulse Rate 81 01/27/20 05:34 Respiratory Rate 20 01/27/20 05:34 Blood Pressure 118/70 01/27/20 05:34 O2 Sat by Pulse Oximetry (%) 96 01/26/20 21:45 Cardiovascular: Yes: Regular Rate and Rhythm Respiratory: Yes: Regular, CTA Bilaterally Gastrointestinal: Yes: Normal Bowel Sounds, Soft. No: Tenderness Labs: CBC, BMP 01/26/20 16:00 Discharge Summary Problems reviewed: Yes Reason For Visit: GASTROINTESTINAL HEMORRHAGE,MICROCYTIC ANEMIA Current Active Problems Anemia (Acute) Encounter for screening laboratory testing for COVID-19 virus (Acute) GI (gastrointestinal bleed) (Acute) HLD (hyperlipidemia) (Acute) HTN (hypertension) (Acute) Hypothyroidism (Acute) Hospital Course: Problems (1) Anemia Assessment/Plan: Hgb 4.1---9.2-9.7 PRBCs x2 ordered in ED Monitor CBC closely Appreciate GI consult EGD AND COLON NOTED--POLYPS IN STOMACH PPI Monitor CBC HEM CONSULT noted---will need outpatient follow up Code(s): D64.9 - ANEMIA, UNSPECIFIED Qualifiers: Anemia type: iron deficiency Iron deficiency anemia type: other iron deficiency Qualified Code(s): D50.8 - Other iron deficiency anemias (2) GI (gastrointestinal bleed) Assessment/Plan: as above Code(s): K92.2 - GASTROINTESTINAL HEMORRHAGE, UNSPECIFIED Qualifiers: GI bleed type/associated pathology: unspecified gastrointestinal hemorrhage type Qualified Code(s): K92.2 - Gastrointestinal hemorrhage, unspecified (3) HTN (hypertension) Assessment/Plan: stable Monitor BP Vital Signs Period Temp Pulse Resp BP Sys/Daniels Pulse Ox Last 24 Hr 98.1 F-98.4 F 71-81 20-20 112-132/61-66 95-96 Code(s): I10 - ESSENTIAL (PRIMARY) HYPERTENSION (4) Diabetes Assessment/Plan: stable BGMs ISS Hold Januvia secondary to NPO Code(s): E11.9 - TYPE 2 DIABETES MELLITUS WITHOUT COMPLICATIONS (5) Dizziness Assessment/Plan: maybe vertigo resume antivert dc to [facility] Condition: Improved - Instructions Diet, Activity, Other Instructions: cbc and bmp on friday then every friday Referrals: Omar Shah MD [Primary Care Provider] - Rod Al MD [Staff Physician] - 2 Weeks - Home Medications Comprehensive Discharge Medication List: Ambulatory Orders Atorvastatin Ca [Lipitor] 40 mg PO HS tablet 07/26/19 Acetaminophen [Tylenol .Extra-Strength -] 650 mg PO Q8H PRN 01/21/20 Levothyroxine [Synthroid -] 50 mcg PO DAILY@0700 01/21/20 Meclizine HCl [Antivert -] 12.5 mg PO TID PRN 01/21/20 Topiramate [Topamax -] 25 mg PO BID 01/21/20 Furosemide [Lasix -] 20 mg PO DAILY tablet 01/26/20 Pantoprazole Sodium [Protonix -] 20 mg PO DAILY tablet.ec 01/26/20 Potassium Chloride [K-Dur -] 10 meq PO DAILY tablet.er 01/26/20
[2020-01-27] MEDS: FUROSEMIDE 20 MG TABLET (FP) PO SCH (09:07)
[2020-01-27] MEDS: PANTOPRAZOLE 20 MG TABLET PO SCH (09:07)
[2020-01-27] MEDS: TOPIRAMATE 25 MG TABLET PO SCH (09:07)
[2020-01-27] MEDS ORDERED: POTASSIUM CHLORIDE TABS 10 MEQ TABLET.ER (FP) PO SCH (10:00)
[2020-01-27] MEDS ORDERED: CIPROFLOXACIN 250 MG TABLET (RESTRICTED TO ID) PO SCH (10:00)
[2020-01-27 11:45] VITALS: BP 122/72; PULSE 88; TEMP 98.9
== END 2020-01-27 11:24 | DRG 812 ==
LOC: JER 15:56 → SUPCPDRO 15:56 → JERBED 18:20 → J4W 01-22 03:47
PROVIDERS: ADMIT Internal Medicine; ATTEND Family Medicine
PROC: 30233N1 Transfusion of Nonautologous Red Blood Cells into Peripheral Vein, Percutaneous Approach (ICD-10-PCS; 2020-01-21)
PROC: 0DJD8ZZ Inspection of Lower Intestinal Tract, Via Natural or Artificial Opening Endoscopic (ICD-10-PCS; 2020-01-24)
PROC: 0DB68ZX Excision of Stomach, Via Natural or Artificial Opening Endoscopic, Diagnostic (ICD-10-PCS; principal; 2020-01-24 12:45)
DX: D50.8 Other iron deficiency anemias (principal); K92.2 Gastrointestinal hemorrhage, unspecified; E11.9 Type 2 diabetes mellitus without complications; E78.5 Hyperlipidemia, unspecified; I25.2 Old myocardial infarction; J44.9 Chronic obstructive pulmonary disease, unspecified; M17.0 Bilateral primary osteoarthritis of knee; R56.9 Unspecified convulsions; E03.9 Hypothyroidism, unspecified; K31.7 Polyp of stomach and duodenum; R42 Dizziness and giddiness; D72.829 Elevated white blood cell count, unspecified; K44.9 Diaphragmatic hernia without obstruction or gangrene; K64.8 Other hemorrhoids; D72.0 Genetic anomalies of leukocytes; I69.391 Dysphagia following cerebral infarction; E66.9 Obesity, unspecified; Z68.33 Body mass index [BMI] 33.0-33.9, adult; Z11.59 Encounter for screening for other viral diseases
CPT/HCPCS: 36415; 36430; 36511; 71045-TC-FY; 80053; 81003; 82272; 82550; 84443; 84484; 85025; 85027; 85610; 85730; 86850; 86900; 86901; 86922; 88300-TC; 88305-TC; 93005; 93010; 97116-GP; 97161-GP; 99285-25; P9038; P9058; U0003

== ENCOUNTER 2020-05-24 20:18 | Inpatient (IN) | payer OTHER ==
[2020-05-24 22:03] LABS: BASO % 0.7 % (0-2.0); EOS % 2.1 % (0-4.5); HEMATOCRIT 20.6 % (32.4-45.2); LYMPH % 25.5 % (8-40); MCHC 27.8 g/dl (32.0-36.0); MEAN CELL VOLUME 58.3 fl (80-96); MEAN PLT VOLUME 9.1 fl (7.5-11.1); MONO % 7.4 % (3.8-10.2); NEUT % 64.3 % (42.8-82.8); PLATELET COUNT 507 K/MM3 (134-434); RBC 3.53 M/mm3 (3.60-5.2); RDW 22.6 % (11.6-15.6); WHITE BLOOD COUNT 11.1 K/mm3 (4.0-10.0)
[2020-05-24 22:12] LABS: INR 1.14 (0.83-1.09); PROTHROMBIN TIME (PATIENT) 13.7 SEC (9.7-13.0)
[2020-05-24 22:15] LABS: ACTIVATED PTT 27.7 SECONDS (25.2-36.5)
[2020-05-24 22:16] LABS: CHLORIDE 105 mmol/L (98-107); SODIUM 142 mmol/L (136-145)
[2020-05-24 22:18] LABS: ANION GAP 9 MMOL/L (8-16); BLOOD UREA NITROGEN 12.5 mg/dL (7-18); CALCIUM 9.3 mg/dL (8.5-10.1); CO2 29 mmol/L (21-32); GLUCOSE,RANDOM 98 mg/dL (74-106)
[2020-05-24 22:19] LABS: ALBUMIN 3.3 g/dl (3.4-5.0)
[2020-05-24 22:22] LABS: CREATININE 0.7 mg/dL (0.55-1.3); SGOT/AST 14 U/L (15-37)
[2020-05-24 22:23] LABS: IRON SERUM 13 ug/dL (50-175); TOTAL IRON BINDING CAPACITY 375 ug/dL (250-450)
[2020-05-24 22:24] LABS: ALK PHOS 92 U/L (45-117)
[2020-05-24 22:28] LABS: BILIRUBIN,TOTAL 0.5 mg/dL (0.2-1); SGPT/ALT 16 U/L (13-61)
[2020-05-24 22:31] LABS: HEMOGLOBIN 5.7 GM/dL (10.7-15.3); MCH 16.2 pg (25.7-33.7)
[2020-05-24 22:40] LABS: ANISOCYTOSIS 2+; MACROCYTOSIS 0; OVALOCYTE 2+; PLATELET ESTIMATE INCREASED; TARGET CELLS 2+
[2020-05-25 00:45] LABS: RETICULOCYTES 1.97 % (0.5-1.5)
[2020-05-25 00:59] LABS: LDH 170 U/L (84-246)
[2020-05-25] MEDS ORDERED: LEVOTHYROXINE NA 50 MCG TABLET (FP) PO ONE (01:18)
[2020-05-25] MEDS ORDERED: ACETAMINOPHEN 1000 MG/100 ML BAG IVPB PRN (01:19)
[2020-05-25] MEDS ORDERED: ATORVASTATIN CA 40 MG TABLET (FP) PO ONE (01:19)
[2020-05-25] MEDS ORDERED: ATORVASTATIN CA 40 MG TABLET (FP) ONE ×2 (02:29→22:47)
[2020-05-25] MEDS ORDERED: LEVOTHYROXINE NA 25 MCG TABLET (FP) ONE (02:29)
[2020-05-25] MEDS ORDERED: KCL 10 MEQ IVPB 10 MEQ/100 ML INFUS.BAG IVPB ONE ×3 (05:35→08:26)
[2020-05-25] MEDS: KCL 10 MEQ IVPB 10 MEQ/100 ML INFUS.BAG IVPB SCH ×3 (05:54→08:32)
[2020-05-25] MEDS ORDERED: MECLIZINE HCL 12.5 MG TABLET ONE ×2 (08:34→23:52)
[2020-05-25] MEDS: MECLIZINE HCL 12.5 MG TABLET PO PRN (08:47)
[2020-05-25] MEDS ORDERED: PANTOPRAZOLE SODIUM 40 MG VIAL ONE ×2 (10:23→22:48)
[2020-05-25] MEDS ORDERED: FUROSEMIDE 40 MG TABLET (FP) ONE (10:23)
[2020-05-25] MEDS: PANTOPRAZOLE SODIUM 40 MG VIAL IVPUSH SCH ×2 (10:38→23:44)
[2020-05-25] MEDS: FUROSEMIDE 20 MG TABLET (FP) PO SCH (10:38)
[2020-05-25] MEDS ORDERED: POLYETHYLENE GLYCOL 3350 119 GM BTL PO PRN (11:15)
[2020-05-25 11:42] LABS: EOS % 1.4 % (0-4.5); HEMATOCRIT 28.3 % (32.4-45.2); HEMOGLOBIN 8.6 GM/dL (10.7-15.3); MCH 20.1 pg (25.7-33.7); MCHC 30.4 g/dl (32.0-36.0); MEAN CELL VOLUME 66.1 fl (80-96); MEAN PLT VOLUME 8.7 fl (7.5-11.1); MONO % 7.3 % (3.8-10.2); NEUT % 69.3 % (42.8-82.8); PLATELET COUNT 442 K/MM3 (134-434); RBC 4.28 M/mm3 (3.60-5.2); RDW 29.2 % (11.6-15.6); WHITE BLOOD COUNT 11.9 K/mm3 (4.0-10.0)
[2020-05-25 12:10] LABS: ALBUMIN 3.2 g/dl (3.4-5.0); BLOOD UREA NITROGEN 8.5 mg/dL (7-18); CALCIUM 9.3 mg/dL (8.5-10.1)
[2020-05-25 12:13] LABS: CREATININE 0.5 mg/dL (0.55-1.3)
[2020-05-25 12:15] LABS: BILIRUBIN,TOTAL 2.3 mg/dL (0.2-1); TOT PROT 6.7 g/dl (6.4-8.2)
[2020-05-25] MEDS: INSULIN SLIDING SCALE (NOVOLOG) 1 VIAL SQ SCH ×3 (12:20→23:44)
[2020-05-25] MEDS ORDERED: TOPIRAMATE 25 MG TABLET ONE (22:47)
[2020-05-25] MEDS: TOPIRAMATE 25 MG TABLET PO SCH (23:44)
[2020-05-25] MEDS: ATORVASTATIN CA 40 MG TABLET (FP) PO SCH (23:44)
[2020-05-26] MEDS: INSULIN SLIDING SCALE (NOVOLOG) 1 VIAL SQ SCH ×4 (07:21→22:30)
[2020-05-26 09:15] VITALS: BMI 30.2
[2020-05-26] MEDS: FUROSEMIDE 20 MG TABLET (FP) PO SCH (09:20)
[2020-05-26] MEDS: TOPIRAMATE 25 MG TABLET PO SCH ×2 (09:21→22:30)
[2020-05-26] MEDS: PANTOPRAZOLE SODIUM 40 MG VIAL IVPUSH SCH (12:00)
[2020-05-26] MEDS: SENNOSIDES 8.6MG TABLET (FP) PO SCH ×2 (12:47→22:30)
[2020-05-26] MEDS: ATORVASTATIN CA 40 MG TABLET (FP) PO SCH (22:30)
[2020-05-27] MEDS: MECLIZINE HCL 12.5 MG TABLET PO PRN ×2 (06:54→22:23)
[2020-05-27] MEDS: INSULIN SLIDING SCALE (NOVOLOG) 1 VIAL SQ SCH ×4 (06:57→22:17)
[2020-05-27] MEDS ORDERED: IRON SUCROSE INJECTION 300 MG in SODIUM CHLORIDE 250 ML IVPB ONE (09:37)
[2020-05-27] MEDS: FUROSEMIDE 20 MG TABLET (FP) PO SCH (09:52)
[2020-05-27] MEDS: TOPIRAMATE 25 MG TABLET PO SCH ×2 (09:53→22:20)
[2020-05-27] MEDS: SENNOSIDES 8.6MG TABLET (FP) PO SCH (09:53)
[2020-05-27] MEDS: ATORVASTATIN CA 40 MG TABLET (FP) PO SCH (22:20)
[2020-05-27] MEDS: SENNOSIDES 8.6MG TABLET (FP) PO PRN (22:23)
[2020-05-28] MEDS: INSULIN SLIDING SCALE (NOVOLOG) 1 VIAL SQ SCH ×4 (06:57→22:24)
[2020-05-28] MEDS: LEVOTHYROXINE NA 50 MCG TABLET (FP) PO SCH (06:59)
[2020-05-28 09:16] LABS: HEMATOCRIT 30.4 % (32.4-45.2); HEMOGLOBIN 8.9 GM/dL (10.7-15.3); MCHC 29.4 g/dl (32.0-36.0); MEAN CELL VOLUME 67.7 fl (80-96); MEAN PLT VOLUME 8.8 fl (7.5-11.1); PLATELET COUNT 424 K/MM3 (134-434); RBC 4.49 M/mm3 (3.60-5.2); RDW 30.9 % (11.6-15.6); WHITE BLOOD COUNT 11.2 K/mm3 (4.0-10.0)
[2020-05-28 09:20] LABS: MCH 19.9 pg (25.7-33.7)
[2020-05-28 09:31] LABS: CALCIUM 9.9 mg/dL (8.5-10.1)
[2020-05-28 09:32] LABS: BLOOD UREA NITROGEN 11.2 mg/dL (7-18)
[2020-05-28 09:35] LABS: CREATININE 0.5 mg/dL (0.55-1.3)
[2020-05-28] MEDS: TOPIRAMATE 25 MG TABLET PO SCH ×2 (10:16→22:24)
[2020-05-28] MEDS: FUROSEMIDE 20 MG TABLET (FP) PO SCH (10:16)
[2020-05-28] MEDS: MECLIZINE HCL 12.5 MG TABLET PO PRN (11:47)
[2020-05-28] MEDS ORDERED: IRON SUCROSE INJECTION 300 MG in SODIUM CHLORIDE 235 ML IVPB ONE (19:00)
[2020-05-28] MEDS: ATORVASTATIN CA 40 MG TABLET (FP) PO SCH (22:24)
[2020-05-28] MEDS: SENNOSIDES 8.6MG TABLET (FP) PO PRN (22:31)
[2020-05-29] MEDS: INSULIN SLIDING SCALE (NOVOLOG) 1 VIAL SQ SCH ×4 (06:16→21:46)
[2020-05-29] MEDS: LEVOTHYROXINE NA 50 MCG TABLET (FP) PO SCH (06:16)
[2020-05-29 09:31] LABS: BASO % 0.4 % (0-2.0); HEMATOCRIT 29.6 % (32.4-45.2); HEMOGLOBIN 8.7 GM/dL (10.7-15.3); MCH 20.2 pg (25.7-33.7); MCHC 29.2 g/dl (32.0-36.0); MEAN PLT VOLUME 8.8 fl (7.5-11.1); MONO % 7.6 % (3.8-10.2); PLATELET COUNT 407 K/MM3 (134-434); RBC 4.29 M/mm3 (3.60-5.2); RDW 31.6 % (11.6-15.6); WHITE BLOOD COUNT 12.7 K/mm3 (4.0-10.0)
[2020-05-29 09:55] LABS: BLOOD UREA NITROGEN 10.8 mg/dL (7-18); CALCIUM 9.8 mg/dL (8.5-10.1)
[2020-05-29 09:56] LABS: ALBUMIN 3.1 g/dl (3.4-5.0)
[2020-05-29 09:59] LABS: CREATININE 0.5 mg/dL (0.55-1.3)
[2020-05-29 10:00] LABS: BILIRUBIN,TOTAL 0.4 mg/dL (0.2-1); TOT PROT 6.5 g/dl (6.4-8.2)
[2020-05-29 11:19] LABS: ANISOCYTOSIS 3+; MACROCYTOSIS 2+; OVALOCYTE 2+; PLATELET ESTIMATE NORMAL; TARGET CELLS 2+
[2020-05-29] MEDS: TOPIRAMATE 25 MG TABLET PO SCH ×2 (13:01→21:32)
[2020-05-29] MEDS: FUROSEMIDE 20 MG TABLET (FP) PO SCH (13:01)
[2020-05-29] MEDS ORDERED: POTASSIUM CHLORIDE TABS 20 MEQ TABLET.ER (FP) PO ONE (21:08)
[2020-05-29] MEDS: ATORVASTATIN CA 40 MG TABLET (FP) PO SCH (21:32)
[2020-05-29] MEDS: SENNOSIDES 8.6MG TABLET (FP) PO PRN (21:42)
[2020-05-30] MEDS: INSULIN SLIDING SCALE (NOVOLOG) 1 VIAL SQ SCH (06:52)
[2020-05-30] MEDS: LEVOTHYROXINE NA 50 MCG TABLET (FP) PO SCH (06:53)
[2020-05-30 08:47] LABS: BLOOD UREA NITROGEN 10.4 mg/dL (7-18)
[2020-05-30 08:49] LABS: CALCIUM 10.1 mg/dL (8.5-10.1)
[2020-05-30 08:50] LABS: CREATININE 0.6 mg/dL (0.55-1.3)
[2020-05-30 08:54] LABS: BASO % 0.4 % (0-2.0); EOS % 2.1 % (0-4.5); HEMATOCRIT 29.6 % (32.4-45.2); HEMOGLOBIN 8.6 GM/dL (10.7-15.3); LYMPH % 26.3 % (8-40); MCH 20.5 pg (25.7-33.7); MEAN CELL VOLUME 70.8 fl (80-96); MEAN PLT VOLUME 8.8 fl (7.5-11.1); MONO % 8.3 % (3.8-10.2); NEUT % 62.9 % (42.8-82.8); PLATELET COUNT 398 K/MM3 (134-434); RBC 4.19 M/mm3 (3.60-5.2); RDW 33.2 % (11.6-15.6)
[2020-05-30] MEDS: TOPIRAMATE 25 MG TABLET PO SCH (09:12)
[2020-05-30] MEDS: FUROSEMIDE 20 MG TABLET (FP) PO SCH (09:12)
[2020-05-30] MEDS ORDERED: IRON POLYSACCHARIDES 150 MG CAPSULE PO SCH (10:15)
[2020-05-30] MEDS ORDERED: PANTOPRAZOLE 40 MG TABLET PO SCH (10:30)
[2020-05-30] MEDS ORDERED: IRON SUCROSE INJECTION 300 MG in SODIUM CHLORIDE 235 ML IVPB ONE (11:00)
[2020-05-30 15:50] VITALS: BP 111/64; PULSE 80; TEMP 98.1
== END 2020-05-30 15:57 | DRG 812 ==
LOC: JER 20:18 → JERBED 23:53 → J6S 05-26 08:15 → J5S 05-29 14:48
PROVIDERS: ADMIT Student in an Organized Health Care Education/Training Program; ATTEND Family Medicine
PROC: 30233N1 Transfusion of Nonautologous Red Blood Cells into Peripheral Vein, Percutaneous Approach (ICD-10-PCS; 2020-05-25)
PROC: 0DB68ZX Excision of Stomach, Via Natural or Artificial Opening Endoscopic, Diagnostic (ICD-10-PCS; principal; 2020-05-29)
DX: D50.9 Iron deficiency anemia, unspecified (principal); K92.2 Gastrointestinal hemorrhage, unspecified; J44.9 Chronic obstructive pulmonary disease, unspecified; I10 Essential (primary) hypertension; E78.5 Hyperlipidemia, unspecified; K31.7 Polyp of stomach and duodenum; R13.10 Dysphagia, unspecified; E66.9 Obesity, unspecified; Z68.30 Body mass index [BMI] 30.0-30.9, adult; I25.2 Old myocardial infarction; E11.9 Type 2 diabetes mellitus without complications; M17.0 Bilateral primary osteoarthritis of knee; G40.909 Epilepsy, unspecified, not intractable, without status epilepticus; K64.9 Unspecified hemorrhoids; Z86.73 Personal history of transient ischemic attack (TIA), and cerebral infarction without residual deficits; K59.09 Other constipation
CPT/HCPCS: 36415; 36430; 80048; 80053; 82550; 82728; 82962; 83010; 83516; 83540; 83550; 83615; 84484; 85025; 85027; 85045; 85610; 85730; 86850; 86900; 86901; 86922; 88305-TC; 97116-GP; 97161-GP; 99285-25; C9803; J1756; P9058; U0003

== ENCOUNTER 2022-01-04 16:59 | Inpatient (IN) | payer OTHER ==
[2022-01-04 18:41] LABS: BASO % 0.7 % (0-2.0); EOS % 2.4 % (0-4.5); HEMATOCRIT 43.4 % (32.4-45.2); HEMOGLOBIN 14.8 GM/dL (10.7-15.3); LYMPH % 24.6 % (8-40); MCH 30.4 pg (25.7-33.7); MEAN CELL VOLUME 89.6 fl (80-96); MEAN PLT VOLUME 8.6 fl (7.5-11.1); MONO % 8.1 % (3.8-10.2); NEUT % 64.2 % (42.8-82.8); PLATELET COUNT 188 10^3/uL (134-434); RBC 4.85 M/mm3 (3.60-5.2); RDW 16.1 % (11.6-15.6); WHITE BLOOD COUNT 11.8 K/mm3 (4.0-10.0)
[2022-01-04 18:43] LABS: EPI CELLS 15 /uL (0-25.1); HYALINE CASTS 1 /uL (0-3.1); PH,URINE 6.5 (5.0-8.0); URINE APPEARANCE CLEAR; URINE BACTERIA 139 /uL (0-1359); URINE BILIRUBIN NEGATIVE (NEGATIVE); URINE COLOR YELLOW; URINE GLUCOSE (UA) NEGATIVE (NEGATIVE); URINE KETONE NEGATIVE (NEGATIVE); URINE LEUK ESTERASE 1+ (NEGATIVE); URINE NITRITE NEGATIVE (NEGATIVE); URINE PROTEIN NEGATIVE (NEGATIVE); URINE RBC 41 /uL (0-23.9); URINE UROBILINOGEN 0.2 mg/dL (0.2-1.0); URINE WBC 21 /uL (0-25.8)
[2022-01-04 18:50] LABS: INR 1.05 (0.83-1.09); PROTHROMBIN TIME (PATIENT) 12.1 SEC (9.7-13.0)
[2022-01-04 18:53] LABS: ACTIVATED PTT 27.6 SECONDS (25.2-36.5)
[2022-01-04 19:11] LABS: ALBUMIN 3.1 g/dl (3.4-5.0); CALCIUM 9.5 mg/dL (8.5-10.1)
[2022-01-04 19:14] LABS: CREATININE 0.7 mg/dL (0.55-1.3)
[2022-01-04 19:15] LABS: BILIRUBIN,TOTAL 0.4 mg/dL (0.2-1); TOT PROT 6.8 g/dl (6.4-8.2)
[2022-01-04] MEDS ORDERED: PANTOPRAZOLE SODIUM 40 MG VIAL IVPUSH ONE (20:04)
[2022-01-04] MEDS ORDERED: PANTOPRAZOLE SODIUM 40 MG VIAL ONE (20:52)
[2022-01-04] MEDS ORDERED: MECLIZINE HCL 12.5 MG TABLET PO PRN (21:41)
[2022-01-04] MEDS: LACTATED RINGERS SOLUTION 1,000 ML IV SCH (23:22)
[2022-01-04] MEDS: INSULIN SLIDING SCALE (NOVOLOG) 1 VIAL SQ SCH (23:23)
[2022-01-05 03:50] VITALS: BMI 32.9
[2022-01-05] MEDS: INSULIN SLIDING SCALE (NOVOLOG) 1 VIAL SQ SCH ×4 (06:35→21:34)
[2022-01-05] MEDS: LEVOTHYROXINE NA 50 MCG TABLET (FP) PO SCH (06:40)
[2022-01-05] MEDS: TOPIRAMATE 100 MG TABLET PO SCH ×2 (07:04→16:09)
[2022-01-05 09:03] LABS: INR 1.07 (0.83-1.09); PROTHROMBIN TIME (PATIENT) 12.3 SEC (9.7-13.0)
[2022-01-05 09:06] LABS: ACTIVATED PTT 29.9 SECONDS (25.2-36.5)
[2022-01-05 09:18] LABS: BASO % 0.4 % (0-2.0); EOS % 3.4 % (0-4.5); HEMATOCRIT 43.8 % (32.4-45.2); HEMOGLOBIN 14.6 GM/dL (10.7-15.3); LYMPH % 33.1 % (8-40); MCH 29.8 pg (25.7-33.7); MCHC 33.3 g/dl (32.0-36.0); MEAN CELL VOLUME 89.3 fl (80-96); MEAN PLT VOLUME 8.5 fl (7.5-11.1); MONO % 7.8 % (3.8-10.2); NEUT % 55.3 % (42.8-82.8); PLATELET COUNT 192 10^3/uL (134-434); RDW 16.3 % (11.6-15.6); WHITE BLOOD COUNT 9.4 K/mm3 (4.0-10.0)
[2022-01-05 09:34] LABS: BLOOD UREA NITROGEN 9.9 mg/dL (7-18); CALCIUM 9.4 mg/dL (8.5-10.1)
[2022-01-05 09:35] LABS: MAGNESIUM 2.2 mg/dL (1.8-2.4)
[2022-01-05] MEDS: PANTOPRAZOLE SODIUM 40 MG VIAL IVPUSH SCH ×2 (09:36→21:34)
[2022-01-05] MEDS: POTASSIUM CHLORIDE TABS 20 MEQ TABLET.ER (FP) PO SCH (09:36)
[2022-01-05 09:37] LABS: PHOSPHOROUS 3.1 mg/dL (2.5-4.9)
[2022-01-05 09:38] LABS: BILIRUBIN,TOTAL 0.5 mg/dL (0.2-1); CREATININE 0.5 mg/dL (0.55-1.3); TOT PROT 6.5 g/dl (6.4-8.2)
[2022-01-05] MEDS ORDERED: PATIENT'S OWN MEDICATION (NON-FORMULARY) (Olopatadine Hcl [Pataday] 2.5 ML Drops) OP SCH (10:00)
[2022-01-05] MEDS: ARTIFICIAL TEARS (POLYVINYL ALCOHOL) OPTH DROPS OU SCH ×2 (10:18→21:34)
[2022-01-05] MEDS: ARIPiprazole 2 MG TABLET PO SCH (10:19)
[2022-01-05 12:13] VITALS: RESP 18
[2022-01-05] MEDS: ATORVASTATIN CA 40 MG TABLET (FP) PO SCH (21:34)
[2022-01-05] MEDS: LACTATED RINGERS SOLUTION 1,000 ML IV SCH (22:39)
[2022-01-06] MEDS: INSULIN SLIDING SCALE (NOVOLOG) 1 VIAL SQ SCH ×4 (06:25→21:10)
[2022-01-06] MEDS: LEVOTHYROXINE NA 50 MCG TABLET (FP) PO SCH (06:26)
[2022-01-06] MEDS: TOPIRAMATE 100 MG TABLET PO SCH ×2 (06:26→16:15)
[2022-01-06] MEDS: LACTATED RINGERS SOLUTION 1,000 ML IV SCH (06:28)
[2022-01-06] MEDS: ARIPiprazole 2 MG TABLET PO SCH (09:27)
[2022-01-06] MEDS: PANTOPRAZOLE SODIUM 40 MG VIAL IVPUSH SCH (09:27)
[2022-01-06] MEDS: POTASSIUM CHLORIDE TABS 20 MEQ TABLET.ER (FP) PO SCH (09:27)
[2022-01-06] MEDS: ARTIFICIAL TEARS (POLYVINYL ALCOHOL) OPTH DROPS OU SCH ×2 (09:28→21:05)
[2022-01-06] MEDS: POLYETHYLENE GLYCOL (HEALTHYLAX) 3350 17 GM PACKET PO SCH ×2 (15:53→21:05)
[2022-01-06] MEDS: ATORVASTATIN CA 40 MG TABLET (FP) PO SCH (21:06)
[2022-01-07] MEDS ORDERED: INSULIN (NOVOLOG) ASPART 100 UNITS/ML 10ML VIAL ONE (05:46)
[2022-01-07] MEDS: POLYETHYLENE GLYCOL (HEALTHYLAX) 3350 17 GM PACKET PO SCH ×3 (05:48→21:17)
[2022-01-07] MEDS: TOPIRAMATE 100 MG TABLET PO SCH ×2 (06:41→16:41)
[2022-01-07] MEDS: INSULIN SLIDING SCALE (NOVOLOG) 1 VIAL SQ SCH ×4 (06:43→21:25)
[2022-01-07] MEDS: LEVOTHYROXINE NA 50 MCG TABLET (FP) PO SCH (06:43)
[2022-01-07] MEDS: ARTIFICIAL TEARS (POLYVINYL ALCOHOL) OPTH DROPS OU SCH ×2 (09:48→21:18)
[2022-01-07] MEDS: ARIPiprazole 2 MG TABLET PO SCH (09:49)
[2022-01-07] MEDS: PANTOPRAZOLE 40 MG TABLET PO SCH (09:49)
[2022-01-07] MEDS: POTASSIUM CHLORIDE TABS 20 MEQ TABLET.ER (FP) PO SCH (09:49)
[2022-01-07] MEDS ORDERED: MAGNESIUM SULFATE 16 OZ CRYSTALS TP ONE (11:59)
[2022-01-07] MEDS: ATORVASTATIN CA 40 MG TABLET (FP) PO SCH (21:18)
[2022-01-08] MEDS: INSULIN SLIDING SCALE (NOVOLOG) 1 VIAL SQ SCH (06:41)
[2022-01-08] MEDS: POLYETHYLENE GLYCOL (HEALTHYLAX) 3350 17 GM PACKET PO SCH (06:41)
[2022-01-08] MEDS: LEVOTHYROXINE NA 50 MCG TABLET (FP) PO SCH (06:41)
[2022-01-08] MEDS: TOPIRAMATE 100 MG TABLET PO SCH (06:42)
[2022-01-08] MEDS: ARTIFICIAL TEARS (POLYVINYL ALCOHOL) OPTH DROPS OU SCH (09:21)
[2022-01-08] MEDS: POTASSIUM CHLORIDE TABS 20 MEQ TABLET.ER (FP) PO SCH (09:22)
[2022-01-08] MEDS: PANTOPRAZOLE 40 MG TABLET PO SCH (09:22)
[2022-01-08] MEDS: ARIPiprazole 2 MG TABLET PO SCH (09:22)
[2022-01-08 09:31] LABS: BASO % 0.4 % (0-2.0); EOS % 2.5 % (0-4.5); HEMATOCRIT 47.8 % (32.4-45.2); HEMOGLOBIN 15.6 GM/dL (10.7-15.3); LYMPH % 23.3 % (8-40); MCH 29.5 pg (25.7-33.7); MCHC 32.6 g/dl (32.0-36.0); MEAN CELL VOLUME 90.7 fl (80-96); MEAN PLT VOLUME 8.6 fl (7.5-11.1); MONO % 5.8 % (3.8-10.2); PLATELET COUNT 160 10^3/uL (134-434); RBC 5.27 M/mm3 (3.60-5.2); RDW 15.8 % (11.6-15.6); WHITE BLOOD COUNT 11.4 K/mm3 (4.0-10.0)
[2022-01-08 09:59] LABS: CALCIUM 9.4 mg/dL (8.5-10.1)
[2022-01-08 10:00] LABS: MAGNESIUM 2.2 mg/dL (1.8-2.4)
[2022-01-08 10:02] LABS: BLOOD UREA NITROGEN 14.4 mg/dL (7-18); CREATININE 0.6 mg/dL (0.55-1.3)
[2022-01-08 10:03] LABS: BILIRUBIN,TOTAL 0.6 mg/dL (0.2-1); TOT PROT 6.7 g/dl (6.4-8.2)
[2022-01-08 11:26] VITALS: BP 126/68; PULSE 74; TEMP 97.8
== END 2022-01-08 13:01 | DRG 395 ==
LOC: JER 16:59 → JERBED 19:47 → J6S 01-05 00:38
PROVIDERS: ADMIT Internal Medicine; ATTEND Nurse Practitioner Family
DX: K64.8 Other hemorrhoids (principal); E11.9 Type 2 diabetes mellitus without complications; E78.5 Hyperlipidemia, unspecified; D64.9 Anemia, unspecified; M17.0 Bilateral primary osteoarthritis of knee; I25.2 Old myocardial infarction; J44.9 Chronic obstructive pulmonary disease, unspecified; D21.9 Benign neoplasm of connective and other soft tissue, unspecified; R31.9 Hematuria, unspecified; E66.9 Obesity, unspecified; Z68.33 Body mass index [BMI] 33.0-33.9, adult; E03.9 Hypothyroidism, unspecified; K59.00 Constipation, unspecified
CPT/HCPCS: 36415; 71045-TC-FY; 76775-TC; 80053; 81003; 82272; 82728; 82962; 83540; 83550; 83735; 84100; 84466; 84484; 85025; 85610; 85730; 86850; 86900; 86901; 87086; 87186; 93005; 93010; 99285-25; C9803-CS; U0003; U0005

== ENCOUNTER 2022-03-07 18:03 | Emergency (ER) | payer OTHER ==
[2022-03-07 18:39] VITALS: TEMP 98.1
[2022-03-07 22:10] VITALS: BP 112/50; PULSE 85; RESP 18
[2022-03-07] MEDS ORDERED: ACETAMINOPHEN 500 MG TABLET (FP) PO ONE (22:12)
[2022-03-07] MEDS ORDERED: ACETAMINOPHEN 325 MG TABLET (FP) ONE (22:50)
[2022-03-07 23:22] LABS: EOS % 4.4 % (0-4.5); HEMATOCRIT 43.5 % (32.4-45.2); HEMOGLOBIN 13.8 GM/dL (10.7-15.3); LYMPH % 29.7 % (8-40); MCH 28.4 pg (25.7-33.7); MCHC 31.8 g/dl (32.0-36.0); MEAN CELL VOLUME 89.2 fl (80-96); MEAN PLT VOLUME 8.1 fl (7.5-11.1); MONO % 8.6 % (3.8-10.2); NEUT % 56.3 % (42.8-82.8); PLATELET COUNT 218 10^3/uL (134-434); RBC 4.88 M/mm3 (3.60-5.2); RDW 15.8 % (11.6-15.6); WHITE BLOOD COUNT 11.2 K/mm3 (4.0-10.0)
[2022-03-07 23:46] LABS: BLOOD UREA NITROGEN 18.3 mg/dL (7-18); CALCIUM 9.4 mg/dL (8.5-10.1)
[2022-03-07 23:50] LABS: CREATININE 0.7 mg/dL (0.55-1.3)
[2022-03-08] MEDS ORDERED: ACETAMINOPHEN 325 MG TABLET (FP) PO ONE (02:57)
[2022-03-08] MEDS ORDERED: ACETAMINOPHEN 325 MG TABLET (FP) ONE (03:13)
== END 2022-03-08 04:59 ==
LOC: EDBD → JER 18:03
DX: R22.41 Localized swelling, mass and lump, right lower limb (principal)
CPT/HCPCS: 36415; 73701-TC-RT; 80048; 85025; 93005; 93010; 93971-TC; 99285-25; Q9967

== ENCOUNTER 2022-03-29 17:50 | Inpatient (IN) | payer OTHER ==
[2022-03-29 18:07] VITALS: BMI 35.7
[2022-03-29 20:45] LABS: BASO % 1.7 % (0-2.0); HEMATOCRIT 44.8 % (32.4-45.2); HEMOGLOBIN 14.8 GM/dL (10.7-15.3); LYMPH % 25.3 % (8-40); MCH 29.6 pg (25.7-33.7); MCHC 33.1 g/dl (32.0-36.0); MEAN CELL VOLUME 89.6 fl (80-96); MEAN PLT VOLUME 8.8 fl (7.5-11.1); MONO % 7.2 % (3.8-10.2); NEUT % 62.8 % (42.8-82.8); PLATELET COUNT 202 10^3/uL (134-434); RDW 16.6 % (11.6-15.6); WHITE BLOOD COUNT 10.1 K/mm3 (4.0-10.0)
[2022-03-29 20:54] LABS: INR 1.02 (0.83-1.09); PROTHROMBIN TIME (PATIENT) 11.7 SEC (9.7-13.0)
[2022-03-29 21:13] LABS: CALCIUM 9.7 mg/dL (8.5-10.1)
[2022-03-29 21:15] LABS: ALBUMIN 3.2 g/dl (3.4-5.0); BLOOD UREA NITROGEN 17.6 mg/dL (7-18)
[2022-03-29 21:18] LABS: BILIRUBIN,TOTAL 0.2 mg/dL (0.2-1); CREATININE 0.7 mg/dL (0.55-1.3); TOT PROT 6.8 g/dl (6.4-8.2)
[2022-03-29 23:46] LABS: EPI CELLS 3 /uL (0-25.1); HYALINE CASTS 0 /uL (0-3.1); URINE APPEARANCE CLOUDY; URINE BACTERIA 9 /uL (0-1359); URINE BILIRUBIN NEGATIVE (NEGATIVE); URINE COLOR YELLOW; URINE GLUCOSE (UA) NEGATIVE (NEGATIVE); URINE KETONE NEGATIVE (NEGATIVE); URINE LEUK ESTERASE NEGATIVE (NEGATIVE); URINE NITRITE NEGATIVE (NEGATIVE); URINE PROTEIN NEGATIVE (NEGATIVE); URINE RBC 7 /uL (0-23.9); URINE UROBILINOGEN 0.2 mg/dL (0.2-1.0); URINE WBC 1 /uL (0-25.8)
[2022-03-30] MEDS: DEXTROSE 5%-0.45% SALINE 1,000 ML IV SCH (07:56)
[2022-03-30] MEDS: PANTOPRAZOLE SODIUM 40 MG VIAL IVPUSH SCH (10:00)
[2022-03-30] MEDS ORDERED: PANTOPRAZOLE SODIUM 40 MG VIAL ONE (10:43)
[2022-03-30 11:36] LABS: BASO % 0.9 % (0-2.0); EOS % 1.6 % (0-4.5); HEMATOCRIT 45.8 % (32.4-45.2); HEMOGLOBIN 14.6 GM/dL (10.7-15.3); LYMPH % 19.5 % (8-40); MCH 28.7 pg (25.7-33.7); MCHC 31.8 g/dl (32.0-36.0); MEAN CELL VOLUME 90.4 fl (80-96); MEAN PLT VOLUME 8.9 fl (7.5-11.1); MONO % 6.2 % (3.8-10.2); NEUT % 71.8 % (42.8-82.8); PLATELET COUNT 198 10^3/uL (134-434); RBC 5.07 M/mm3 (3.60-5.2); RDW 16.6 % (11.6-15.6); WHITE BLOOD COUNT 11.7 K/mm3 (4.0-10.0)
[2022-03-30 12:01] LABS: BLOOD UREA NITROGEN 10.1 mg/dL (7-18); CALCIUM 9.6 mg/dL (8.5-10.1)
[2022-03-30 12:05] LABS: CREATININE 0.6 mg/dL (0.55-1.3)
[2022-03-30] MEDS ORDERED: POLYETHYLENE GLYCOL (HEALTHYLAX) 3350 17 GM PACKET PO SCH (13:15)
[2022-03-30] MEDS ORDERED: PNEUMOC 20-VAL CONJ-DIP CRM/PF 0.5 ML SYRINGE IM ONE (19:15)
[2022-03-30] MEDS: TOPIRAMATE 25 MG TABLET PO SCH (22:05)
[2022-03-30] MEDS: MECLIZINE HCL 12.5 MG TABLET PO PRN (22:05)
[2022-03-30] MEDS: POLYETHYLENE GLYCOL (HEALTHYLAX) 3350 17 GM PACKET PO SCH (22:06)
[2022-03-30] MEDS: ARTIFICIAL TEARS (POLYVINYL ALCOHOL) OPTH DROPS OU SCH (22:09)
[2022-03-31] MEDS: DEXTROSE 5%-0.45% SALINE 1,000 ML IV SCH (05:28)
[2022-03-31] MEDS: LEVOTHYROXINE NA 50 MCG TABLET (FP) PO SCH (06:36)
[2022-03-31] MEDS: POLYETHYLENE GLYCOL (HEALTHYLAX) 3350 17 GM PACKET PO SCH ×3 (06:36→21:43)
[2022-03-31] MEDS: ARIPiprazole 2 MG TABLET PO SCH (09:47)
[2022-03-31] MEDS: PANTOPRAZOLE SODIUM 40 MG VIAL IVPUSH SCH (09:47)
[2022-03-31] MEDS: TOPIRAMATE 25 MG TABLET PO SCH ×2 (09:47→21:43)
[2022-03-31] MEDS ORDERED: POTASSIUM CHLORIDE TABS 20 MEQ TABLET.ER (FP) PO SCH (10:00)
[2022-03-31] MEDS ORDERED: FUROSEMIDE 20 MG TABLET (FP) PO SCH (10:00)
[2022-03-31] MEDS: CEFTRIAXONE 1 GM in DEXTROSE 5%-WATER - 50 ML IVPB SCH (10:48)
[2022-03-31 16:13] LABS: BASO % 0.3 % (0-2.0); EOS % 3.6 % (0-4.5); HEMATOCRIT 42.5 % (32.4-45.2); HEMOGLOBIN 13.9 GM/dL (10.7-15.3); LYMPH % 25.7 % (8-40); MCH 29.3 pg (25.7-33.7); MCHC 32.7 g/dl (32.0-36.0); MEAN CELL VOLUME 89.5 fl (80-96); MEAN PLT VOLUME 8.1 fl (7.5-11.1); MONO % 8.4 % (3.8-10.2); PLATELET COUNT 191 10^3/uL (134-434); RBC 4.75 M/mm3 (3.60-5.2); RDW 16.5 % (11.6-15.6)
[2022-03-31 16:28] LABS: BLOOD UREA NITROGEN 12.7 mg/dL (7-18); CALCIUM 9.2 mg/dL (8.5-10.1)
[2022-03-31 16:32] LABS: CREATININE 0.7 mg/dL (0.55-1.3)
[2022-03-31] MEDS: PATIENT'S OWN MEDICATION (NON-FORMULARY) (Cyclosporine [Restasis] 1 EACH Droperette) OP SCH (19:53)
[2022-03-31] MEDS: MECLIZINE HCL 12.5 MG TABLET PO PRN (21:44)
[2022-03-31] MEDS: ARTIFICIAL TEARS (POLYVINYL ALCOHOL) OPTH DROPS OU SCH (23:14)
[2022-04-01] MEDS: POLYETHYLENE GLYCOL (HEALTHYLAX) 3350 17 GM PACKET PO SCH ×3 (06:28→21:15)
[2022-04-01] MEDS: LEVOTHYROXINE NA 50 MCG TABLET (FP) PO SCH (06:28)
[2022-04-01] MEDS: DEXTROSE 5%-0.45% SALINE 1,000 ML IV SCH (06:28)
[2022-04-01] MEDS: CEFTRIAXONE 1 GM in DEXTROSE 5%-WATER - 50 ML IVPB SCH (10:59)
[2022-04-01] MEDS: PANTOPRAZOLE SODIUM 40 MG VIAL IVPUSH SCH (10:59)
[2022-04-01] MEDS: TOPIRAMATE 25 MG TABLET PO SCH ×2 (11:00→21:15)
[2022-04-01] MEDS: ARIPiprazole 2 MG TABLET PO SCH (12:04)
[2022-04-01 19:00] VITALS: BP 110/59
[2022-04-01] MEDS: ARTIFICIAL TEARS (POLYVINYL ALCOHOL) OPTH DROPS OU SCH (22:02)
[2022-04-01 22:23] VITALS: PULSE 76; RESP 17; TEMP 98.4
== END 2022-04-01 22:24 | DRG 394 ==
LOC: JER 17:50 → JERBED 20:50 → J4S 03-30 16:56
PROVIDERS: ADMIT Internal Medicine; ATTEND Internal Medicine
DX: K64.8 Other hemorrhoids (principal); K62.5 Hemorrhage of anus and rectum; Z68.41 Body mass index [BMI] 40.0-44.9, adult; I10 Essential (primary) hypertension; J44.9 Chronic obstructive pulmonary disease, unspecified; E78.5 Hyperlipidemia, unspecified; E11.9 Type 2 diabetes mellitus without complications; E03.9 Hypothyroidism, unspecified; I25.2 Old myocardial infarction; Z86.73 Personal history of transient ischemic attack (TIA), and cerebral infarction without residual deficits; D50.9 Iron deficiency anemia, unspecified; Z86.16 Personal history of COVID-19; K59.00 Constipation, unspecified; E66.9 Obesity, unspecified; F25.9 Schizoaffective disorder, unspecified
CPT/HCPCS: 0241U-QW; 36415; 71045-TC-FY; 74174-TC; 80048; 80053; 81003; 82272; 85025; 85610; 85730; 86850; 86900; 86901; 87086; 93005; 93010; 93306-TC; 97116-GP; 97161-GP; 99285-25